=== PATIENT | male | born 1945 | race Caucasian/White ===

== ENCOUNTER → 2017-01-23 | Day surgery (SDC) | payer OTHER ==
[2017-01-14 11:05] VITALS: BMI 29.0
[~2017-01-23] VITALS: Ht 170.2 cm; Wt 86.4 kg
[~2017-01-23] MED LIST: CETI10TA84 PO; ECHINACEA PO; LIDOCAINE HCL 2% 2 ML VIAL (20MG/ML) ONE; MULT-506 PO; OXGN; PROPOFOL IV EMULSION 10 MG/ML 20 ML VIAL IV ONE; SNG10 PO; SODIUM CHLORIDE 0.9% 500ML 500 ML IV ONE; UMEC1AER INH; VNTHFA/IN INH
--- NOTE | 2017-01-23 08:36 | Endo History and Physical ---
History & Physical Date of Service: Jan 23, 2017. Chief Complaint: Screening colonoscopy Referring Physician: Dr. Waters History of Present Illness Average risk screening colonoscopy Past Surgical History Hx Cardiac Surgery: No Hx Internal Defibrillator: No Hx Pacemaker: No Hx Abdominal Surgery: Yes (ANGEL) Hx of Implantable Prosthesis: No Hx Post-Op Nausea and Vomiting: No Hx Cancer Surgery: No Hx Thoracic Surgery: No Hx Orthopedic: No Hx Urinary Tract Surgery: Yes (VESTICULAR SURGERY) Family History Esophogeal [place] Social History Smoking Status: Former Smoker Hx Substance Use: No Hx Alcohol Use: No Allergies Coded Allergies: No Known Allergies (Verified , 01/14/17) Current Medications Reported Home Medications Medications Dose Route/Sig Max Daily Dose Days Date Category Multivitamin (Multivitamins) Tab 1 Tab PO QAM 01/14/17 Reported Oxygen Gas 2 Liters NA HS 01/14/17 Reported Anoro Ellipta 62.5-25 Mcg/INH (Umeclidinium-Vilanterol) 1 Aer Aer 1 Puff INH QAM 01/14/17 Reported Ventolin Hfa (Albuterol) 200 Puffs/90323 Mcg Aers 2-4 Puffs INH Q6H PRN 01/14/17 Reported Singulair * (Montelukast Sodium) 10 Mg Tab 10 Mg PO QPM 08/04/07 Reported Zyrtec (Cetirizine HCl) 10 Mg Tab 10 Mg PO QAM 08/04/07 Reported Vital Signs Weight (Kilograms): 86.36 Height (Feet): 5 Height (Inches): 7 Physical Exam General Appearance: WD/WN, no apparent distress Respiratory/Chest: Auscultation: breath sounds normal, no wheezing Cardiovascular: Heart Auscultation: RRR, no murmurs Abdomen: Inspection & Palpation: soft, no tenderness, guarding & rebound Assessment and Plan Cleared for colonoscopy
[2017-01-23 08:39] VITALS: Ht 170.2 cm; Wt 86.4 kg
--- NOTE | 2017-01-23 09:32 | GI REPORT ---
Procedure Date: 01/23/2017 9:00 AM Procedure: Colonoscopy Indications: Screening for colorectal malignant neoplasm, Incidental - Chronic diarrhea Medicines: Propofol per Anesthesia Complications: No immediate complications. Estimated blood loss: None. Estimated Blood Loss: Estimated blood loss: none. Procedure: Pre-Anesthesia Assessment: - Prior to the procedure, a History and Physical was performed, and patient medications, allergies and sensitivities were reviewed. The patient's tolerance of previous anesthesia was reviewed. - ASA Grade Assessment: III - A patient with severe systemic disease. After I obtained informed consent, the scope was passed under direct vision. Throughout the procedure, the patient's blood pressure, pulse, and oxygen saturations were monitored continuously. The scope was introduced through the anus and advanced to the terminal ileum, with identification of the appendiceal orifice and IC valve. The colonoscopy was performed with ease. The patient tolerated the procedure well. The quality of the bowel preparation was excellent. The bowel preparation used was split dose MIralax. Findings: A 2 mm polyp was found in the transverse colon. The polyp was sessile. The polyp was removed with a cold snare. Resection and retrieval were complete. A 7 mm polyp was found in the descending colon. The polyp was semi-sessile. The polyp was removed with a hot snare. Resection and retrieval were complete. A 7 mm polyp was found in the sigmoid colon. The polyp was semi-sessile. The polyp was removed with a hot snare. Resection and retrieval were complete. Multiple diverticula were found in the sigmoid colon. Normal mucosa was found in the entire colon. Biopsies for histology were taken with a cold forceps from the entire colon for evaluation of microscopic colitis. Fluid aspiration was performed through the scope suction channel. The amount of fluid collected was 10 mL. Sample(s) were sent for bacterial cultures, Clostridium difficile and ova and parasites. Internal hemorrhoids were found during retroflexion. The hemorrhoids were small. Verification of patient identification for the specimens was done by the physician and nurse using the patient's name, date and medical record number. Impression: - One 2 mm polyp in the transverse colon, removed with a cold snare. Resected and retrieved. - One 7 mm polyp in the descending colon, removed with a hot snare. Resected and retrieved. - One 7 mm polyp in the sigmoid colon, removed with a hot snare. Resected and retrieved. - Diverticulosis in the sigmoid colon. - Normal mucosa in the entire examined colon. Biopsied. Fluid aspiration performed. - Internal hemorrhoids. - The colon was otherwise normal to the terminal ileum with retroflexed views of the colon and terminal ileum. Recommendation: - Repeat colonoscopy for surveillance based on pathology results. - Discharge patient to home (with escort). Brian Siddiqi M.D. Brian Siddiqi MD 01/23/2017 9:32:23 AM This report has been signed electronically. Note Initiated On: 01/23/2017 9:00 AM I attest to the content of the Intraoperative Record and orders documented therein, exceptions below
--- NOTE | 2017-01-23 09:33 | Discharge Instructions ---
Endoscopy Patient Instructions Date / Procedure(s) Performed Jan 23, 2017. Colonoscopy Allergy Information Coded Allergies: No Known Allergies (Verified , 01/14/17) Discharge Date / Findings Jan 23, 2017. Multiple polyps, diverticulosis, internal hemorrhoids Medication Instructions Restart Stopped Medication(s): Restart all medications today. Provider Instructions Activity Restrictions - No exercising or heavy lifting for 24 hours. - Do not drink alcohol the day of the procedure. - Do not drive a car or operate machinery until the day after the procedure. - Do not make any important decisions or sign important papers in 24 hours after the procedure. Following Day: - Return to full activity which may include returning to work/school. Diet Start your diet with liquids and light foods (jello, soup, juice, toast). Then eat your usual diet if not nauseated. Treatment For Common After Affects For mild abdominal pain, bloating, or excessive gas: - Rest - Eat lightly - Lie on right side Follow-Up Information Follow-up with Dr. cornejo as scheduled Anesthesia Information What You Should Know You have had a procedure that required some medicine to reduce anxiety and discomfort. This treatment is called moderate sedation. After receiving the treatment, you may be sleepy, but you will be able to breathe on your own. The effects of the treatment may last for several hours. Follow these instructions along with Activity/Diet recommendations noted above: * Do NOT do anything where dizziness or clumsiness would be dangerous. * Rest quietly at home today, then you can be up and about tomorrow. * Have a responsible person stay with you the rest of today. * You may have had an I.V. today. If so, you may take the dressing off later today. Recommendations Call your doctor if: * Trouble breathing * Continuous vomiting for more than 24 hours * Temperature above 101 degrees * Severe abdominal pain or bloating * Pain not relieved by pain medicine ordered * There is increased drainage or redness from any incision * A large amount of rectal bleeding greater than 2-3 tablespoons. (If you had a polyp/s removed or have hemorrhoids, a small amount of blood - from the rectum is to be expected.) * You have any unanswered questions or concerns. IN THE EVENT OF A SERIOUS EMERGENCY, GO TO THE NEAREST EMERGENCY ROOM Your discharge instructions were prepared by provider Brian Siddiqi. Patient Instructions Signature Page [place] Patient (or Guardian) Signature/Date: I have read and understand the instructions given to me by my caregivers. Caregiver/RN/Doctor Signature/Date: The above-named patient and/or guardian has received patient instructions on this date. + Original Patient Signature Page (only) stays with chart. Please make copy for patient.
--- NOTE | 2017-01-23 10:06 | Anesthesiology Progress Note ---
Anesthesia Post Op Note Date & Time Jan 23, 2017 at 10:06 Vital Signs Pain Intensity: 0 Vital Signs Past 12 Hours Date Time Temp Pulse Resp B/P (MAP) Pulse Ox O2 Delivery O2 Flow Rate FiO2 01/23/17 09:46 86 20 142/99 (113) 97 Room Air 01/23/17 09:42 107 20 123/88 (100) 97 Room Air 01/23/17 08:41 36.4 95 20 166/100 (122) 93 Room Air Notes Mental Status: alert / awake / arousable, participated in evaluation Pt Amnestic to Procedure: Yes Nausea / Vomiting: adequately controlled Pain: adequately controlled Airway Patency, RR, SpO2: stable & adequate BP & HR: stable & adequate Hydration State: stable & adequate Anesthetic Complications: no major complications apparent
[2017-01-23 10:15] VITALS: BP 159/105; PULSE 88; O2SAT 98
[2017-01-24 18:26] LABS: CRYPTOSPORIDIUM AG TC 37213 NOT DETECTED (NOT DETECTED); O&P GIARDIA AG NOT DETECTED (NOT DETECTED)
== END | disposition home or self-care (01) ==
LOC: C.GI 08:17
PROVIDERS: ATTEND Internal Medicine Gastroenterology
DX: Z12.11 Encounter for screening for malignant neoplasm of colon (principal); D12.4 Benign neoplasm of descending colon; D12.5 Benign neoplasm of sigmoid colon; D12.3 Benign neoplasm of transverse colon; K57.30 Diverticulosis of large intestine without perforation or abscess without bleeding; K64.8 Other hemorrhoids; R19.7 Diarrhea, unspecified; Z87.891 Personal history of nicotine dependence; Z99.81 Dependence on supplemental oxygen; Z79.899 Other long term (current) drug therapy

== ENCOUNTER → 2017-01-24 | Outpatient (CLI) | payer OTHER ==
[~2017-01-24] MED LIST changes: -LIDOCAINE HCL 2% 2 ML VIAL (20MG/ML) ONE; -PROPOFOL IV EMULSION 10 MG/ML 20 ML VIAL IV ONE; -SODIUM CHLORIDE 0.9% 500ML 500 ML IV ONE
[2017-01-24 17:26] LABS: BASO % 0.5 %; BASO ABS # 0.03 K/uL (0-0.2); COMPLETE YES; EOS % 3.3 %; HEMATOCRIT 48.6 % (42-52); IG% 0.2 %; LYMPH % 25.3 %; MEAN CORPUSCULAR HEMOGLOBIN 31.3 pg (25-34); MEAN CORPUSCULAR HGB CONC 33.3 g/dl (32-36); MEAN PLATELET VOLUME 9.7 fL (7.4-10.4); MONO % 14.1 %; NEUT % 56.6 %; PLATELET COUNT 213 K/uL (130-400); RED BLOOD COUNT 5.17 M/uL (4.7-6.1); WHITE BLOOD COUNT 6.32 K/uL (4.8-10.8)
[2017-01-24 18:20] LABS: ALT/SGPT 31 U/L (12-78); AST/SGOT 16 U/L (15-37); BLOOD UREA NITROGEN 16 mg/dl (7-18); BUN/CREATININE RATIO 16.2 (10-20); CALCIUM 9.2 mg/dl (8.5-10.1); CARBON DIOXIDE 30 mmol/L (21-32); CHLORIDE 106 mmol/L (98-107); CHOLESTEROL 180 mg/dl (0-200); CREATININE 0.98 mg/dl (0.60-1.40); GLUCOSE 86 mg/dl (70-99); POTASSIUM 3.6 mmol/L (3.5-5.1); SODIUM 143 mmol/L (136-145); TRIGLYCERIDES 106 mg/dl (0-150); VERY LOW DENSITY LIPOPROT CALC 21 mg/dl
[2017-01-24 18:23] LABS: ALKALINE PHOSPHATASE 59 U/L (45-117); CHOLESTEROL/HDL RATIO 2.8; HDL CHOLESTEROL 65 mg/dl; LDL CHOLESTEROL CALCULATED 94 mg/dl
== END | disposition home or self-care (01) ==
LOC: C.LABPVFM 15:53
PROVIDERS: ATTEND Neuromusculoskeletal Medicine & OMM
DX: Z00.00 Encounter for general adult medical examination without abnormal findings (principal); I10 Essential (primary) hypertension

== ENCOUNTER → 2017-03-05 | Outpatient (CLI) | payer OTHER ==
--- NOTE | 2017-03-05 09:12 | DIAGNOSTIC IMAGING REPORT ---
CHEST 2 VIEWS ROUTINE CLINICAL HISTORY: DISCOMFORT/EDEMA pain COMPARISON STUDY: 08/10/2007 FINDINGS: Mild stable chronic interstitial change. No focal infiltrate. Chronic linear scarring both lung bases. Stable nodular density medial right base. No acute infiltrate. IMPRESSION: Chronic change. No acute process. The above report was generated using voice recognition software. It may contain grammatical, syntax or spelling errors. Electronically signed by: Neal Gomez M.D. 03/05/2017 9:10 AM Dictated Date/Time: 03/05/2017 9:09 AM
[2017-03-05 12:51] LABS: BLOOD UREA NITROGEN 21 mg/dl (7-18); BUN/CREATININE RATIO 20.9 (10-20); CALCIUM 9.7 mg/dl (8.5-10.1); CARBON DIOXIDE 28 mmol/L (21-32); CHLORIDE 105 mmol/L (98-107); GLUCOSE 99 mg/dl (70-99); POTASSIUM 3.9 mmol/L (3.5-5.1); SODIUM 139 mmol/L (136-145)
[2017-03-05 13:09] LABS: LYME DISEASE AB IGG NEG (NEG); LYME DISEASE AB IGM NEG (NEG)
== END | disposition home or self-care (01) ==
LOC: C.RADPV 08:54
PROVIDERS: ATTEND Nurse Practitioner Family
DX: Z00.00 Encounter for general adult medical examination without abnormal findings (principal); R06.09 Other forms of dyspnea; R60.0 Localized edema; R07.89 Other chest pain

== ENCOUNTER 2017-05-29 21:37 | Inpatient (IN) | payer OTHER ==
[~2017-05-29] VITALS: Ht 170.2 cm; Wt 92.0 kg
[2017-05-29] MEDS ORDERED: NITROGLYCERIN OINT 2% 1GM PACKET EXT STA (21:44)
[2017-05-29] MEDS ORDERED: NITROGLYCERIN OINT 2% 1GM PACKET ONE (21:49)
--- NOTE | 2017-05-29 22:01 | EMERGENCY ROOM VISIT NOTE ---
History Report prepared by Jaison: Wiliam Antonio Under the Supervision of: Dr. Grupo Emery M.D. First contact with patient: 21:41 Stated Complaint: CHEST DISCOMFORT/HEAVY ARMS History of Present Illness The patient is a 71 year old male who presents to the Emergency Room with complaints of constant bilateral arm discomfort beginning a few hours ago. 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 He reports he had four episodes of diarrhea, developed chest pain, nausea, and became diaphoretic. The patient notes his arm heaviness was a 7/10 in severity and a 5/10 for the chest pain. He states he received aspirin and nitroglycerin. The patient reports he no longer has chest pain or nausea. He notes he uses an inhaler daily. The patient states he has not received a cardiac catheterization or a stress test because of his history of COPD. He report he recently was treated for hypertension. The patient denies vomiting. Source of History: patient Onset: few hours ago Position: other (bilateral arms) Symptom Intensity: 7/10 Quality: other (heaviness) Timing: constant Associated Symptoms: + diaphoresis, + chest pain, + nausea, + diarrhea, No vomiting Review of Systems See HPI for pertinent positives & negatives. A total of 10 systems reviewed and were otherwise negative. Past Medical & Surgical Medical Problems: (1) Chest pain of uncertain etiology Surgical Problems: (1) History of cholecystectomy Family History Patient reports no known family medical history. Social History Smoking Status: Former Smoker Alcohol Use: none Drug Use: none Marital Status: Housing Status: lives with significant other Occupation Status: retired Current/Historical Medications Scheduled Aspirin (Aspirin Ec), 81 MG PO QAM Cetirizine (Zyrtec), 10 MG PO QAM Echinacea (Echinacea), 3 CAP PO QAM Home O2 Therapy (Oxygen), 2 LITERS NA HS Hydrochlorothiazide (Hctz), 25 MG PO QAM Losartan Potassium (Cozaar), 25 MG PO QAM Montelukast Sodium (Singulair), 10 MG PO QPM Multivitamin (Multivitamin), 1 TAB PO QAM Umeclidinium-Vilanterol (Anoro Ellipta 62.5-25 Mcg/INH), 1 PUFF INH QAM Scheduled PRN Albuterol Hfa (Ventolin Hfa), 2 PUFFS INH Q4H PRN for SOB/Wheezing/Cough Azithromycin (Zithromax Z-Marko), 1 PKT PO UD PRN for COPD Rescue Kit Prednisone Tab (Prednisone), 10 MG PO UD PRN for COPD Rescue Kit Allergies Coded Allergies: No Known Allergies (Verified , 01/23/17) Physical Exam Vital Signs Date Time Temp Pulse Resp B/P (MAP) Pulse Ox O2 Delivery O2 Flow Rate FiO2 05/30/17 00:01 110 22 160/116 92 Room Air 05/29/17 23:31 106 19 147/108 93 Room Air 05/29/17 22:49 107 15 144/101 94 Room Air 05/29/17 22:19 Room Air 05/29/17 21:45 104 05/29/17 21:43 92 Room Air 05/29/17 21:40 92 Room Air 05/29/17 21:40 36.5 104 15 157/110 93 Room Air Physical Exam GENERAL: Patient is a healthy-appearing well-nourished 71 year old male. HEAD: Normocephalic atraumatic EYES: Ocular movements intact pupils equal and react to light OROPHARYNX mucous membranes are moist no exudates present no erythema or edema present NECK: Supple no nuchal rigidity CHEST: Good equal expansion LUNGS: Clear and equal to auscultation CARDIAC: Normal S1 and S2 ABDOMEN: Soft nontender no guarding BACK: No CVA tenderness EXTREMITIES: No pain upon palpation normal muscle strength in all groups no clubbing cyanosis or edema NEURO: Patient is following commands and answering questions appropriately. Alert and oriented x3 Cranial Nerves 2-12 grossly intact Medical Decision & Procedures ER Provider Diagnostic Interpretation: Radiology results as stated below per my review and radiologist interpretation: CHEST ONE VIEW PORTABLE HISTORY: Atypical CHEST PAIN COMPARISON: Chest 03/05/2017. FINDINGS: The lungs are hyperexpanded with apical predominant emphysematous changes. Increased markings at the lung bases is likely due to vascular crowding from the emphysema. No new focal lung consolidations to suggest pneumonia. No evidence for pulmonary edema. The heart is normal in size. No pleural effusions. No pneumothorax. Right lower lobe calcified granuloma is again noted. IMPRESSION: No significant change compared to the prior study. No acute process. Advanced emphysema is again noted. Electronically signed by: Miguelito Ramirez M.D. 05/29/2017 11:09 PM Dictated Date/Time: 05/29/2017 11:[address] ANGIOGRAPHY OF THE CHEST, PULMONARY EMBOLUS PROTOCOL CLINICAL HISTORY: Chest pain. COMPARISON STUDY: Chest CT October 22, 2007 and chest radiograph May 29, 2017. TECHNIQUE: Following IV administration of 94 mL of Optiray-320, helical axial images of the chest were obtained utilizing the pulmonary embolus protocol. Maximal intensity projections and sagittal and coronal reformats were viewed on an independent 3D workstation. IV contrast was administered without complication. A dose lowering technique was utilized adhering to the principles of ALARA. CT DOSE: 593.97 mGy.cm FINDINGS: No pulmonary emboli are identified. The size of the heart is normal. There is no evidence of thoracic aortic dissection. There is moderate coronary artery calcification. No pericardial effusion is present. Severe emphysema is noted. The central airways are patent. Linear right lower lobe opacity favors atelectasis. There is no consolidation to suggest pneumonia. Several right lung granulomas are noted, including a 2.2 cm right lower lobe granuloma. There is an indeterminate 6 mm left upper lobe nodule shown image 299 of 348. This is new since CT of October 22, 2007. A mild compression deformity involving superior endplate of L1 is age-indeterminate but likely old. A 2.5 cm left adrenal nodule measures low attenuation and is similar to CT of October 22, 2007. This is benign. Gallbladder is surgically absent. IMPRESSION: 1. No pulmonary emboli identified. 2. No acute intrathoracic findings. 3. Severe emphysema. 4. Linear right lower lobe opacity which favors atelectasis. 5. Indeterminate solid 6 mm left upper lobe nodule which is new since CT of October 22, 2007. Please follow according to the attached recommendations. Please refer to below summary of Fleischner criteria recommendations for follow-up of incidental CT nodules (Morris Georges, Guidelines for management of small pulmonary nodules detected on CT scans: A statement from the Fleischner Society, Radiology 237: [phone].) SOLID NODULES Solitary nodule size: <6 mm * low risk patients: no follow-up needed * high risk patients: optional CT at 12 months Solitary nodule size: 6-8 mm * low risk patients: follow-up at 6-12 months, then consider further follow-up at 18-24 months * high risk patients: initial follow-up CT at 6-12 months and then at 18-24 months if no change Solitary nodule size: >8 mm * either low or high risk patients - consider follow-up CT at 3 months, and/or CT-PET, and/or biopsy Multiple nodules size: <6 mm * low risk patients: no routine follow-up * high risk patients: optional CT at 12 months Multiple nodules size: 6-8 mm * low risk patients: follow-up at 3-6 months, then consider further follow-up at 18-24 months * high risk patients: follow-up at 3-6 months, then at 18-24 months if no change Multiple nodules size: >8 mm * low risk patients: follow-up at 3-6 months, then consider further follow-up at 18-24 months * high risk patients: follow-up at 3-6 months, then at 18-24 months if no change Note: newly detected indeterminate nodule in persons 35 years of age or older. * low risk patients: minimal or absent history of smoking and/or other known risk factors * high risk patients: history of smoking or of other known risk factors (e.g. first degree relative with lung cancer, or exposure to asbestos, radon, uranium) * if a nodule up to 8 mm is partly solid or is ground glass further follow-up is required after 24 months to exclude possible slow growing adenocarcinoma (TAB) Electronically signed by: Ubaldo Hewitt M.D. 05/30/2017 7:05 AM Dictated Date/Time: 05/30/2017 6:45 AM Laboratory Results 05/29/17 22:00 Test 05/29/17 22:00 05/29/17 22:28 05/29/17 22:32 Est Creatinine Clear Calc Drug Dose 68.8 ml/min Estimated GFR () 78.1 Estimated GFR (Non- 67.4 BUN/Creatinine Ratio 22.9 (10-20) Calcium Level 8.8 mg/dl (8.5-10.1) Total Bilirubin 0.4 mg/dl (0.2-1) Direct Bilirubin 0.1 mg/dl (0-0.2) Aspartate Amino Transf (AST/SGOT) 20 U/L (15-37) Alanine Aminotransferase (ALT/SGPT) 29 U/L (12-78) Alkaline Phosphatase 51 U/L (45-117) Total Creatine Kinase 106 U/L (39-308) Creatine Kinase MB 1.7 ng/ml (0.5-3.6) Creatine Kinase MB Ratio 1.6 (0-3.0) Total Protein 7.7 gm/dl (6.4-8.2) Albumin 4.0 gm/dl (3.4-5.0) Lipase 96 U/L (73-393) Bedside D-Dimer > 450 ng/mlFEU (0-450) Bedside Hemoglobin 15.3 g/dl (14.0-18.0) Bedside Hematocrit 45 % (42-52) Bedside Sodium 142 mEq/L (135-144) Bedside Potassium 3.5 mEq/L (3.3-5.0) Bedside Chloride 103 mEq/L (101-112) Bedside Total CO2 28 mEq/l (24-31) Anion Gap 16.0 mmol/L (16-25) Bedside Blood Urea Nitrogen 27 mg/dl (7-18) Bedside Creatinine 1.0 mg/dl (0.6-1.3) Bedside Glucose (other) 185 mg/dl (70-99) Bedside Ionized Calcium (Bassem) 1.14 mmol/l (1.12-1.32) Labs reviewed by ED physician. Medications Administered Medications (Trade) Dose Ordered Sig/Bora Route Start Time Stop Time Status Last Admin Dose Admin Nitroglycerin (Nitroglycerin 2% Oint) 1 inch NOW STAT EXT 05/29/17 21:44 05/29/17 21:45 DC 05/29/17 21:51 1 INCH ECG Indication: weakness Rate (beats per minute): 108 Rhythm: sinus tachycardia Findings: no acute ischemic change, no ectopy ED Course 2141: Past medical records reviewed. The patient was evaluated in room B07. A complete history and physical examination was performed. 2143: Ordered Nitroglycerin 1 inch EXT Medical Decision Differential diagnosis: Etiologies such as cardiac ischemia, aortic dissection, pulmonary embolism, pneumonia, pneumothorax, musculoskeletal, infections, pericarditis, myocarditis , esophageal rupture, gastrointestinal, as well as others were entertained. This is a 71-year-old male who presents emergency department complaining of chest pain. The patient had a vasovagal episode and began complaining of the chest pain which was relieved by nitroglycerin. He was given aspirin and placed a nitroglycerin glycerin paced here in the emergency department. I did discuss this case with the hospitalist service who agreed to admit the patient. Patient and are in agreement with the treatment plan. Medication Reconcilliation Current Medication List: was personally reviewed by me Blood Pressure Screening Patient's blood pressure: Elevated blood pressure Blood pressure disposition: Referred to PCP Impression Primary Impression: CHEST PAIN, UNSPECIFIED Scribe Attestation The scribe's documentation has been prepared under my direction and personally reviewed by me in its entirety. I confirm that the note above accurately reflects all work, treatment, procedures, and medical decision making performed by me. Departure Information Dispostion Still a Patient Referrals Bill Waters M.D. (PCP)
[2017-05-29 22:45] LABS: ISTAT HEMOGLOBIN 15.3 g/dl (14.0-18.0); ISTAT IONIZED CALCIUM 1.14 mmol/l (1.12-1.32)
[2017-05-29 22:46] LABS: BASO % 0.3 %; BASO ABS # 0.03 K/uL (0-0.2); COMPLETE YES; EOS % 0.5 %; HEMATOCRIT 44.7 % (42-52); IG% 0.3 %; LYMPH % 6.3 %; LYMPH ABS # 0.75 K/uL (1.2-3.4); MEAN CELL VOLUME 94.9 fL (80-100); MEAN CORPUSCULAR HEMOGLOBIN 32.9 pg (25-34); MEAN CORPUSCULAR HGB CONC 34.7 g/dl (32-36); MEAN PLATELET VOLUME 9.9 fL (7.4-10.4); MONO % 7.3 %; NEUT % 85.3 %; PLATELET COUNT 198 K/uL (130-400); RED BLOOD COUNT 4.71 M/uL (4.7-6.1); WHITE BLOOD COUNT 11.87 K/uL (4.8-10.8)
[2017-05-29 22:47] LABS: BUN/CREATININE RATIO 22.9 (10-20); CALCIUM 8.8 mg/dl (8.5-10.1); CREATININE 1.11 mg/dl (0.60-1.40); POTASSIUM 3.5 mmol/L (3.5-5.1)
[2017-05-29] MEDS ORDERED: PRED10TA PO (22:48)
[2017-05-29] MEDS ORDERED: HYDR25TA4 PO (22:48)
[2017-05-29] MEDS ORDERED: LOSA25TA18 PO (22:48)
[2017-05-29] MEDS ORDERED: ECHI80CA PO (22:48)
[2017-05-29] MEDS ORDERED: AZITTAB PO (22:48)
[2017-05-29] MEDS ORDERED: ASPI81TA28 PO (22:48)
[2017-05-29] MEDS ORDERED: MONT1TAB3 PO (22:48)
[2017-05-29 22:52] LABS: CKMB/CK RATIO 1.6 (0-3.0)
[2017-05-29] MEDS ORDERED: OPTIRAY 320 IV PRN (23:00)
--- NOTE | 2017-05-29 23:10 | DIAGNOSTIC IMAGING REPORT ---
CHEST ONE VIEW PORTABLE HISTORY: Atypical CHEST PAIN COMPARISON: Chest 03/05/2017. FINDINGS: The lungs are hyperexpanded with apical predominant emphysematous changes. Increased markings at the lung bases is likely due to vascular crowding from the emphysema. No new focal lung consolidations to suggest pneumonia. No evidence for pulmonary edema. The heart is normal in size. No pleural effusions. No pneumothorax. Right lower lobe calcified granuloma is again noted. IMPRESSION: No significant change compared to the prior study. No acute process. Advanced emphysema is again noted. Electronically signed by: Miguelito Ramirez M.D. 05/29/2017 11:09 PM Dictated Date/Time: 05/29/2017 11:06 PM
[2017-05-30] VITALS (12 sets, daily range): BP systolic 115–155; BP diastolic 82–105; PULSE 82–114; TEMP 36.5–36.9; O2SAT 91–98; Ht 170.2 cm; Wt 92.0 kg
[2017-05-30] MEDS ORDERED: ONDANSETRON INJ 2 MG/ML 2 ML VIAL IV PRN (00:30)
[2017-05-30] MEDS ORDERED: MoRPHine SULFATE 2 MG/ML CARP IV PRN (00:30)
[2017-05-30] MEDS ORDERED: ALBUTEROL HFA 8 GM INHALER INH PRN (00:30)
[2017-05-30] MEDS ORDERED: MAGNESIUM HYDROXIDE SUSP 30 ML UDC PO PRN (00:30)
[2017-05-30] MEDS ORDERED: ACETAMINOPHEN 325 MG TAB PO PRN (00:30)
[2017-05-30 01:09] LABS: PARTIAL THROMBOPLASTIN RATIO 0.9
[2017-05-30] MEDS ORDERED: HEPARIN 25,000 UNIT/500ML D5W 500 ML IV PRN (01:45)
[2017-05-30] MEDS ORDERED: METOPROLOL TARTRATE 25 MG TAB PO ONE ×2 (02:03→09:45)
--- NOTE | 2017-05-30 02:13 | History and Physical ---
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 The patient was at the concert when he suddenly started to suffer from bilat UE pain which radiated down both arms and suddenly felt nauseated. He sent to the bathroom and had a BM and while sitting he felt the pain improve. He then got up and as he was walking the bilat UE pain returned and had new onset left sided chest pain which was a 7/10. He then decided to come in for evaluation. The patient was evaluated after 325 mg of ASA and NTG and pain in arms and chest have resolved however he notes with any walking the arm pain will return. Patient has no history of DC in him for family. Quite smoking 4 years prior. Past Medical/Surgical History Surgical Problems: (1) History of cholecystectomy Status: Resolved Family History Patient reports no known family medical history. Social History Smoking Status: Former Smoker Smokeless Tobacco Use: No Alcohol Use: none Drug Use: none Marital Status: Housing status: lives with family Occupational Status: retired Immunizations History of Influenza Vaccine: Yes Influenza Vaccine Date: Apr 06, 2007 History of Tetanus Vaccine?: Yes Tetanus Immunization Date: Apr 06, 1999 History of Pneumococcal: Yes Pneumococcal Date: Aug 14, 2007 History of Hepatitis B Vaccine: No Multi-Drug Resistant Organisms History of MDRO: No Allergies Coded Allergies: No Known Allergies (Verified , 01/23/17) Home Medications Scheduled Aspirin (Aspirin Ec), 81 MG PO QAM Cetirizine (Zyrtec), 10 MG PO QAM Echinacea (Echinacea), 3 CAP PO QAM Home O2 Therapy (Oxygen), 2 LITERS NA HS Hydrochlorothiazide (Hctz), 25 MG PO QAM Losartan Potassium (Cozaar), 25 MG PO QAM Montelukast Sodium (Singulair), 10 MG PO QPM Multivitamin (Multivitamin), 1 TAB PO QAM Umeclidinium-Vilanterol (Anoro Ellipta 62.5-25 Mcg/INH), 1 PUFF INH QAM Scheduled PRN Albuterol Hfa (Ventolin Hfa), 2 PUFFS INH Q4H PRN for SOB/Wheezing/Cough Azithromycin (Zithromax Z-Marko), 1 PKT PO UD PRN for COPD Rescue Kit Prednisone Tab (Prednisone), 10 MG PO UD PRN for COPD Rescue Kit Review of Systems Constitutional: + sweats, No fever, No chills Eyes: No worsening of vision ENT: No hearing loss Respiratory: No cough, No sputum, No wheezing, No shortness of breath, No dyspnea on exertion, No dyspnea at rest Cardiovascular: + chest pain Abdomen: + nausea, + diarrhea, No vomiting, No constipation Musculoskeletal: No joint pain, No muscle pain Genitourinary - Male: No hematuria, No dysuria Neurologic: + weakness, No numbness/tingling, No balance problems Psychiatric: No depression symptoms Endocrine: + fatigue Hematologic / Lymphatic: No abnormal bleeding/bruising Integumentary: No rash Physical Exam Vital Signs Date Time Temp Pulse Resp B/P (MAP) Pulse Ox O2 Delivery O2 Flow Rate FiO2 05/30/17 01:41 36.9 114 16 155/98 93 Room Air 05/30/17 01:12 112 15 150/112 90 05/30/17 00:31 108 17 141/111 90 Room Air 05/30/17 00:01 110 22 160/116 92 Room Air 05/29/17 23:31 106 19 147/108 93 Room Air 05/29/17 22:49 107 15 144/101 94 Room Air 05/29/17 22:19 Room Air 05/29/17 21:45 104 05/29/17 21:43 92 Room Air 05/29/17 21:40 92 Room Air 05/29/17 21:40 36.5 104 15 157/110 93 Room Air General Appearance: no apparent distress Head: normocephalic, atraumatic Eyes: normal inspection ENT: normal ENT inspection Neck: supple Respiratory/Chest: normal breath sounds, no respiratory distress, no accessory muscle use Cardiovascular: regular rate, rhythm, no murmur, normal peripheral pulses Abdomen/GI: normal bowel sounds, non tender, soft Back: normal inspection, no CVA tenderness Extremities/Musculoskelatal: no calf tenderness, normal range of motion, + pedal edema (tr bilat pedal edema (BL)) Neurologic/Psych: alert, normal mood/affect, oriented x 3 Skin: normal color, warm/dry, no rash Lymphatic: no adenopathy Diagnostics Laboratory Results Results Past 24 Hours Test 05/29/17 22:00 05/29/17 22:28 05/29/17 22:32 05/30/17 00:25 Range/Units White Blood Count 11.87 4.8-10.8 K/uL Red Blood Count 4.71 4.7-6.1 M/uL Hemoglobin 15.5 14.0-18.0 g/dL Hematocrit 44.7 42-52 % Mean Corpuscular Volume 94.9 80-100 fL Mean Corpuscular Hemoglobin 32.9 25-34 pg Mean Corpuscular Hemoglobin Concent 34.7 32-36 g/dl Platelet Count 198 130-400 K/uL Mean Platelet Volume 9.9 7.4-10.4 fL Neutrophils (%) (Auto) 85.3 % Lymphocytes (%) (Auto) 6.3 % Monocytes (%) (Auto) 7.3 % Eosinophils (%) (Auto) 0.5 % Basophils (%) (Auto) 0.3 % Neutrophils # (Auto) 10.12 1.4-6.5 K/uL Lymphocytes # (Auto) 0.75 1.2-3.4 K/uL Monocytes # (Auto) 0.87 0.11-0.59 K/uL Eosinophils # (Auto) 0.06 0-0.5 K/uL Basophils # (Auto) 0.03 0-0.2 K/uL RDW Standard Deviation 45.3 36.4-46.3 fL RDW Coefficient of Variation 13.1 11.5-14.5 % Immature Granulocyte % (Auto) 0.3 % Immature Granulocyte # (Auto) 0.04 0.00-0.02 K/uL Sodium Level 138 136-145 mmol/L Potassium Level 3.5 3.5-5.1 mmol/L Chloride Level 104 98-107 mmol/L Carbon Dioxide Level 25 21-32 mmol/L Anion Gap 9.0 16.0 16-25 mmol/L Blood Urea Nitrogen 25 7-18 mg/dl Creatinine 1.11 0.60-1.40 mg/dl Est Creatinine Clear Calc Drug Dose 68.8 ml/min Estimated GFR () 78.1 Estimated GFR (Non- 67.4 BUN/Creatinine Ratio 22.9 10-20 Random Glucose 180 70-99 mg/dl Calcium Level 8.8 8.5-10.1 mg/dl Total Bilirubin 0.4 0.2-1 mg/dl Direct Bilirubin 0.1 0-0.2 mg/dl Aspartate Amino Transf (AST/SGOT) 20 15-37 U/L Alanine Aminotransferase (ALT/SGPT) 29 12-78 U/L Alkaline Phosphatase 51 45-117 U/L Total Creatine Kinase 106 39-308 U/L Creatine Kinase MB 1.7 0.5-3.6 ng/ml Creatine Kinase MB Ratio 1.6 0-3.0 Troponin I 0.040 0-0.045 ng/ml Total Protein 7.7 6.4-8.2 gm/dl Albumin 4.0 3.4-5.0 gm/dl Lipase 96 73-393 U/L Bedside D-Dimer > 450 0-450 ng/mlFEU Bedside Hemoglobin 15.3 14.0-18.0 g/dl Bedside Hematocrit 45 42-52 % Bedside Sodium 142 135-144 mEq/L Bedside Potassium 3.5 3.3-5.0 mEq/L Bedside Chloride 103 101-112 mEq/L Bedside Total CO2 28 24-31 mEq/l Bedside Blood Urea Nitrogen 27 7-18 mg/dl Bedside Creatinine 1.0 0.6-1.3 mg/dl Bedside Glucose (other) 185 70-99 mg/dl Bedside Ionized Calcium (Bassem) 1.14 1.12-1.32 mmol/l Test 05/30/17 00:56 05/30/17 01:41 Range/Units Activated Partial Thromboplast Time 23.6 21.0-31.0 SECONDS Partial Thromboplastin Ratio 0.9 Diagnostic Radiology CHEST ONE VIEW PORTABLE HISTORY: Atypical CHEST PAIN COMPARISON: Chest 03/05/2017. FINDINGS: The lungs are hyperexpanded with apical predominant emphysematous changes. Increased markings at the lung bases is likely due to vascular crowding from the emphysema. No new focal lung consolidations to suggest pneumonia. No evidence for pulmonary edema. The heart is normal in size. No pleural effusions. No pneumothorax. Right lower lobe calcified granuloma is again noted. IMPRESSION: No significant change compared to the prior study. No acute process. Advanced emphysema is again noted. CTA - no PE - 2.2 cm pulmonary nodule in right lung - 2.9 cm nodule left adrenal EKG HR 100 no ischemic changes, no ectopy Impression Assessment and Plan This is a 71 yo m with a history of HTN and COPD presenting with chest pain concerning for cardiac ischemia Chest pain NYD - tele admission - heparin standard without a bolus - Holding HCTZ and losartan and administration of 25 mg of metoprolol - echo in am -- trend troponin - ekg in am COPD - albuterol prn, singular 10 mg - Ellipta held HTN antihypertensives as above DVT Prophylaxis heparin Attending addendum: I have physically seen this patient, have supervised the medical residents activities, and agree with the H&P unless as otherwise noted. Assessment and Plan: Unstable angina/hypertension-- The patient will be admitted to telemetry for serial cardiac enzymes, cardiac rhythm monitoring and a 2-D echocardiogram with Dopplers. Patient's symptoms began 2 days prior to arrival with substernal and precordial chest discomfort, with significantly worsening symptoms today. Continue aspirin Place on Nitropaste 1 inch anterior chest wall every 6 hours Start metoprolol tartrate 25 mg by mouth twice a day Heparin IV standard dosing without bolus via protocol Hold HCTZ and losartan for now COPD/pulmonary nodules/tobacco use history-- Hold Ellipta Continue Singulair Albuterol HFA when necessary Follow nodules per protocol Left adrenal gland nodule 2.9 cm-- Will need an MRI for further assessment Level of Care Telemetry Advanced Directives Existing Advance Directive: No Existing Living Will: No Existing Power of Director [employer]: No Resuscitation Status FULL RESUSCITATION VTE Prophylaxis VTE Risk Assessment Done? Y/N: Yes Risk Level: Moderate Given or contraindicated: Other Anticoagulation Social Service Consult None Apply Note Total Time: Critical Care 30 - 74 minutes
[2017-05-30 06:12] LABS: BASO % 0.2 %; BASO ABS # 0.02 K/uL (0-0.2); COMPLETE YES; EOS % 0.2 %; HEMATOCRIT 43.3 % (42-52); IG% 0.1 %; LYMPH % 11.5 %; LYMPH ABS # 0.93 K/uL (1.2-3.4); MEAN CELL VOLUME 93.9 fL (80-100); MEAN CORPUSCULAR HEMOGLOBIN 32.1 pg (25-34); MEAN CORPUSCULAR HGB CONC 34.2 g/dl (32-36); MONO % 11.6 %; NEUT % 76.4 %; PLATELET COUNT 198 K/uL (130-400); RED BLOOD COUNT 4.61 M/uL (4.7-6.1); WHITE BLOOD COUNT 8.08 K/uL (4.8-10.8)
[2017-05-30 06:58] LABS: CHOLESTEROL/HDL RATIO 2.2
[2017-05-30 07:03] LABS: ESTIMATED AVERAGE GLUCOSE 114 mg/dl; HA1C FLAG Normal (Normal)
--- NOTE | 2017-05-30 07:06 | DIAGNOSTIC IMAGING REPORT ---
CT ANGIOGRAPHY OF THE CHEST, PULMONARY EMBOLUS PROTOCOL CLINICAL HISTORY: Chest pain. COMPARISON STUDY: Chest CT October 22, 2007 and chest radiograph May 29, 2017. TECHNIQUE: Following IV administration of 94 mL of [id number]-320, helical axial images of the chest were obtained utilizing the pulmonary embolus protocol. Maximal intensity projections and sagittal and coronal reformats were viewed on an independent 3D workstation. IV contrast was administered without complication. A dose lowering technique was utilized adhering to the principles of ALARA. CT DOSE: 593.97 mGy.cm FINDINGS: No pulmonary emboli are identified. The size of the heart is normal. There is no evidence of thoracic aortic dissection. There is moderate coronary artery calcification. No pericardial effusion is present. Severe emphysema is noted. The central airways are patent. Linear right lower lobe opacity favors atelectasis. There is no consolidation to suggest pneumonia. Several right lung granulomas are noted, including a 2.2 cm right lower lobe granuloma. There is an indeterminate 6 mm left upper lobe nodule shown image 299 of [id number]. This is new since CT of October 22, 2007. A mild compression deformity involving superior endplate of L1 is age-indeterminate but likely old. A 2.5 cm left adrenal nodule measures low attenuation and is similar to CT of October 22, 2007. This is benign. Gallbladder is surgically absent. IMPRESSION: 1. No pulmonary emboli identified. 2. No acute intrathoracic findings. 3. Severe emphysema. 4. Linear right lower lobe opacity which favors atelectasis. 5. Indeterminate solid 6 mm left upper lobe nodule which is new since CT of October 22, 2007. Please follow according to the attached recommendations. Please refer to below summary of Fleischner criteria recommendations for follow-up of incidental CT nodules (Morris Georges, Guidelines for management of small pulmonary nodules detected on CT scans: A statement from the Fleischner Society, Radiology 237: [phone].) SOLID NODULES Solitary nodule size: <6 mm * low risk patients: no follow-up needed * high risk patients: optional CT at 12 months Solitary nodule size: 6-8 mm * low risk patients: follow-up at 6-12 months, then consider further follow-up at 18-24 months * high risk patients: initial follow-up CT at 6-12 months and then at 18-24 months if no change Solitary nodule size: >8 mm * either low or high risk patients - consider follow-up CT at 3 months, and/or CT-PET, and/or biopsy Multiple nodules size: <6 mm * low risk patients: no routine follow-up * high risk patients: optional CT at 12 months Multiple nodules size: 6-8 mm * low risk patients: follow-up at 3-6 months, then consider further follow-up at 18-24 months * high risk patients: follow-up at 3-6 months, then at 18-24 months if no change Multiple nodules size: >8 mm * low risk patients: follow-up at 3-6 months, then consider further follow-up at 18-24 months * high risk patients: follow-up at 3-6 months, then at 18-24 months if no change Note: newly detected indeterminate nodule in persons 35 years of age or older. * low risk patients: minimal or absent history of smoking and/or other known risk factors * high risk patients: history of smoking or of other known risk factors (e.g. first degree relative with lung cancer, or exposure to asbestos, radon, uranium) * if a nodule up to 8 mm is partly solid or is ground glass further follow-up is required after 24 months to exclude possible slow growing adenocarcinoma (TAB) Electronically signed by: Ubaldo Hewitt M.D. 05/30/2017 7:05 AM Dictated Date/Time: 05/30/2017 6:45 AM
[2017-05-30] MEDS ORDERED: PERFLUTREN LIPID MICROSPHERE (DEFINITY) IV ONE (07:26)
[2017-05-30 07:59] LABS: PARTIAL THROMBOPLASTIN RATIO 1.8
[2017-05-30] MEDS: ANORO ELLIPTA~ORDER AWAITING ACTION SCH ×3 (08:00→18:47)
[2017-05-30] MEDS: CETIRIZINE HCL 10 MG TAB PO SCH (08:49)
[2017-05-30] MEDS: ASPIRIN 81 MG ECTAB PO SCH (08:49)
[2017-05-30] MEDS: MULTIVITAMIN TAB PO SCH (08:49)
[2017-05-30] MEDS ORDERED: HYDROCHLOROTHIAZIDE 25 MG TAB PO SCH (09:00)
[2017-05-30] MEDS ORDERED: LOSARTAN POTASSIUM 25 MG TAB PO SCH (09:00)
[2017-05-30] MEDS ORDERED: ECHINACEA PO SCH (09:00)
[2017-05-30] MEDS ORDERED: METOPROLOL TARTRATE 25 MG TAB PO SCH (09:00)
--- NOTE | 2017-05-30 09:12 | Progress Note ---
Progress Note Date of Service May 30, 2017. Progress Note Patient admitted after midnight S: Feels ok, no chest pain. [place] this was from his heart all along. Is resting comfortably. O: Vitals per EMR Troponin elevated to 14 this AM Echo completed, pending read Gen: awake, alert, NAD CVS: RRR, no MRG Chest: CTAB Abd: SNT Ext: No peripheral edema A/P: 1. NSTEMI Discussed w/Dr Bean, will have a cath around 1pm Heparin drip to continue until then Will re-assess afterwards 2. COPD/ Emphysema Continue current inhaler regime 3. HTN Current home meds on hold Resident Tracking Resident Involvement: Resident Care Provided Care Provided: Adult Hospital Medicine
--- NOTE | 2017-05-30 10:11 | Cardiology Consultation ---
Cardiology Consultation Date of Consultation: May 30, 2017. Requesting Physician: Dr. Pierre Attending Physician: Dr. Watts Reason for Consultation: NSTEMI Pt evaluation today including: conversation w/ patient, physical exam, chart review, lab review, review of studies, review of inpatient medication list, conversation w/ attending History of Present Illness Mr. Kent is a 71-year-old male with a past medical history significant for hypertension, former tobacco abuse, and COPD who presented to the ED last evening via EMS in the setting of chest pain and bilateral arm pain. The patient reports that his daughter is an 8th grade instrumental musician, and last evening was the [employer]'s [employer] concert. He and his attended the concert , and while he was walking into the auditorium, he developed pain down his bilateral arms. The discomfort improved when he paused inside the doors of the auditorium, but worsened again as he walked to his seat. When he got to his seat , he felt warm and nauseous. He then felt as though he had to have a bowel movement, and he walked to the restroom. He was in the restroom for about 45 minutes, and the arm pain improved the longer he sat there. While in the stall, he developed a substernal chest discomfort. When he got up to walk out of the restroom, the arm pain recurred, and he decided to call 911. In the EMS they gave him sublingual nitro, and it helped to alleviate his symptoms. The mild discomfort persisted for a couple of hours after arriving to the hospital, but it gradually resolved overnight. His initial troponin on arrival was normal, but his second troponin was elevated at 14.2. His EKGs have shown no acute ST-T wave abnormality. He was started on IV Heparin as well as metoprolol tartrate 25 mg BID and aspirin. His CLINIC MANAGER Losartan and HCTZ is on hold. He is currently being seen in his room at 285. He reports that he has not had a recurrence of the arm pain or chest discomfort since it resolved overnight. He denies shortness of breath but admits to chronic dyspnea on exertion secondary to his COPD. He denies orthopnea or PND. He reports chronic lower extremity edema, which is relatively well controlled with HCTZ as an outpatient. He denies palpitations, lightheadedness, dizziness, syncope, or presyncope. He denies abnormal bleeding such as melena, hematochezia, or hematuria. He denies cerebrovascular symptoms. Review of Systems: As noted in HPI. All other 10 point ROS reviewed and otherwise negative. Past Medical/Surgical History 1. Hypertension 2. COPD 3. Chronic lower extremity edema 4. S/P Cholecystectomy 20 years ago 5. S/P Varicocele repair 30 years ago Family History Patient reports no known family medical history. No family history of CAD. Social History Smoking Status: Former Smoker History of Alcohol Use: No He is . He has a daughter and a son as well as 1 grandchild. 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 He smoked 1-1.5 packs of cigarettes for 30 years but quit 4 years ago. He notes social alcohol use. He denies illicit drug use. Allergies Coded Allergies: No Known Allergies (Verified , 01/23/17) Medications Current Inpatient Medications Medications (Trade) Dose Ordered Sig/Bora Route Start Time Stop Time Status Last Admin Dose Admin Ioversol (Optiray 320) 100 ml UD PRN IV 05/29/17 23:00 06/02/17 22:59 Acetaminophen (Tylenol Tab) 650 mg Q4H PRN PO 05/30/17 00:30 06/29/17 00:29 Al Hydrox/Mg Hydrox/Simethicone (Maalox Max Susp) 15 ml Q4H PRN PO 05/30/17 00:30 06/29/17 00:29 Magnesium Hydroxide (Milk Of Magnesia Susp) 30 ml Q12H PRN PO 05/30/17 00:30 06/29/17 00:29 Ondansetron HCl (Zofran Inj) 4 mg Q6H PRN IV 05/30/17 00:30 06/29/17 00:29 Nitroglycerin (Nitrostat Tab) 0.4 mg UD PRN SL 05/30/17 00:30 06/29/17 00:29 Morphine Sulfate (MoRPHine SULFATE INJ) 2 mg Q30M PRN IV 05/30/17 00:30 06/13/17 00:29 Albuterol (Ventolin Hfa Inhaler) 2 puffs Q4H PRN INH 05/30/17 00:30 06/29/17 00:29 Aspirin (Ecotrin Tab) 81 mg QAM PO 05/30/17 09:00 1/14/18 08:59 05/30/17 08:49 81 MG Cetirizine HCl (zyrTEC TAB) 10 mg QAM PO 05/30/17 09:00 06/29/17 08:59 05/30/17 08:49 10 MG Montelukast Sodium (Singulair Tab) 10 mg QPM PO 05/30/17 21:00 06/29/17 20:59 Multivitamins (Multivitamin Tab) 1 tab QAM PO 05/30/17 09:00 06/29/17 08:59 05/30/17 08:49 1 TAB Prednisone (PredniSONE TAB) 10 mg UD PRN PO 05/30/17 00:30 06/29/17 00:29 Future Hold Miscellaneous Information (Order Awaiting Action) 1 ea QS N/A 05/30/17 08:00 06/29/17 07:59 Heparin Sodium/ Dextrose 500 ml @ 27 mls/hr [id number] PRN IV 05/30/17 01:45 06/29/17 01:44 05/30/17 01:44 27 MLS/HR Metoprolol Tartrate (Lopressor Tab) 25 mg BID PO 05/30/17 09:00 06/29/17 08:59 05/30/17 08:49 25 MG Physical Exam Vital Signs Past 12 Hours Date Time Temp Pulse Resp B/P (MAP) Pulse Ox O2 Delivery O2 Flow Rate FiO2 05/30/17 08:17 36.6 101 24 120/88 (99) 95 Nasal Cannula 2.0 05/30/17 04:00 Nasal Cannula 2.0 05/30/17 04:00 36.8 96 18 137/98 (111) 98 Nasal Cannula 2.0 05/30/17 01:41 36.9 114 16 155/98 93 Room Air 05/30/17 01:12 112 15 150/112 90 05/30/17 00:31 108 17 141/111 90 Room Air 05/30/17 00:01 110 22 160/116 92 Room Air 05/29/17 23:31 106 19 147/108 93 Room Air 05/29/17 22:49 107 15 144/101 94 Room Air 05/29/17 22:19 Room Air 05/29/17 21:45 104 05/29/17 21:43 92 Room Air 05/29/17 21:40 92 Room Air 05/29/17 21:40 36.5 104 15 157/110 93 Room Air Constitutional: Alert, oriented, in no acute distress. Oxygen via nasal cannula HEENT: Head is atraumatic and normocephalic. EOMs intact. Sclera anicteric. Face is symmetric. No perioral cyanosis. Mucous membranes moist. Neck: Supple, no JVD, no carotid bruits Pulmonary: Normal respiratory effort, clear to auscultation bilaterally Cardiac: Tachycardic, regular rhythm, normal S1 and S2, no gallops, no rubs, no murmurs Extremities: +1 lower extremity edema bilaterally. No clubbing or cyanosis. Pulses 2+ and symmetric Abdomen: Normal bowel sounds, soft, non-tender, no abdominal mass palpated Skin: Normal skin color, turgor, and pigmentation, no rash, no skin lesions Neurological: Oriented to person, place, and time Data Laboratory Results: Last 24 Hours Test 05/29/17 22:00 05/29/17 22:28 05/29/17 22:32 05/30/17 00:25 White Blood Count 11.87 K/uL Red Blood Count 4.71 M/uL Hemoglobin 15.5 g/dL Hematocrit 44.7 % Mean Corpuscular Volume 94.9 fL Mean Corpuscular Hemoglobin 32.9 pg Mean Corpuscular Hemoglobin Concent 34.7 g/dl Platelet Count 198 K/uL Mean Platelet Volume 9.9 fL Neutrophils (%) (Auto) 85.3 % Lymphocytes (%) (Auto) 6.3 % Monocytes (%) (Auto) 7.3 % Eosinophils (%) (Auto) 0.5 % Basophils (%) (Auto) 0.3 % Neutrophils # (Auto) 10.12 K/uL Lymphocytes # (Auto) 0.75 K/uL Monocytes # (Auto) 0.87 K/uL Eosinophils # (Auto) 0.06 K/uL Basophils # (Auto) 0.03 K/uL RDW Standard Deviation 45.3 fL RDW Coefficient of Variation 13.1 % Immature Granulocyte % (Auto) 0.3 % Immature Granulocyte # (Auto) 0.04 K/uL Sodium Level 138 mmol/L Potassium Level 3.5 mmol/L Chloride Level 104 mmol/L Carbon Dioxide Level 25 mmol/L Anion Gap 9.0 mmol/L 16.0 mmol/L Blood Urea Nitrogen 25 mg/dl Creatinine 1.11 mg/dl Est Creatinine Clear Calc Drug Dose 68.8 ml/min Estimated GFR () 78.1 Estimated GFR (Non- 67.4 BUN/Creatinine Ratio 22.9 Random Glucose 180 mg/dl Calcium Level 8.8 mg/dl Total Bilirubin 0.4 mg/dl Direct Bilirubin 0.1 mg/dl Aspartate Amino Transf (AST/SGOT) 20 U/L Alanine Aminotransferase (ALT/SGPT) 29 U/L Alkaline Phosphatase 51 U/L Total Creatine Kinase 106 U/L Creatine Kinase MB 1.7 ng/ml Creatine Kinase MB Ratio 1.6 Troponin I 0.040 ng/ml Total Protein 7.7 gm/dl Albumin 4.0 gm/dl Lipase 96 U/L Bedside D-Dimer > 450 ng/mlFEU Bedside Hemoglobin 15.3 g/dl Bedside Hematocrit 45 % Bedside Sodium 142 mEq/L Bedside Potassium 3.5 mEq/L Bedside Chloride 103 mEq/L Bedside Total CO2 28 mEq/l Bedside Blood Urea Nitrogen 27 mg/dl Bedside Creatinine 1.0 mg/dl Bedside Glucose (other) 185 mg/dl Bedside Ionized Calcium (Bassem) 1.14 mmol/l Estimated Average Glucose 114 mg/dl Hemoglobin A1c 5.6 % Test 05/30/17 00:56 05/30/17 05:41 05/30/17 07:34 Activated Partial Thromboplast Time 23.6 SECONDS 46.9 SECONDS Partial Thromboplastin Ratio 0.9 1.8 White Blood Count 8.08 K/uL Red Blood Count 4.61 M/uL Hemoglobin 14.8 g/dL Hematocrit 43.3 % Mean Corpuscular Volume 93.9 fL Mean Corpuscular Hemoglobin 32.1 pg Mean Corpuscular Hemoglobin Concent 34.2 g/dl Platelet Count 198 K/uL Mean Platelet Volume 10.0 fL Neutrophils (%) (Auto) 76.4 % Lymphocytes (%) (Auto) 11.5 % Monocytes (%) (Auto) 11.6 % Eosinophils (%) (Auto) 0.2 % Basophils (%) (Auto) 0.2 % Neutrophils # (Auto) 6.16 K/uL Lymphocytes # (Auto) 0.93 K/uL Monocytes # (Auto) 0.94 K/uL Eosinophils # (Auto) 0.02 K/uL Basophils # (Auto) 0.02 K/uL RDW Standard Deviation 44.5 fL RDW Coefficient of Variation 13.0 % Immature Granulocyte % (Auto) 0.1 % Immature Granulocyte # (Auto) 0.01 K/uL Troponin I 14.200 ng/ml Triglycerides Level 59 mg/dl Cholesterol Level 164 mg/dl HDL Cholesterol 73 mg/dl LDL Cholesterol, Calculated 79 mg/dl VLDL Cholesterol, Calculated 12 mg/dl Cholesterol/HDL Ratio 2.2 Hepatitis C Antibody Screen NEG CXR: No significant change compared to the prior study. No acute process. Advanced emphysema is again noted. Chest CTA: 1. No pulmonary emboli identified. 2. No acute intrathoracic findings. 3. Severe emphysema. 4. Linear right lower lobe opacity which favors atelectasis. 5. Indeterminate solid 6 mm left upper lobe nodule which is new since CT of October 22, 2007. Please follow according to the attached recommendations. EKG on arrival with sinus tachycardia at [address]-T wave abnormality. Repeat EKG this morning with no significant change. Telemetry reviewed: Sinus tachycardia in the low 100s. Echo 04/01/2017: Normal LV size and systolic function. EF 55-60 percent. No definite regional wall motion abnormalities. No LVH. Type 1 diastolic dysfunction. No significant valvular abnormalities. Technically difficult study. Assessment & Plan Patient is a 71-year-old male with a history of hypertension and COPD with former tobacco abuse who presented to the ED via EMS last evening in the setting of bilateral arm pain, chest discomfort, and nausea. His symptoms were alleviated with sublingual nitro and have gradually resolved. His troponin on arrival was normal but has guero to 14.2. EKG shows no acute ischemic changes, and the patient is currently asymptomatic. Given his cardiovascular risk factors , the concerning nature of his symptoms, and elevated troponin, recommend proceeding directly with cardiac catheterization for further evaluation of his coronary anatomy. The procedure will be scheduled for this afternoon. Will continue the heparin drip and increase his metoprolol tartrate to 50 mg BID for better heart rate control. Continue aspirin therapy. Further recommendations to follow pending the results of the catheterization. Thank you for allowing us to see this patient in consultation. The patient was seen and discussed with Dr. Watts, and the plan was made in collaboration with him. Dr. Bean will be performing the cardiac catheterization later today.
--- NOTE | 2017-05-30 12:32 | ECHOCARDIOGRAM REPORT ---
*NOTICE TO RECEIVING LIBERTARIAN AGENCY This information is strictly Confidential and protected under [place] law. [place] law prohibits you from making any further disclosure of this information unless further disclosure is expressly permitted by the written consent of the person to whom it pertains or is authorized by law. A general authorization for the release of medical or other information is not sufficient for this purpose. Hospital accepts no responsibility if the information is made available to any other person, INCLUDING THE PATIENT. Interpretation Summary * Name: SHANNAN ESPINOSA Study Date: 05/30/2017 06:54 AM BP: 120/88 mmHg * Patient Location: [facility]\S\N285\S\2 HR: 108 * : 1945 (M/d/yyyy) Gender: Male Height: 67 in * Age: 71 yrs Ethnicity: CA Weight: 208 lb * Ordering Physician: Donna Hyatt * Referring Physician: UNKNOWN * Performed By: Leatha Jang RCS * * Reason For Study: CHEST PAIN * BSA: 2.1 m2 * -- Conclusions -- * Left ventricular systolic function is normal. * Small area of severe hypokinesis/akinesis involving the mid distal inferior wall and adjacent inferoseptum. * Ejection Fraction = 50-55%. * Diastolic dysfunction, Grade II (pseudonormalization pattern). * No significant valvular pathology. Procedure Details * A complete two-dimensional transthoracic echocardiogram was performed (2D, M-mode, Doppler and color flow Doppler). * A contrast injection of Definity was performed to improve assessment of LV function. * Contrast was injected into an intravenous site in the right arm. * One vial of Definity ultrasound contrast was diluted in normal saline to a total volume of 10 ml. A total of '3' ml of solution was administered during imaging. * Lot # [id number] of Definity utilized for procedure. * Expiration date AUG 04. * The attending nurse who injected the contrast agent was JAC DIALLO, LINDA. Left Ventricle * The left ventricle is normal in size. * There is normal left ventricular wall thickness. * Left ventricular systolic function is normal. * Ejection Fraction = 50-55%. * Small area of severe hypokinesis/akinesis involving the mid distal inferior wall and adjacent inferoseptum. Right Ventricle * The right ventricular cavity size is normal (basal dimension <4.2 cm in right ventricular apical 4-chamber view). * The right ventricular systolic function is normal as assessed by tricuspid annular plane systolic excursion (TAPSE) (normal >1.5 cm). Atria * The left atrial size is normal. * Right atrial size is normal. * No ASD detected; PFO is not assessed. Mitral Valve * The mitral valve is normal in structure and function. * There is no mitral valve stenosis. * Significant mitral regurgitation is absent. Tricuspid Valve * The tricuspid valve anatomy is normal. * There is no tricuspid stenosis. * Significant tricuspid regurgitation is absent. Aortic Valve * The aortic valve is not well visualized. * The aortic valve opens well. * No hemodynamically significant valvular aortic stenosis. * There is no significant aortic regurgitation. Pulmonic Valve * The pulmonary valve is not well seen, but the Doppler examination is normal without significant regurgitation or stenosis. Great Vessels * The aortic root is normal size. * The pulmonary is not well visualized. Pericardium/Pleural * There is no pericardial effusion. Great Vessels * Normal inferior vena cava size and collapsability with sniff indicates a normal right atrial pressure of 3 mmHg Left Ventricular Diastolic Function * Diastolic dysfunction, Grade II (pseudonormalization pattern). MMode 2D Measurements and Calculations IVSd 1.3 cm IVSs 1.8 cm LVIDd 3.8 cm LVIDs 2.7 cm LVPWd 1.1 cm LVPWs 1.3 cm IVS/LVPW 1.2 FS 29.4 % EDV(Teich) 61.1 ml ESV(Teich) 26.2 ml EF(Teich) 57.1 % EDV(cubed) 53.9 ml ESV(cubed) 19.0 ml EF(cubed) 64.8 % % IVS thick 34.5 % % LVPW thick 21.9 % LV mass(C)d 147.7 grams LV mass(C)dI 71.8 grams/m\S\2 LV mass(C)s 139.1 grams LV mass(C)sI 67.7 grams/m\S\2 SV(Teich) 34.9 ml SI(Teich) 17.0 ml/m\S\2 SV(cubed) 34.9 ml SI(cubed) 17.0 ml/m\S\2 Ao root diam 3.8 cm Ao root area 11.2 cm\S\2 LA dimension 2.7 cm LA/Ao 0.73 LVOT diam 2.0 cm LVOT area 3.1 cm\S\2 LVAd ap4 36.3 cm\S\2 LVLd ap4 9.2 cm EDV(MOD-sp4) 118.4 ml EDV(sp4-el) 122.1 ml LVAs ap4 25.0 cm\S\2 LVLs ap4 7.6 cm ESV(MOD-sp4) 66.4 ml ESV(sp4-el) 69.5 ml EF(MOD-sp4) 43.9 % EF(sp4-el) 43.1 % LVAd ap2 33.7 cm\S\2 LVLd ap2 8.1 cm EDV(MOD-sp2) 116.4 ml EDV(sp2-el) 118.3 ml LVAs ap2 24.6 cm\S\2 LVLs ap2 7.7 cm ESV(MOD-sp2) 67.4 ml ESV(sp2-el) 66.3 ml EF(MOD-sp2) 42.1 % EF(sp2-el) 43.9 % LVLd %diff -12.70 % EDV(MOD-bp) 124.3 ml LVLs %diff 1.3 % ESV(MOD-bp) 66.4 ml EF(MOD-bp) 46.6 % SV(MOD-sp4) 52.0 ml SI(MOD-sp4) 25.3 ml/m\S\2 SV(MOD-sp2) 49.0 ml SI(MOD-sp2) 23.8 ml/m\S\2 SV(MOD-bp) 57.9 ml SI(MOD-bp) 28.2 ml/m\S\2 SV(sp4-el) 52.6 ml SI(sp4-el) 25.6 ml/m\S\2 SV(sp2-el) 52.0 ml SI(sp2-el) 25.3 ml/m\S\2 Doppler Measurements and Calculations MV E max kelly 118.1 cm/sec MV A max kelly 49.4 cm/sec MV E/A 2.4 MV P1/2t max kelly 119.8 cm/sec MV P1/2t 96.3 msec MVA(P1/2t) 2.3 cm\S\2 MV dec slope 364.6 cm/sec\S\2 MV dec time 0.12 sec Ao V2 max 117.7 cm/sec Ao max PG 5.5 mmHg Ao max PG (full) 3.6 mmHg TY(V,A) 1.8 cm\S\2 TY(V,D) 1.8 cm\S\2 LV V1 max PG 1.9 mmHg LV V1 max 69.5 cm/sec
[2017-05-30] MEDS ORDERED: NiCARDipine HCL INJ 2.5 MG/ML 10 ML AMP ONE (13:06)
[2017-05-30] MEDS ORDERED: HEPARIN SOD (PORCINE) 1000 UNIT/ML 10 ML VIAL ONE (13:06)
[2017-05-30] MEDS ORDERED: NITROGLYCERIN/D5W 100MCG/ML 20ML SYR ONE (13:07)
[2017-05-30] MEDS ORDERED: FENTANYL CITRATE INJ 50 MCG/1 ML 2 ML VIAL ONE (13:08)
[2017-05-30] MEDS ORDERED: MIDAZOLAM HCL 1 MG/ML 2ML VIAL ONE ×2 (13:08→13:12)
[2017-05-30] MEDS ORDERED: EPTIFIBATIDE 2 MG/ML 10 ML VIAL IV ONE ×2 (14:31→15:01)
[2017-05-30] MEDS ORDERED: TICAGRELOR 90 MG TAB PO ONE (15:13)
--- NOTE | 2017-05-30 15:26 | Procedure Note ---
Pre-Mod Sedation Assessment General Date of Moderate Sedation: May 30, 2017. Vital Signs: Vital Signs Past 12 Hours Date Time Temp Pulse Resp B/P (MAP) Pulse Ox O2 Delivery O2 Flow Rate FiO2 05/30/17 15:23 80 16 137/90 (106) 96 Room Air 05/30/17 15:08 81 16 146/99 (115) 96 Room Air 05/30/17 12:30 Room Air 05/30/17 11:49 36.7 92 18 126/88 (101) 96 Nasal Cannula 2.0 05/30/17 08:17 36.6 101 24 120/88 (99) 95 Nasal Cannula 2.0 05/30/17 07:45 Room Air 05/30/17 04:00 Nasal Cannula 2.0 05/30/17 04:00 36.8 96 18 137/98 (111) 98 Nasal Cannula 2.0 Review Cardiovascular: regular rate, rhythm, no edema Abdomen: normal bowel sounds, non tender Lungs: chest non-tender, lungs clear Airway Class: III Pre-Sedation Airway Assessment Oral Cavity: WNL Able to Visualize Vocal Cords: No Short Thick Neck: No Hx of Sleep Apnea: No Smoking Status: Former Smoker Mallampati Classification: Class III ASA Classification: Class III Procedure Planning Contraindications-for Mod Sed: None Yes Notes The planned sedation has been discussed with the patient and consent obtained. I have identified the patient, determined the appropriateness of sedation and have assessed the patient immediately prior to the procedure. All medicine(s) and interventions are by my order.
--- NOTE | 2017-05-30 15:29 | Procedure Note ---
Post-Mod Sedation Assessment General Date of Moderate Sedation May 30, 2017. Vital Signs: Vital Signs Past 12 Hours Date Time Temp Pulse Resp B/P (MAP) Pulse Ox O2 Delivery O2 Flow Rate FiO2 05/30/17 15:23 80 16 137/90 (106) 96 Room Air 05/30/17 15:08 81 16 146/99 (115) 96 Room Air 05/30/17 12:30 Room Air 05/30/17 11:49 36.7 92 18 126/88 (101) 96 Nasal Cannula 2.0 05/30/17 08:17 36.6 101 24 120/88 (99) 95 Nasal Cannula 2.0 05/30/17 07:45 Room Air 05/30/17 04:00 Nasal Cannula 2.0 05/30/17 04:00 36.8 96 18 137/98 (111) 98 Nasal Cannula 2.0 Review - Discharge Criteria Vital Signs Stable: Yes Alert/Oriented/Conversant: Yes Returned to Baseline Mental St: Yes Nausea Absent/Minimal: Yes Pain/Discomfort/Absent/Minimal: Yes Normal/Baseline Respirations: Yes Active Bleeding?: N/A Pt Received D/C Instructions: N/A Prescriptions Given: Transmitted Specific Proced. D/C Criteria Distal Pulses Present (Cardiac: Yes Groin site assessed-Card Cath: N/A Voided Prior To Discharge: N/A Discharged Patients Adult Escort/Transportation: Yes
--- NOTE | 2017-05-30 15:52 | Cardiac Catheterization ---
Procedure Note Procedure Date May 30, 2017. Pre-Procedure Diagnosis Non STEMI AUC Score 8 Post-Procedure Diagnosis Severe CAD, Successful PCI (d) Procedure(s) Performed Coronary Angiography, Left Heart Cath, Drug Eluting Stent, IVUS Certified Medical Technician Assistant Vikas Surveillance Camera Technician(s) Gina Estimated Blood Loss 15 Medication(s) Fentanyl, Heparin, Integrilin (IC x 1), Nitroglycerin, Versed, Lidocaine 1% Summary of Findings Indication: High-risk NSTEMI Access: 6Fr Right radial artery Catheters: Clinton; EBU 3.5 guide Findings: LM - Short, almost separate ostium; luminal irregularities LAD - Large vessel, early-mid 80% stenosis calcified with thrombus; distal luminal irregularities as wraps around apex. Circumflex - Large vessel, luminal irregularities; 20-30% proximal OM2. RCA - Dominant, moderate caliber, luminal irregularities. LVEDP - 6 -- PCI -- Antithrombotic therapy: Heparin, Ticagrelor Procedure: LM cannulated with EBU 3.5 guides Prowater wire passed across lesion into distal vessel IVUS revealed 80-90% disease, heavily calcified at take-off of diagonal, thrombus present. Mid LAD lesion predilated with 3.0 compliant balloon Eventually able to deliver stent distally with aid of a guideliner Dilated lesion stented with 2 stents - distal 3.5 x 30 Diamond, more proximal 4.5 x 18 Kory IVUS showed well-apposed stent, underexpanded in the mid segment Stents post-dilated with 4.5 noncompliant balloon to high atmospheres IC vasodilators administered for spasm Post procedure BERE 3 flow, stent well expanded with minimal residual stenosis and no apparent cardiac complications. Arterial Closure: TR Band Summary: 1. Severe single vessel coronary artery disease - 80% early-mid stenosis 2. Normal intracardiac filling pressure 3. Successful PCI of proximal to mid LAD with 2 overlapping ARIEL (4.5 x 18, 3.5 x 30 Diamond - post-dilated with 4.5 NC balloon). Recommendations: To PCU for continued monitoring Loaded with Ticagrelor 180mg Continue dual-antiplatelet therapy with ASA/Ticagrelor for 1 year Continue statin, antihypertensives, and ASCVD risk factor modification Consult cardiac Rehab Hemodynamics Rest Ao: 129/89/107 Final Ao: 129/83/103 LV: 104/6 Recommendations PCI without planned CABG Specimens None Radiation Exposure (mGy) 4105 Contrast (mls) 170 Fluids (cc crystalloids) 146 Drains None Anesthesia Moderate Procedural Complication(s) None Disposition PCU ACC Data Cardiac Status Clinical evaluation leading to the procedure CAD Presntation: Non STEMI Anginal Classification: CCS IV Heart Failure: No, NYHA Class: CCS I Cardiogenic Shock w/in 24Hrs: No Cardiac Arrest w/in 24Hrs: No Imaging studies past 6 months: Yes Stress studies past 6 months: No Closure Device Percutaneous Entry Location: Radial Closure Device: Radial Band Recommendations: PCI without planned CABG PCI Indication: PCI for high risk Non-STEMI Lesion Segment Name: Mid LAD Culprit Artery: Yes Stenosis Prior to Rx (%): 80-90 Chronic Total Occlusion: No IVUS: Yes FFR: No Pre-Procedure BERE Flow: 3 Previously Treated Lesion: No Lesion Complexity: High/C Lesion Length (mm): 35 Thrombus Present: Yes Bifurcation Lesion: Yes Guidewire Across Lesion: Yes Guidewire: Stenosis Post-Procedure (%): 0 Post-Procedure BERE Flow: 3 Device(s) Deployed: Yes Intraprocedure Events Significant Dissection: No Perforation: No
[2017-05-30] MEDS: ALUMINUM/MAGNESIUM/SIMETH (MAALOX MAX) 30 ML UDC PO PRN (16:58)
[2017-05-30] MEDS: NITROGLYCERIN 0.4 MG SL PER TAB CHARGE SL PRN ×2 (17:24→17:53)
[2017-05-30] MEDS: METOPROLOL TARTRATE 50 MG TAB PO SCH (21:05)
[2017-05-30] MEDS: MONTELUKAST SOD 10 MG TAB PO SCH (21:05)
[2017-05-31 04:04] VITALS: BP 128/82; PULSE 92; TEMP 36.7; O2SAT 96
[2017-05-31 07:41] VITALS: BP 137/92; PULSE 93; TEMP 36.7; O2SAT 96
[2017-05-31 07:51] LABS: HEMATOCRIT 40.6 % (42-52); MEAN CORPUSCULAR HEMOGLOBIN 32.6 pg (25-34); MEAN CORPUSCULAR HGB CONC 34.7 g/dl (32-36); MEAN PLATELET VOLUME 9.8 fL (7.4-10.4); PLATELET COUNT 189 K/uL (130-400); RED BLOOD COUNT 4.32 M/uL (4.7-6.1); WHITE BLOOD COUNT 10.01 K/uL (4.8-10.8)
[2017-05-31] MEDS: ANORO ELLIPTA~ORDER AWAITING ACTION SCH ×3 (08:00→19:27)
[2017-05-31 08:31] LABS: BUN/CREATININE RATIO 22.2 (10-20); CALCIUM 8.4 mg/dl (8.5-10.1); CREATININE 0.8 mg/dl (0.60-1.40); POTASSIUM 3.5 mmol/L (3.5-5.1)
[2017-05-31] MEDS: METOPROLOL TARTRATE 50 MG TAB PO SCH ×2 (08:56→19:44)
[2017-05-31] MEDS: CETIRIZINE HCL 10 MG TAB PO SCH (08:56)
[2017-05-31] MEDS: MULTIVITAMIN TAB PO SCH (08:56)
[2017-05-31] MEDS: TICAGRELOR 90 MG TAB PO SCH ×2 (08:57→19:44)
[2017-05-31] MEDS: ASPIRIN 81 MG ECTAB PO SCH (08:57)
[2017-05-31] MEDS: ATORVASTATIN 40 MG TAB PO SCH (08:58)
[2017-05-31] MEDS ORDERED: ATORVASTATIN 40 MG TAB PO SCH (09:00)
[2017-05-31 11:05] VITALS: BP 105/72; PULSE 79; TEMP 36.6; O2SAT 97
[2017-05-31] MEDS: ALUMINUM/MAGNESIUM/SIMETH (MAALOX MAX) 30 ML UDC PO PRN (12:09)
[2017-05-31] MEDS ORDERED: CALCIUM CARBONATE 500 MG CHEWABLE PO PRN (12:15)
--- NOTE | 2017-05-31 12:50 | Family Medicine Progress Note ---
Progress Note Date of Service May 31, 2017. Subjective Pt evaluation today including: conversation w/ patient, physical exam, chart review, lab review, review of studies Pain: 0/10 PO Intake: WNL however feels slightly decreased appetite secondary to bloating Voiding: no voiding problems Patient had an episode of chest pain last night similar to the pain he had on admission but not as intense. Relieved with NTG and no significant EKG changes. States that yesterday he felt more SOB with any ambulation however this had improved today anticipating d/c home tomorrow Constitutional: No fever Eyes: No worsening of vision ENT: No hearing loss Respiratory: + dyspnea on exertion, No cough, No sputum, No wheezing, No shortness of breath Cardiovascular: No chest pain Abdomen: + problem reported (bloating), No pain, No nausea, No vomiting, No diarrhea, No constipation Male : No dysuria, No hematuria Neurologic: No weakness, No balance problems Psychiatric: No depression symptoms Heme: No abnormal bleeding/bruising Endo: + fatigue Skin: No rash Medications Medications Administered Medications (Trade) Dose Ordered Sig/Bora Route Start Time Stop Time Status Last Admin Dose Admin Nitroglycerin (Nitroglycerin 2% Oint) 1 inch NOW STAT EXT 05/29/17 21:44 05/29/17 21:45 DC 05/29/17 21:51 1 INCH Al Hydrox/Mg Hydrox/Simethicone (Maalox Max Susp) 15 ml Q4H PRN PO 05/30/17 00:30 06/29/17 00:29 05/31/17 12:09 15 ML Ondansetron HCl (Zofran Inj) 4 mg Q6H PRN IV 05/30/17 00:30 06/29/17 00:29 05/30/17 17:06 4 MG Nitroglycerin (Nitrostat Tab) 0.4 mg UD PRN SL 05/30/17 00:30 06/29/17 00:29 05/30/17 17:53 0.4 MG Aspirin (Ecotrin Tab) 81 mg QAM PO 05/30/17 09:00 06/29/17 08:59 05/31/17 08:57 81 MG Cetirizine HCl (zyrTEC TAB) 10 mg QAM PO 05/30/17 09:00 06/29/17 08:59 05/31/17 08:56 10 MG Montelukast Sodium (Singulair Tab) 10 mg QPM PO 05/30/17 21:00 06/29/17 20:59 05/30/17 21:05 10 MG Multivitamins (Multivitamin Tab) 1 tab QAM PO 05/30/17 09:00 06/29/17 08:59 05/31/17 08:56 1 TAB Miscellaneous Information (Order Awaiting Action) 1 ea QS N/A 05/30/17 08:00 06/29/17 07:59 05/30/17 18:47 1 EA Heparin Sodium/ Dextrose 500 ml @ 27 mls/hr [id number] PRN IV 05/30/17 01:45 05/31/17 11:06 DC 05/30/17 01:44 27 MLS/HR Metoprolol Tartrate (Lopressor Tab) 25 mg BID PO 05/30/17 09:00 05/30/17 09:32 DC 05/30/17 08:49 25 MG Metoprolol Tartrate (Lopressor Tab) 25 mg 0203 ONCE PO 05/30/17 02:03 05/30/17 02:06 DC 05/30/17 02:25 25 MG Perflutren Lipid Microsphere (Definity) 2 ml ONE ONCE IV 05/30/17 07:26 05/30/17 07:27 DC 05/30/17 07:26 2 ML Metoprolol Tartrate (Lopressor Tab) 25 mg QAM ONCE PO 05/30/17 09:45 05/30/17 10:09 DC 05/30/17 10:28 25 MG Metoprolol Tartrate (Lopressor Tab) 50 mg BID PO 05/30/17 21:00 06/29/17 20:59 05/31/17 08:56 50 MG Heparin Sodium (Porcine) (Heparin Iv Bolus) 10,000 unit STK-MED ONCE .ROUTE 05/30/17 13:06 05/30/17 13:07 DC 05/30/17 13:06 8,000 UNIT Midazolam HCl (Versed Inj) 2 mg STK-MED ONCE .ROUTE 05/30/17 13:08 05/30/17 13:09 DC 05/30/17 13:08 2 MG Fentanyl Citrate (Fentanyl Inj) 100 mcg STK-MED ONCE .ROUTE 05/30/17 13:08 05/30/17 13:09 DC 05/30/17 13:08 100 MCG Ticagrelor (Brilinta Tab) 180 mg STK-MED ONCE PO 05/30/17 15:13 05/30/17 15:14 DC 05/30/17 15:13 180 MG Ticagrelor (Brilinta Tab) 90 mg BID PO 05/31/17 09:00 06/30/17 08:59 05/31/17 08:57 90 MG Atorvastatin Calcium (Lipitor Tab) 80 mg QAM PO 05/31/17 09:00 06/30/17 08:59 05/31/17 08:58 80 MG Objective Vital Signs Date Time Temp Pulse Resp B/P (MAP) Pulse Ox O2 Delivery O2 Flow Rate FiO2 05/31/17 12:23 Room Air 05/31/17 11:05 36.6 79 20 105/72 (83) 97 2.0 05/31/17 08:00 Room Air 05/31/17 07:41 36.7 93 18 137/92 (107) 96 Room Air 05/31/17 04:12 Room Air 05/31/17 04:04 36.7 92 17 128/82 (97) 96 Room Air 05/31/17 00:34 Room Air 05/30/17 23:37 36.9 88 19 150/105 (120) 96 Room Air 05/30/17 20:45 Room Air 05/30/17 18:49 36.7 94 20 140/92 (108) 97 Nasal Cannula 2.0 05/30/17 17:45 91 18 115/82 (93) 97 Nasal Cannula 2.0 05/30/17 17:15 93 18 137/92 (107) 95 Nasal Cannula 2.0 05/30/17 16:45 90 20 146/94 (111) 96 Nasal Cannula 2.0 05/30/17 16:30 97 20 149/100 (116) 96 Nasal Cannula 2.0 05/30/17 16:15 94 18 138/93 (108) 93 05/30/17 16:00 36.5 82 18 148/103 (118) 91 Room Air 05/30/17 16:00 Room Air 05/30/17 15:23 80 16 137/90 (106) 96 Room Air 05/30/17 15:08 81 16 146/99 (115) 96 Room Air Physical Exam General Appearance: no apparent distress Eyes: normal inspection ENT: normal ENT inspection Neck: supple Respiratory/Chest: normal breath sounds, no respiratory distress, no accessory muscle use, + decreased breath sounds (bilat bases) Cardiovascular: regular rate, rhythm, no murmur Abdomen: normal bowel sounds, non tender, soft Extremities: non-tender, normal inspection, no calf tenderness, + pedal edema ( +1 bilat and unchanged from BL) Neurologic/Psychiatric: alert, normal mood/affect, oriented x 3 Skin: normal color, warm/dry, no rash Lymphatic: no adenopathy Laboratory Results Results Past 24 Hours Test 05/30/17 14:11 05/30/17 14:29 05/30/17 20:37 05/31/17 07:11 Range/Units Kaolin Activated Coagulation Time 98 252 94-140 SECONDS Troponin I 18.300 0-0.045 ng/ml White Blood Count 10.01 4.8-10.8 K/uL Red Blood Count 4.32 4.7-6.1 M/uL Hemoglobin 14.1 14.0-18.0 g/dL Hematocrit 40.6 42-52 % Mean Corpuscular Volume 94.0 80-100 fL Mean Corpuscular Hemoglobin 32.6 25-34 pg Mean Corpuscular Hemoglobin Concent 34.7 32-36 g/dl RDW Standard Deviation 44.4 36.4-46.3 fL RDW Coefficient of Variation 12.8 11.5-14.5 % Platelet Count 189 130-400 K/uL Mean Platelet Volume 9.8 7.4-10.4 fL Activated Partial Thromboplast Time 25.8 21.0-31.0 SECONDS Partial Thromboplastin Ratio 1.0 Sodium Level 140 136-145 mmol/L Potassium Level 3.5 3.5-5.1 mmol/L Chloride Level 106 98-107 mmol/L Carbon Dioxide Level 27 21-32 mmol/L Anion Gap 8.0 3-11 mmol/L Blood Urea Nitrogen 18 7-18 mg/dl Creatinine 0.80 0.60-1.40 mg/dl Est Creatinine Clear Calc Drug Dose 93.9 ml/min Estimated GFR () 105.6 Estimated GFR (Non- 91.1 BUN/Creatinine Ratio 22.2 10-20 Random Glucose 105 70-99 mg/dl Calcium Level 8.4 8.5-10.1 mg/dl Assessment and Plan This is a 71 yo m with a history of HTN and COPD that originally presented to us with bilat arm pain and substernal chest pain. Patient was placed on heparin drip and troponin was trended. He was found to have elevated troponin reflective of a NSTEMI. Patient was brought to the hospital laboratory technician and was revascularized in the proximal to mid LAD. Patient has had one episode of chest pain relieved with NTG since the PCI. Chest pain secondary to NSTEMI - s/p mid LAD ARIEL placement - restart Losartan - continue b richard - initiate 80 mg of atorvastatin - continue ASA and Ticagrelor - plan for [facility] on d/c COPD - albuterol prn, singular 10 mg - Ellipta can be restarted as patient is clinically stable HTN -- Holding HCTZ - restarted losartan - plan to decrease dose of lopressor if with addition of Losartan patient is hypotensive DVT Prophylaxis heparin bid, scd, encouraged to ambulate Continued [facility] stay due to: other Discharge planning: uncertain Reviewed: Pt Seen/Exam by Me History no chest pain, shortness of breath. Constitutional: denies: fever Respiratory: negative: short of breath Cardiovascular: denies chest pain Gastrointestinal/Abdominal: negative: abdominal pain General Appearance: no apparent distress Respiratory: lungs clear, no respiratory distress Cardiovascular: regular rate, rhythm Gastrointestinal: soft Neurologic/Psychiatric: alert, oriented x 3 Skin Characteristics: warm/dry Assessment/Plan Resident Physician Supervision Note: I independently interviewed and examined the patient and verified the gonzales history and physical, reviewed labs and image studies, discussed the case with the resident Dr. Hyatt and agree with the findings and care plan.
--- NOTE | 2017-05-31 13:19 | CARDIOLOGY PROGRESS NOTE ---
DATE: 05/31/2017 TIME: 12:19 p.m. SUBJECTIVE: I have been seeing Mr. Kent for Dr. Watts. He had some arm discomfort last evening and was evaluated by Dr. Bean. He was given nitroglycerin, but states that this sensation persisted for some time, a few hours before subsiding around 9:00 p.m. This has since subsided and has not returned. He has not had any recurrent chest pain/angina. He had some mild dyspnea last night while walking around his room but today, he states that he feels great other than some abdominal bloating. He has been getting abdominal bloating with eating prior to the hospitalization and has had some this morning following breakfast. He is requesting some medication for this, which nursing staff is obtaining for him. The primary service was also notified. He denies melena, hematochezia, hematuria, or other bleeding. He denies syncope, near syncope, orthopnea. He did not notice any dyspnea with exertion this morning. He continues to wear oxygen and does wear oxygen at home at night. PHYSICAL EXAMINATION: VITAL SIGNS: Temperature 36.6 degrees, heart rate 79 beats per minute, respiration rate 20, blood pressure 105/72 mmHg, oxygen saturation 96% on room air and currently 97% on 2 liters per nasal cannula. Weight is 91.2 kg. GENERAL: In no acute distress, alert and oriented. NECK: No JVD. CARDIAC EXAM: No ventricular heave. Regular, normal S1, S2. No murmurs, rubs, or gallops. LUNGS: Decreased breath sounds throughout, but otherwise clear. ABDOMEN: Soft, nontender, nondistended. Normoactive bowel sounds. EXTREMITIES: Trace to 1+ bilateral pedal edema, which he states is chronic. No cyanosis. Right radial catheter site is ecchymotic. There is no discharge. No erythema. 2+ right radial pulses. PSYCHIATRIC: Affect is appropriate. MEDICATIONS: Include aspirin 81 mg daily, ticagrelor 90 mg p.o. b.i.d., metoprolol tartrate 50 mg p.o. b.i.d., atorvastatin 80 mg daily. Telemetry personally reviewed. No arrhythmia. Sinus rhythm. ECG on 05/30/2017 at 17:12 personally reviewed. Sinus rhythm at 97 beats per minute. Cardiac catheterization report reviewed. Early mid LAD 80% calcified stenosis with thrombus. Proximal OM2 20%-30%. He underwent PCI with 2 overlapping drug-eluting stents 4.5 x 18 mm and 3.5 x 13 mm stents post-dilated with a 4.5 noncompliant balloon. This was used by Dr. Bean. Echocardiogram report from 05/30/2017 reviewed. EF 50%-55%. Severe hypokinesis to akinesis involving the mid distal inferior wall and adjacent inferoseptum. Type 2 diastolic dysfunction. No significant valvular abnormalities. LABORATORY DATA: White blood cell count is 10, hemoglobin 14.1, platelets 189. Sodium 140, potassium 3.5, BUN 18, creatinine 0.8, peak troponin was 18.4. LDL 79, HDL 73, total cholesterol 164, triglycerides 59. ASSESSMENT AND PLAN: 1. Non-ST elevation myocardial infarction, status post mid left anterior descending percutaneous coronary intervention x2. No further angina. Continue dual antiplatelet therapy. Aspirin 81 mg daily indefinitely. Ticagrelor for at least 1 year. Continue high intensity statin therapy. Continue beta richard. Cardiac rehabilitation recommended after discharge. Close followup in the outpatient setting. Nitroglycerin p.r.n. upon discharge for angina. 2. Coronary artery disease: Continue medical therapy as outlined above. No angina today. Encourage ambulation. Continue telemetry. 3. Hypertension: Blood pressure adequately controlled this morning. Given his history of chronic edema, we would consider restarting HCTZ if blood pressure will allow. Beta richard therapy was instituted and increased last night for better heart rate control. No further changes made at this time. 4. Abdominal bloating: As per primary service. 5. Disposition: Cardiology will continue to follow. From a cardiac standpoint, he can likely be discharged tomorrow morning as long as there are no significant events today or overnight. Close followup will then be recommended with Dr. Watts in the outpatient setting. The patient's care has been discussed with Dr. Hyatt of the primary hospitalist service. Heparin drip was discontinued.
[2017-05-31 13:44] LABS: PROTHROMBIN TIME (PATIENT) 10.5 SECONDS (9.0-12.0)
[2017-05-31] MEDS ORDERED: BRL90 PO (13:54)
[2017-05-31] MEDS ORDERED: NTRSLP4 SL (13:54)
[2017-05-31] MEDS ORDERED: METO50TA16 PO (13:54)
[2017-05-31 15:43] VITALS: BP 142/88; PULSE 95; TEMP 36.7; O2SAT 93
[2017-05-31 19:23] VITALS: BP 137/94; PULSE 104; TEMP 37.3; O2SAT 96
[2017-05-31] MEDS: MONTELUKAST SOD 10 MG TAB PO SCH (19:44)
[2017-05-31] MEDS ORDERED: HEPARIN SOD 5000 UNIT/0.5 ML CARP SQ SCH (21:00)
[2017-06-01 00:52] VITALS: BP 144/94; PULSE 96; TEMP 37.3; O2SAT 96
[2017-06-01 03:50] VITALS: BP 129/86; PULSE 95; TEMP 36.4; O2SAT 96
--- NOTE | 2017-06-01 06:13 | Consultant Recommendations ---
Claim Rep Recommendations Date of Service Jun 01, 2017. Claim Rep Recommendations ACTIVITY RECOMMENDATIONS: Excess manipulation of the wrist should be avoided for the next 24-48 hours. * No lifting over 2 pounds (approximately a 1/2 gallon of milk) with the utilized arm for 24 hours. * No strenuous activity such as bowling or tennis for 3 days. * Keep the site of the procedure covered with a bandage for 24 hours. *You may shower the day after the procedure. Do not take a tub bath or submerge the puncture site in water for the next 3 days. *Do not operate any motorized equipment for 3 days. SPECIAL CARE INSTRUCTIONS: The site may be slightly bruised and sore following your procedure. Should any of the following occur, contact the Dr. who performed your procedure. 1. Redness/inflammation, swelling, chills, or fever, or colored drainage at procedure site within 3-7 days after your procedure. 2. Coldness, discoloration, ongoing numbness, severe pain, or swelling. Expect mild tingling of hand and tenderness at the puncture site for up to three days. If this persists beyond three days, or other symptoms develop, notify the Dr. who performed your procedure. BLEEDING: If the procedure site on your wrist begins to bleed, do not panic 1. Place 1 or 2 fingers firmly just slightly above the insertion site to stop the bleeding. You may be able to feel your pulse as you hold pressure. 2. Lift your finger after 5 minutes to see if the bleeding has stopped. 3. Once the bleeding has stopped, gently wipe the wrist area clean with a bandage. * If the bleeding from your wrist does not stop after 10 minutes, or if there is a large amount of bleeding or spurting, call 911 (do not drive yourself to the hospital). SKIN IRRITATION: * You may experience some redness and/or swelling in the area where radiation was administered. If any skin irritation occurs, please contact your family physician. FOLLOW UP VISIT: Keep any scheduled doctor appointments.
[2017-06-01 07:11] LABS: BUN/CREATININE RATIO 24.7 (10-20); CREATININE 0.86 mg/dl (0.60-1.40); POTASSIUM 3.4 mmol/L (3.5-5.1)
--- NOTE | 2017-06-01 07:13 | Discharge Instructions ---
Discharge Instructions Date of Service Jun 01, 2017. Admission Reason for Admission: Chest Pain Of Uncertain Etiology Discharge Discharge Diagnosis / Problem: NTEMI ( heart attack) Discharge Goals Goal(s): Diagnostic testing, Therapeutic intervention Activity Recommendations Activity Limitations: per Instructions/Follow-up section Exercise/Sports Limitations: as tolerated, gradually increase as tolerated May Resume Sexual Activity: when tolerated Shower/Bathe: no limitations Driving or Machine Use: no limitations . Instructions / Follow-Up Instructions / Follow-Up You were admitted to the hospital for the evaluation of chest pain and bilat arm pain. You were evaluated and findings reflected that you were suffering from a heart attack. You were promptly brought to the attention of the wildlife refuge specialist and brought to the label fuser tender were you had two stents placed in your left anterior descending artery in your heart. You will be going home with some new medications. 1. Ticagrelor- this is an antiplatelet drug that you will use for a minimum of one year in order to help restenosis( re blockage) of the arteries 2. Continue the aspirin 81 mg along with the Ticagrelor ( Brilinta) 3. Metoprolol- please continue this medication as this medication helps not only with blood pressure control but also with your overall health after a heart attack. 4. Continue your losartan 5. HCTZ - as we have added a new blood pressure medication please hold this medication for now and when you follow up with wildlife refuge specialist can discuss the need for this medication as a diuretic and if your blood pressure can handle adding this medication 6. nitroglycerin- this medication can be used when you develop chest pain/ angina. Please use when you develop chest pain and it can be used a second time if no or some improvement after 5 minutes 7. Atorvastatin has been increased to 80 mg The shortness of breath you are experiencing is secondary to the heart attack. The oxygenation test we had completed did not show a significant drop in your oxygen level. After a heart attack low and slow is a good way to look at activity. A follow up with Cardiac rehab will be arranged and they will work on getting you working on increasing your activity level in a way that you do not over work your heart. If you notice significant worsening in your shortness of breath or increased swelling in your lower extremities please contact your PCP or wildlife refuge specialist to be reassessed. We wish you cruz mccurdy Current Hospital Diet Patient's current hospital diet: AHA Diet (Heart Healthy), Low Sodium Diet (2gm Na) Discharge Diet Recommended Diet: AHA Diet (Heart Healthy), Low Sodium Diet (2gm Na) Procedures Procedures Performed: PCI- stent x2 in LAD Pending Studies Studies pending at discharge: no Laboratory Results Hemoglobin A1c Test 05/30/17 00:25 Range/Units Estimated Average Glucose 114 mg/dl Hemoglobin A1c 5.6 4.5-5.6 % Lipid Panel Test 05/30/17 05:41 Range/Units Triglycerides Level 59 0-150 mg/dl Cholesterol Level 164 0-200 mg/dl HDL Cholesterol 73 mg/dl Cholesterol/HDL Ratio 2.2 LDL Cholesterol, Calculated 79 mg/dl Medical Emergencies . Who to Call and When: Medical Emergencies: If at any time you feel your situation is an emergency, please call 911 immediately. . Non-Emergent Contact Non-Emergency issues call your: Primary Care Provider, Bobbin Coil Winder Call Non-Emergent contact if: your pain is not controlled, your pain is worsening, your pain is unusual for you, your pain is concerning you . . "Provider Documentation" section prepared by Donna Mccurdy. . Machine Maintenance Technician Recommendations Machine Maintenance Technician Recommendations: ACTIVITY RECOMMENDATIONS: Excess manipulation of the wrist should be avoided for the next 24-48 hours. * No lifting over 2 pounds (approximately a 1/2 gallon of milk) with the utilized arm for 24 hours. * No strenuous activity such as bowling or tennis for 3 days. * Keep the site of the procedure covered with a bandage for 24 hours. *You may shower the day after the procedure. Do not take a tub bath or submerge the puncture site in water for the next 3 days. *Do not operate any motorized equipment for 3 days. SPECIAL CARE INSTRUCTIONS: The site may be slightly bruised and sore following your procedure. Should any of the following occur, contact the Dr. who performed your procedure. 1. Redness/inflammation, swelling, chills, or fever, or colored drainage at procedure site within 3-7 days after your procedure. 2. Coldness, discoloration, ongoing numbness, severe pain, or swelling. Expect mild tingling of hand and tenderness at the puncture site for up to three days. If this persists beyond three days, or other symptoms develop, notify the Dr. who performed your procedure. BLEEDING: If the procedure site on your wrist begins to bleed, do not panic 1. Place 1 or 2 fingers firmly just slightly above the insertion site to stop the bleeding. You may be able to feel your pulse as you hold pressure. 2. Lift your finger after 5 minutes to see if the bleeding has stopped. 3. Once the bleeding has stopped, gently wipe the wrist area clean with a bandage. * If the bleeding from your wrist does not stop after 10 minutes, or if there is a large amount of bleeding or spurting, call 911 (do not drive yourself to the hospital). SKIN IRRITATION: * You may experience some redness and/or swelling in the area where radiation was administered. If any skin irritation occurs, please contact your family physician. FOLLOW UP VISIT: Keep any scheduled doctor appointments. VTE Core Measure Inpt VTE Proph given/why not?: Other Anticoagulation, SCD's
[2017-06-01 07:38] VITALS: BP 125/89; PULSE 96; TEMP 37.2; O2SAT 95
[2017-06-01] MEDS: ANORO ELLIPTA~ORDER AWAITING ACTION SCH (08:00)
[2017-06-01 08:07] VITALS: BP 125/89; PULSE 96; TEMP 37.2; O2SAT 95
[2017-06-01] MEDS: TICAGRELOR 90 MG TAB PO SCH (08:27)
[2017-06-01] MEDS: MULTIVITAMIN TAB PO SCH (08:27)
[2017-06-01] MEDS: METOPROLOL TARTRATE 50 MG TAB PO SCH (08:27)
[2017-06-01] MEDS: ATORVASTATIN 40 MG TAB PO SCH (08:28)
[2017-06-01] MEDS: CETIRIZINE HCL 10 MG TAB PO SCH (08:28)
[2017-06-01] MEDS: ASPIRIN 81 MG ECTAB PO SCH (08:28)
[2017-06-01] MEDS ORDERED: NURSING VERBAL MED ORDER ONE ×2 (08:30→08:45)
[2017-06-01] MEDS ORDERED: SIMETHICONE 80 MG CHEW PO ONE (08:45)
[2017-06-01] MEDS ORDERED: SIMETHICONE 80 MG CHEW PO PRN (08:45)
[2017-06-01] MEDS ORDERED: METO100T14 PO (08:56)
[2017-06-01] MEDS ORDERED: LOSARTAN POTASSIUM 25 MG TAB PO SCH (09:00)
[2017-06-01] MEDS ORDERED: POTASSIUM CHLORIDE 20 MEQ TABCR PO ONE (09:00)
--- NOTE | 2017-06-01 09:19 | CARDIOLOGY PROGRESS NOTE ---
DATE: 06/01/2017 TIME: 08:59 a.m. SUBJECTIVE: Yesterday, he stated that he had no difficulty breathing, but today, he states that yesterday he was 50% of what he normally is. Today, he has improved and feels that he is improving on a daily basis. He did have some mild dyspnea while walking to the restroom to brush his teeth and shave. He does have severe emphysema. He denies orthopnea, syncope, near syncope, palpitations, angina, chest pain or bleeding such as melena, hematochezia or hematuria. OBJECTIVE: VITAL SIGNS: Temperature 37.2 degrees, heart rate 96 beats per minute, respiratory rate 18, blood pressure 125/89 mmHg, and oxygen saturation 95% on 2 liters nasal cannula. Weight 92 kg. GENERAL: No acute distress. He is alert. NECK: No JVD. CARDIAC EXAM: No ventricular heave. Regular, normal S1 and S2, but overall distant heart sounds. No audible murmurs, rubs or gallops. LUNGS: Decreased breath sounds throughout, but otherwise clear. ABDOMEN: Soft, nontender, and nondistended. Normoactive bowel sounds. EXTREMITIES: Trace to 1+ bilateral lower extremity edema. No cyanosis. Right radial catheterization site is ecchymotic, but without erythema or discharge. 2+ right radial pulse. PSYCHIATRIC: Affect appears appropriate. MEDICATIONS: Include aspirin 81 mg daily, ticagrelor 90 mg p.o. b.i.d., atorvastatin 80 mg daily, losartan 25 mg daily, metoprolol tartrate 50 mg p.o. b.i.d., Singulair 10 mg daily, and simethicone 80 mg as needed. Telemetry personally reviewed. Sinus rhythm, but at times he is mildly tachycardic. LABORATORY DATA: Sodium 139, potassium 3.4, BUN 21, and creatinine 0.86. ASSESSMENT AND PLAN: 1. Non-ST elevation myocardial infarction: He has not had any further angina. Continue dual antiplatelet therapy. Aspirin 81 mg daily indefinitely. Ticagrelor 90 mg p.o. b.i.d. as tolerated for at least 1 year. He has been supplied with samples. Continue high intensity statin therapy. Continue beta richard. Recommend titrating metoprolol to 100 mg twice daily given elevated heart rates. Cardiac rehabilitation is recommended. 2. Coronary artery disease: Status post LAD PCI x2. Continue antiplatelet therapy as noted. Continue beta richard and high intensity statin therapy. 3. Hypertension: Blood pressure is adequately controlled. Continue current regimen. If his edema worsens, could consider restarting HCTZ if blood pressure allows. Titrating beta richard as noted above. 4. Dyspnea with exertion: He appears to euvolemic on exam. He does have severe emphysema. Symptoms are improving on a daily basis. No further cardiac evaluation recommended at this time. 5. Disposition: Close followup in the outpatient setting with cardiology. Dr. Watts's office will contact him in the next 1-2 days to set up an appointment within the 1-2 weeks. He was asked to call for any questions or concerns. The patient's care has been discussed with Dr. Hyatt of the primary hospitalist service.
--- NOTE | 2017-06-01 09:27 | Discharge Summary ---
Discharge Summary Date of Service Jun 01, 2017. Discharge Summary Admission Date: May 30, 2017 at 00:22 Discharge Date: Jun 01, 2017 Discharge Disposition: Home Principal Diagnosis: NSTEMI Problems/Secondary Diagnoses: COPD- severe HTN LE edema Immunizations: Have You Had Influenza Vaccine: Yes Influenza Vaccine Date: Apr 06, 2007 History of Tetanus Vaccine?: Yes Tetanus Immunization Date: Apr 06, 1999 History of Pneumococcal: Yes Pneumococcal Date: Aug 14, 2007 History of Hepatitis B Vaccine: No Procedures: PCI with x 2 stent of LAD Consultations: Dr Bean - PCI Dr Ashraf - [facility] Medication Reconciliation New Medications: Metoprolol Tartrate (Lopressor) (Lopressor) 100 Mg Tab 1 TAB PO BID for 30 Days, #60 TAB 5 Refills Atorvastatin (Atorvastatin Calcium) 40 Mg Tab 80 MG PO QAM for 30 Days, #60 TAB Metoprolol Tartrate (Lopressor) (Lopressor) 50 Mg Tab 50 MG PO BID for 30 Days, #60 TAB Nitroglycerin (Nitrostat) 0.4 Mg/1 Tab Subl 0.4 MG SL UD PRN for Chest Pain for 30 Days, #30 TAB to be used if you develop chest pain Ticagrelor (Brilinta) 90 Mg Tab 90 MG PO BID for 30 Days, #60 TAB Continued Medications: Albuterol Hfa (Ventolin Hfa) 200 Puffs/86320 Mcg Aers 2 PUFFS INH Q4H PRN for SOB/Wheezing/Cough Aspirin (Aspirin Ec) 81 Mg Tab 81 MG PO QAM Azithromycin (Zithromax Z-Marko) 250 Mg Tab 1 PKT PO UD PRN for COPD Rescue Kit for 5 Days, #6 TAB TAKE 2 TABLETS DAY 1 THEN 1 TABLET DAILY UNTIL GONE Cetirizine (Zyrtec) 10 Mg Tab 10 MG PO QAM Echinacea (Echinacea) Unknown Strength Cap 3 CAP PO QAM Home O2 Therapy (Oxygen) Gas 2 LITERS NA HS Losartan Potassium (Cozaar) 25 Mg Tab 25 MG PO QAM, TAB Montelukast Sodium (Singulair) 10 Mg Tab 10 MG PO QPM, TAB Multivitamin (Multivitamin) Tab 1 TAB PO QAM Prednisone Tab (Prednisone) 10 Mg Tab 10 MG PO UD PRN for COPD Rescue Kit, TAB RESCUE KIT FOLLOWS: TAKE 5 TABLETS (50 MG) DAILY FOR 2 DAYS, TAKE 4 TABLETS (40 MG) DAILY FOR 2 DAYS, TAKE 3 TABLETS (30 MG) DAILY FOR 2 DAYS, TAKE 2 TABLETS (20 MG) DAILY FOR 2 DAYS, TAKE 1 TABLET (10 MG) DAILY FOR 2 DAYS. Umeclidinium-Vilanterol (Anoro Ellipta 62.5-25 Mcg/INH) 1 Aer Aer 1 PUFF INH QAM Discontinued Medications: Hydrochlorothiazide (Hctz) 25 Mg Tab 25 MG PO QAM, TAB Discharge Exam Patient states that he is 75 % improved today He still has some SOB with any sort of exertion but overall feels that it is improving He denies any chest pain and had no events overnight Review of Systems: Constitutional: No fever Eyes: No worsening of vision ENT: No hearing loss, No unusual epistaxis Respiratory: + dyspnea on exertion, No cough, No sputum, No wheezing, No shortness of breath, No dyspnea at rest Cardiovascular: No chest pain Abdomen: + problem reported (Bloating ), No pain, No nausea, No vomiting, No diarrhea, No constipation, No GI bleeding Musculoskeletal: No joint pain, No muscle pain Genitourinary - Male: No hematuria, No dysuria Neurologic: + weakness, No numbness/tingling, No balance problems Psychiatric: No depression symptoms Endocrine: + fatigue Hematologic / Lymphatic: + abnormal bleeding/bruising (bleeding from heparin injection site however resolved) Integumentary: No rash Hospital Course This is a 71 yo m with a history of HTN and COPD that originally presented to us with bilat arm pain and substernal chest pain. Patient was placed on heparin drip and troponin was trended. He was found to have elevated troponin reflective of a NSTEMI. Patient was brought to the labor relations worker and was revascularized in the proximal to mid LAD. Patient has had one episode of chest pain relieved with NTG since the PCI. He has had some increased SOB on exertion that has in general improved however a 2 Step was completed to assess for need for home O2 to be used during the day not only at night. The patient did not qualify for O2 and most likely exertional SOB secondary to the patient's NSTEMI. Patient was medically optimized for ASCVD risk and discharged home with close follow up. Chest pain secondary to NSTEMI - s/p mid LAD ARIEL placement - cont Losartan 25 mg - Metoprolol 100 mg bid - 80 mg of atorvastatin - continue ASA and Ticagrelor - rx given - plan for [facility] on d/c COPD - albuterol prn, singular 10 mg, ellipta cont'd HTN -- Holding HCTZ- reassess patient in outpatient for need to restart the diuretic - for the patient's LE edema we did discuss the use of JANUSZ stockings in the meantime Hypokalemia - recommend a repeat BMP in 1 week DVT Prophylaxis heparin bid, scd, encouraged to ambulate Total Time Spent: Greater than 30 minutes This includes examination of the patient, discharge planning, medication reconciliation, and communication with other providers. Discharge Instructions Please refer to the electronic Patient Visit Report (Discharge Instructions) for additional information. Reviewed: Pt Seen/Exam by Me History no more chest pain, shortness of breath Constitutional: denies: fever Respiratory: negative: short of breath Cardiovascular: denies chest pain General Appearance: no apparent distress Respiratory: lungs clear, no respiratory distress Cardiovascular: regular rate, rhythm Gastrointestinal: normal bowel sounds, non tender, soft Neurologic/Psychiatric: oriented x 3 Assessment/Plan Resident Physician Supervision Note: I independently interviewed and examined the patient and verified the gonzales history and physical, reviewed labs and image studies, discussed the case with the resident Dr. Hyatt and agree with the findings and care plan.
[2017-06-01] MEDS ORDERED: LPT40 PO (09:28)
[2017-06-01] MEDS ORDERED: METOPROLOL TARTRATE 50 MG TAB PO SCH (21:00)
== END 2017-06-01 12:15 | disposition home or self-care (01) | DRG 247 ==
LOC: EDBD 21:37 → C.EDB 21:41 → C.MED 05-30 00:22 → ENRESERV 05-30 00:56 → C.2T 05-30 15:45
PROVIDERS: ADMIT Hospitalist; ATTEND Family Medicine
PROC: 4A023N7 Measurement of Cardiac Sampling and Pressure, Left Heart, Percutaneous Approach (ICD-10-PCS; principal; 2017-05-30 12:57)
PROC: B240ZZ3 Ultrasonography of Single Coronary Artery, Intravascular (ICD-10-PCS; principal; 2017-05-30 12:57)
PROC: B211YZZ Fluoroscopy of Multiple Coronary Arteries using Other Contrast (ICD-10-PCS; principal; 2017-05-30 12:57)
PROC: 027034Z Dilation of Coronary Artery, One Artery with Drug-eluting Intraluminal Device, Percutaneous Approach (ICD-10-PCS; principal; 2017-05-30 12:57)
DX: I21.4 Non-ST elevation (NSTEMI) myocardial infarction (principal); J44.9 Chronic obstructive pulmonary disease, unspecified; I10 Essential (primary) hypertension; R91.1 Solitary pulmonary nodule; E27.9 Disorder of adrenal gland, unspecified; Z87.891 Personal history of nicotine dependence; Z79.82 Long term (current) use of aspirin; Z90.49 Acquired absence of other specified parts of digestive tract

== ENCOUNTER → 2017-06-05 | Outpatient (CLI) | payer OTHER ==
[~2017-06-05] MED LIST changes: +ASPI81TA28 PO; +AZITTAB PO; +BRL90 PO; +ECHI80CA PO; -ECHINACEA PO; +LOSA25TA18 PO; +LPT40 PO; +METO100T14 PO; +METO50TA16 PO; +MONT1TAB3 PO; +NTRSLP4 SL; +PRED10TA PO; -SNG10 PO
[2017-06-05 17:51] LABS: BLOOD UREA NITROGEN 24 mg/dl (7-18); BUN/CREATININE RATIO 26.6 (10-20); CALCIUM 9.3 mg/dl (8.5-10.1); CARBON DIOXIDE 28 mmol/L (21-32); CHLORIDE 109 mmol/L (98-107); CREATININE 0.91 mg/dl (0.60-1.40); GLUCOSE 78 mg/dl (70-99); SODIUM 141 mmol/L (136-145)
== END | disposition home or self-care (01) ==
LOC: C.LABPVFM 12:11
PROVIDERS: ATTEND Nurse Practitioner Family
DX: E87.6 Hypokalemia (principal)

== ENCOUNTER 2022-05-29 17:06 | Inpatient (IN) ==
[2022-05-29 17:36] LABS: Basophils # (auto) 0.03 K/uL (0-0.2); Basophils % (auto) 0.3 %; Hematocrit (blood only) 47.2 % (40.1-51.0); Immature Granulocytes # (auto) 0.03 K/uL (0.00-0.02); Immature Granulocytes % (auto) 0.3 %; Lymphocytes # (auto) 0.55 K/uL (1.2-3.4); Lymphocytes % (auto) 5.4 %; Mean Corpuscular Hemoglobin 32.7 pg (25.0-34.0); Mean Corpuscular Hgb Conc 33.9 g/dL (32.0-36.0); Mean Corpuscular Volume 96.3 fL (80.0-100.0); Mean Platelet Volume 9.4 fL (9.4-12.4); Monocytes # (auto) 2.01 K/uL (0.24-0.82); Monocytes % (auto) 19.8 %; Neutrophils # (auto) 7.52 K/uL (1.4-6.5); Neutrophils % (auto) 74.2 %; Platelet Count 174 K/uL (130-400); RDW Coefficient of Variation 12.6 % (11.5-14.5); RDW Standard Deviation 45.4 fL (36.4-46.3); White Blood Count 10.14 K/ul (4.8-10.8)
[2022-05-29 17:49] LABS: INR 1.1 (0.9-1.1); Partial Thromboplastin Time 28.2 Seconds (21.0-31.0); Prothrombin Time 12.1 Seconds (9.0-12.0)
[2022-05-29 17:59] LABS: Albumin Globulin Ratio 1.6 (0.9-2); Albumin Level 4.2 gm/dl (3.4-5.0); BUN Creatinine Ratio 27.1 (10-20); Bilirubin,Total 0.8 mg/dl (0.2-1.0); Calcium 9.1 mg/dl (8.5-10.1); Creatinine Clr Calc Pharmacy 71.3 ml/min; Est GFR (African American) 99.5 ml/min; Est GFR (Non-African American) 85.8 ml/min; Globulin 2.7 gm/dl (2.5-4.0); Magnesium 2.1 mg/dl (1.7-2.4); Potassium 4.1 mmol/L (3.5-5.1); Total Protein 6.9 gm/dl (6.0-8.3)
[2022-05-29] MEDS ORDERED: methylPREDNISolone 125 MG/2 ML VIAL IV STA (18:14)
[2022-05-29] MEDS ORDERED: ALBUT/IPRATROP 3MG/0.5MG NEB 3 ML VIAL NEB ONE (18:14)
--- NOTE | 2022-05-29 18:16 | Emergency Department Note ---
Impression & Plan Hypoxic, Influenza A, COPD (chronic obstructive pulmonary disease) ED Provider Note NAME: SHANNAN ESPINOSA AGE: 76 SEX: M : 1945 ARRIVES VIA: Walk-In INFORMANT: Patient ED PROVIDER(S): Vishal Sanchez DO CHIEF COMPLAINT: confusion and URI HPI: Patient is a 76-year-old male who presents ER for symptoms that started within the past 24 to 48 hours. He admits to cough, congestion, and runny nose. He notes the cough has become more productive and has been getting worse. He is short of breath with up moving around. He notes he has oxygen at home but only wears it at night. Denies any belly pain, nausea, vomiting, or diarrhea. notes that he was confused earlier today and was able to get into his computer which is very abnormal for him. No other exacerbating or remitting factors. ROS: See above HPI for pertinent positives & negatives. A total of 10 systems reviewed and were otherwise negative. PAST MEDICAL HISTORY:See Below PAST SURGICAL HISTORY:See Below FAMILY HISTORY:See Below SOCIAL HISTORY:See Below HOME MEDICATIONS:See Below ALLERGIES:See Below VITALS:See Below PHYSICAL EXAMINATION: GENERAL: Sitting up in bed, alert, slightly ill-appearing, persistent cough, on nasal cannula EYE EXAM: normal conjunctiva. PERRL and EOM's grossly intact. OROPHARYNX: no exudate, no erythema, lips, buccal mucosa, and tongue normal and mucous membranes are moist NECK: supple, no nuchal rigidity, no adenopathy, non-tender LUNGS: Clear to auscultation. Normal chest wall mechanics HEART: no murmurs, S1 normal and S2 normal ABDOMEN: abdomen soft, non-tender, normo-active bowel sounds, no masses, no rebound or guarding. UPPER EXTREMITIES: upper extremities are grossly normal. LOWER EXTREMITIES: Mild pitting edema bilaterally NEURO EXAM: Normal sensorium, cranial nerves II-XII grossly intact, normal speech, no gross weakness of arms, no gross weakness of legs. MEDICAL DECISION MAKING: Patient is a 76-year-old male who presents ER for upper respiratory symptoms. Upon arrival he is found to be hypoxic to 83%. Only wears oxygen at night. IV was established blood work was obtained. Labs show no significant leukocytosis or anemia. INR unremarkable. BMP along with LFTs bilirubin was unremarkable. Troponin was negative. COVID was negative. Influenza was positive. is sick with same symptoms but feeling better. His chest x-ray was clean. He was given hour-long neb treatment. Given steroids. Updated bedside. Remained on nasal cannula and was discussed with the hospitalist for further evaluation. Discussed with Pt concerning signs and symptoms to watch out for. Pt was instructed to follow up with their PCP and discussed with the patient their option to return to the ED at anytime for persistent or worsening symptoms. The appropriate anticipatory guidance and out-patient management, including indications for return to the emergency department, were explained at length to the patient and understood. Triage Nursing notes reviewed. Limited review of prior medical records performed Vital Signs: reviewed and remarkable for febrile, hypoxic and tachypneic Differential diagnosis: Differential diagnoses includes but is not limited to pneumonia, bronchitis, COPD/Asthma exacerbation, pneumothorax, pulmonary embolism, congestive heart fa ilure, acute coronary syndrome ER treatment provided: See below Diagnostics interpreted by me: ECG: Sinus rhythm rate of 98 Normal axis PVC QTC 421 Poor baseline Cardiac Monitoring: An order was placed for continuous cardiac monitoring. The monitor shows a rate of 92 with sinus rhythm. Laboratory studies: As stated above and show below. Imaging studies: Portable AP upright 1 view of the chest shows no focal infiltrate or pneumothorax Consultation(s): none Procedures: none Critical Care: I have personally spent 32 minutes of critical care time in the direct m anagement of this patient. This includes bedside care, interpretation of diagnostic studies, and testing, discussion with consultants, patient, and family members, and other required patient management activities. This 32 minutes is in excess of all separately billable procedures. Past Med/Surg History Medical History Environmental allergies NSTEMI (non-ST elevated myocardial infarction) Surgical History History of cholecystectomy Family History Other No pertinent family history Denies family history of Ovarian cancer Prostate cancer Myocardial infarction Breast cancer Colorectal cancer Social History Smoking Status: Former smoker Tobacco Type: Cigarettes Second Hand Exposure: No; Hx Alcohol Use: No Hx Substance Use: No Preferred Language: Citizen Of [place] Communication Ability: Effective Visual Impairment: Limited Hearing Ability: Normal Flotation Tender Required: No Beliefs That Will Affect Care: None marital status: Current Living Situation: Spouse current occupational status: employed How many Children do You have: 2 Feels Safe at Home: Yes Childhood Exposure to Second-Hand Smoke: Yes caffeine: Yes during the past year weight has: decreased > 10 lbs Dental Care, Regularly: Yes Physical Activity Frequency: 3-4 Times per Week Seatbelt Use: always Sunscreen Use: No Do you think of yourself as: straight/heterosexual Gender Identity: Male Assistive Devices: Glasses and Oxygen - Continuous Allergies Allergies Allergy/AdvReac Type Severity Reaction Status Date / Time ticagrelor [From Brilinta] Allergy shortness Verified 05/29/22 20:18 of breath Home Meds Home Medications Medication Instructions Recorded Confirmed Oxygen Home #1 ea 11/17/18 05/23/22 multivitamin 1 tab PO DAILY 11/17/18 05/29/22 echinacea 500 mg capsule 1,520 mg PO DAILY 06/29/21 05/29/22 sodium fluoride 1.1 %-potassium 1 applic PO HS 05/29/22 05/29/22 nitrate 5 % dental paste Previous Rx's Medication Instructions Recorded albuterol sulfate 90 mcg/actuation 2 puffs inhalation Q4H PRN 11/17/18 aerosol inhaler shortness of breath or wheezing #18 grams calcium carbonate 500 mg-vitamin 1 tab PO BID #30 tabs 11/17/18 D3 3.125 mcg (125 unit) tablet cetirizine 10 mg tablet 10 mg PO DAILY #30 tabs 11/17/18 montelukast 10 mg tablet 10 mg PO DAILY #30 tabs 11/17/18 hydrochlorothiazide 12.5 mg tablet 12.5 mg PO Q OTHER DAY #45 tabs 09/27/21 atorvastatin 80 mg tablet 80 mg PO DAILY #90 tabs 11/06/21 nitroglycerin 0.4 mg sublingual 0.4 mg sublingual Q5M PRN chest 01/03/22 tablet pain #20 tabs metoprolol tartrate 50 mg tablet 50 mg PO BID #60 tabs 01/18/22 clopidogrel 75 mg tablet 75 mg PO DAILY #90 tabs 05/20/22 Results & Data (ED) Vital Signs Vital Signs - 24 hr 05/29/22 17:10 05/29/22 18:22 05/29/22 18:22 Temperature 37.7 C H Temperature Source Temporal Artery Scan Pulse Rate 98 H Pulse Rate [Apical] Pulse Rhythm Regular Pulse Strength Normal Respiratory Rate 26 H 24 Respiratory Effort / Characteristics Non-Labored Spontaneous Short of Breath Respiratory Depth Normal Respiratory Pattern Regular Blood Pressure 112/75 Blood Pressure [Right Arm] Blood Pressure Mean 87 Blood Pressure Mean [Right Arm] Blood Pressure Position Sitting Pulse Oximetry 83 L 95 Oxygen Delivery Method Room Air Nasal Cannula Nasal Cannula Oxygen Flow Rate 2 Sepsis Recent Fever Within 48 Hours No Sepsis New/Unexplained Change in Mental Status N/A Sepsis Action Taken by Nursing No Action Required 05/29/22 18:22 05/29/22 18:23 05/29/22 18:38 Temperature Temperature Source Pulse Rate Pulse Rate [Apical] 95 H 109 H Pulse Rhythm Pulse Strength Respiratory Rate 24 18 Respiratory Effort / Characteristics Short of Breath Non-Labored Spontaneous Respiratory Depth Respiratory Pattern Tachypnea Blood Pressure Blood Pressure [Right Arm] 119/75 Blood Pressure Mean Blood Pressure Mean [Right Arm] 89 Blood Pressure Position Pulse Oximetry 95 95 95 Oxygen Delivery Method Nasal Cannula Nasal Cannula Nasal Cannula Oxygen Flow Rate 2 2 2 Sepsis Recent Fever Within 48 Hours Sepsis New/Unexplained Change in Mental Status Sepsis Action Taken by Nursing Laboratory Data Result diagrams: 05/29/22 17:28 05/29/22 17:28 Lab Results 05/29/22 05/29/22 05/29/22 Range/Units 17:23 17:28 17:28 WBC 10.14 (4.8-10.8) K/ul RBC 4.90 (4.63-6.08) M/uL Hgb 16.0 (14.0-18.0) g/dl Hct 47.2 (40.1-51.0) % MCV 96.3 (80.0-100.0) fL MCH 32.7 (25.0-34.0) pg MCHC 33.9 (32.0-36.0) g/dL RDW Std Deviation 45.4 (36.4-46.3) fL RDW Coeff of Lee 12.6 (11.5-14.5) % Plt Count 174 (130-400) K/uL MPV 9.4 (9.4-12.4) fL Immature Gran % (Auto) 0.3 % Neut % (Auto) 74.2 % Lymph % (Auto) 5.4 % [place] % (Auto) 19.8 % Eos % (Auto) 0.0 % Baso % (Auto) 0.3 % Neut # (Auto) 7.52 H (1.4-6.5) K/uL Lymph # (Auto) 0.55 L (1.2-3.4) K/uL [place] # (Auto) 2.01 H (0.24-0.82) K/uL Eos # (Auto) 0.00 (0-0.50) K/uL Baso # (Auto) 0.03 (0-0.2) K/uL Immature Gran # (Auto) 0.03 H (0.00-0.02) K/uL PT 12.1 H (9.0-12.0) Seconds INR 1.1 (0.9-1.1) APTT 28.2 (21.0-31.0) Seconds PTT Ratio 1.0 Sodium (136-145) mmol/L Potassium (3.5-5.1) mmol/L Chloride (98-107) mmol/L Carbon Dioxide (21-32) mmol/L Anion Gap (3-11) BUN (6-23) mg/dl Creatinine (0.6-1.4) mg/dl Est Cr Clr Drug Dosing ml/min Est GFR ( Amer) ml/min Est GFR (Non-Af Amer) ml/min BUN/Creatinine Ratio (10-20) Glucose (70-99(Fasting)) mg/dl Calcium (8.5-10.1) mg/dl Magnesium (1.7-2.4) mg/dl Total Bilirubin (0.2-1.0) mg/dl AST (13-39) U/L ALT (7-52) U/L Alkaline Phosphatase (34-104) U/L Troponin I High Sens (0-20) pg/ml Total Protein (6.0-8.3) gm/dl Albumin (3.4-5.0) gm/dl Globulin (2.5-4.0) gm/dl Albumin/Globulin Ratio (0.9-2) SARS-CoV-2 (PCR) NEGATIVE (Negative) Influenza Type A (PCR) Positive A* (Neg) Influenza Type B (PCR) Negative (Neg) RSV (RT-PCR) Negative (Neg) 05/29/22 05/29/22 Range/Units 17:28 17:28 WBC (4.8-10.8) K/ul RBC (4.63-6.08) M/uL Hgb (14.0-18.0) g/dl Hct (40.1-51.0) % MCV (80.0-100.0) fL MCH (25.0-34.0) pg MCHC (32.0-36.0) g/dL RDW Std Deviation (36.4-46.3) fL RDW Coeff of Lee (11.5-14.5) % Plt Count (130-400) K/uL MPV (9.4-12.4) fL Immature Gran % (Auto) % Neut % (Auto) % Lymph % (Auto) % [place] % (Auto) % Eos % (Auto) % Baso % (Auto) % Neut # (Auto) (1.4-6.5) K/uL Lymph # (Auto) (1.2-3.4) K/uL [place] # (Auto) (0.24-0.82) K/uL Eos # (Auto) (0-0.50) K/uL Baso # (Auto) (0-0.2) K/uL Immature Gran # (Auto) (0.00-0.02) K/uL PT (9.0-12.0) Seconds INR (0.9-1.1) APTT (21.0-31.0) Seconds PTT Ratio Sodium 136 (136-145) mmol/L Potassium 4.1 (3.5-5.1) mmol/L Chloride 102 (98-107) mmol/L Carbon Dioxide 26 (21-32) mmol/L Anion Gap 8 (3-11) BUN 23 (6-23) mg/dl Creatinine 0.85 (0.6-1.4) mg/dl Est Cr Clr Drug Dosing 71.3 ml/min Est GFR ( Amer) 99.5 ml/min Est GFR (Non-Af Amer) 85.8 ml/min BUN/Creatinine Ratio 27.1 H (10-20) Glucose 106 H (70-99(Fasting)) mg/dl Calcium 9.1 (8.5-10.1) mg/dl Magnesium 2.1 (1.7-2.4) mg/dl Total Bilirubin 0.8 (0.2-1.0) mg/dl AST 31 (13-39) U/L ALT 27 (7-52) U/L Alkaline Phosphatase 61 (34-104) U/L Troponin I High Sens 8.4 (0-20) pg/ml Total Protein 6.9 (6.0-8.3) gm/dl Albumin 4.2 (3.4-5.0) gm/dl Globulin 2.7 (2.5-4.0) gm/dl Albumin/Globulin Ratio 1.6 (0.9-2) SARS-CoV-2 (PCR) (Negative) Influenza Type A (PCR) (Neg) Influenza Type B (PCR) (Neg) RSV (RT-PCR) (Neg) Administered Medications Discontinued Medications Albuterol (Albut/Ipratrop 3mg/0.5mg Neb 3 Ml Vial) 12 ml NEB ONE ONE; Protocol Stop: 05/29/22 18:15 Last Admin: 05/29/22 18:38 Dose: 12 ml Documented By: CHARLEY Methylprednisolone (Methylprednisolone 125 Mg/2 Ml Vial) 60 mg IV NOW STA Stop: 05/29/22 18:15 Last Admin: 05/29/22 18:20 Dose: 60 mg Documented By: NMS Imaging Data Radiologist's Impression: Chest X-Ray 05/29/22 17:16 XR chest 1V portable HISTORY: Shortness of breath. COMPARISON: Chest 05/29/2017. FINDINGS: No pneumothorax. No pleural effusions. Advanced emphysema is again noted. The heart is normal in size. No evidence for pulmonary edema. Increased markings at the lung bases favor vascular crowding due to the hyperexpanded vida gs. This is similar to the prior study. Otherwise, no new focal lung consolidations to suggest a pneumonia. A left coronary artery stent is noted. A right lower lobe calcified granuloma remain stable. IMPRESSION: No significant change compared to the prior study. No acute process. Advanced emphysema again noted. ACT 112: Negative or not required by law. Electronically signed by: Miguelito Ramirez M.D. 05/29/2022 6:[address] 05/29/22 18:[address] DOSE: 1277.33 mGy.cm HISTORY: confusion TECHNIQUE: Multiaxial CT images of the head were performed without the use of intravenous contrast. Automated exposure control was utilized for this study. A dose lowering technique was utilized adhering to the principles of ALARA. Comparison: None. Findings: Mild motion artifact. The paranasal sinuses and mastoid air cells are clear. The calvarium and skull base are intact. The ventricles and sulci are within normal limits. There is no mass, hematoma, midline shift, or acute infarct. Impression: No acute intracranial abnormality. ACT 112: Negative or not required by law. Electronically signed by: Miguelito Ramirez M.D. 05/29/2022 8:03 PM Discharge Plan Visit Data Chief Complaint: Referred by Doctor Stated Complaint: REFERRED BY DOC,CONGESTION,SLIGHT FEVER ED Provider: Vishal Sanchez Discharge Problem: Hypoxic, Influenza A, COPD (chronic obstructive pulmonary disease) Patient Disposition: Admitted As Inpatient Discharge Instructions Interventions: ED Discharge Assessment Last Done: 05/29/22 20:54
[2022-05-29 18:18] LABS: Influenza B virus by PCR Negative (Neg); RSV by PCR Negative (Neg); SARS CoV2 RNA(COVID-19) Ceph NEGATIVE (Negative)
[2022-05-29 18:31] LABS: Influenza A virus by PCR Positive (Neg)
--- NOTE | 2022-05-29 19:00 | XRay Report ---
XR chest 1V portable HISTORY: Shortness of breath. COMPARISON: Chest 05/29/2017. FINDINGS: No pneumothorax. No pleural effusions. Advanced emphysema is again noted. The heart is norm al in size. No evidence for pulmonary edema. Increased markings at the lung bases favor vascular [place] ding due to the hyperexpanded lungs. This is similar to the prior study. Otherwise, no new focal lung consolidations to suggest a pneumonia. A left coronary artery stent is noted. A right lower lobe korin cified granuloma remain stable. IMPRESSION: No significant change compared to the prior study. No acute process. Advanced emphysema again noted. ACT 112: Negative or not required by law. Electronically signed by: Miguelito Ramirez M.D. 05/29/2022 6:59 PM
[2022-05-29] MEDS ORDERED: ACETAMINOPHEN 325 MG TAB PO PRN (19:43)
--- NOTE | 2022-05-29 19:44 | History & Physical Report ---
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 for evaluation of shortness of breath, subsequently found to have Influenza A and features of a mild COPD exacerbation. Influenza A, Mild COPD Exacerbation Patient reporting approximately 24 hours worth of worsening upper and lower respiratory symptoms, subsequently found to be influenza A positive upon arrival in the ER here Suspect that most of his symptoms at present (tachypnea, increased sputum production, increased work of breathing) is primarily secondary to COPD exacerbation from the flu -- CXR did not demonstrate any e/o secondary bacterial PNA Supplemental oxygen as needed to maintain SPO2 over 89% Tamiflu X 5 days will be ordered since symptoms < 48 hours Given that he has a mild degree of COPD exacerbation, will pursue the following DuoNebs 4 times daily SKYLER Azithromycin X 5 days Prednisone 40 mg daily X 5 days Mucinex 1200 mg twice daily Flutter valve, incentive spirometry Continuous pulse oximetry Continue home inhaler Admit to monitored bed with airborne precautions (2) Confusion: Plan: Encephalopathy Patient's reporting approximately 1 day worth of mild confusion at home (such as using the computer to perform basic tasks) as well as significant fatigue in the setting of acute respiratory symptoms CT of the head did not demonstrate any acute processes Review of labs did not reveal any significant metabolic abnormalities Primarily suspect due to COPD exacerbation/influenza/mild hypoxemia Seems to be resolved at this point. Will monitor. (3) COPD (chronic obstructive pulmonary disease): Plan: Stage IIID COPD Management as above Follows with [facility] pulmonology Continue home inhalers (4) CAD in [place] artery: Plan: CAD / HTN / HLD Follows with Dr. Watts - [facility] Cardiology Cath in 05/2017 revealing 80% stenosis of LAD -- s/p ARIEL x 2 Continue statin, clopidogrel, hydrochlorothiazide, metoprolol Plan Code: Full code Diet: Heart healthy Prophylaxis: Lovenox Dispo: [facility] History of Present Illness Primary Care Provider: Manny Tejada DO 76-year-old male with a history of stage IIID COPD (2L at night only), CAD, hypertension, aortic aneurysm who presented to [facility] for evaluation of confusion and respiratory symptoms. His contributes to the history. She said that over the past day, he has not been himself. He has been significantly more fatigued and less interactive than usual. Normally he is "up and add it "and very tech savvy, but he was confused on the computer today when performing normal functions. The patient does tell me that he was notably more short of breath last night compared to usual. He also felt like he had a lot of chest and sinus congestion. He used a pulse oximeter at home, and he said the oxygen levels were anywhere from 75-90+ percent. He said that his heart rate was in the 120s, which was unusual for him. He denied any chest pain, palpitations, shortness of breath. Before this, he otherwise felt in his normal health. 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 He believes that he may have gotten sick from this. He denies any recent long car rides, airplane rides, or periods of immobility. He denies any new calf pain or swelling. In the ER, patient was found to be tachycardic to 109 and febrile to 30 7.7C. He was saturating 95% on 2 L. Labs demonstrate white count 10.1 with lymp hopenia and monocytosis. BUN 23/creatinine 0.85. LFTs normal. Influenza A positive, COVID-negative, RSV negative. His chest x-ray demonstrated advanced emphysema without additional acute processes. He was given an hour-long DuoNeb's treatment as well as 60 of methylprednisolone. Allergies Allergy/AdvReac Type Severity Reaction Status Date / Time ticagrelor [From Brilinta] Allergy shortness Verified 05/29/22 20:18 of breath Home Medications Medication Instructions Recorded Confirmed Type Oxygen Home #1 ea 11/17/18 05/23/22 History albuterol sulfate 90 mcg/actuation 2 puffs inhalation Q4H PRN 11/17/18 05/29/22 Rx aerosol inhaler shortness of breath or wheezing #18 grams calcium carbonate 500 mg-vitamin 1 tab PO BID #30 tabs 11/17/18 05/29/22 Rx D3 3.125 mcg (125 unit) tablet cetirizine 10 mg tablet 10 mg PO DAILY #30 tabs 11/17/18 05/29/22 Rx montelukast 10 mg tablet 10 mg PO DAILY #30 tabs 11/17/18 05/29/22 Rx multivitamin 1 tab PO DAILY 11/17/18 05/29/22 History echinacea 500 mg capsule 1,520 mg PO DAILY 06/29/21 05/29/22 History hydrochlorothiazide 12.5 mg tablet 12.5 mg PO Q OTHER DAY #45 tabs 09/27/21 05/29/22 Rx atorvastatin 80 mg tablet 80 mg PO DAILY #90 tabs 11/06/21 05/29/22 Rx nitroglycerin 0.4 mg sublingual 0.4 mg sublingual Q5M PRN chest 01/03/22 05/29/22 Rx tablet pain #20 tabs metoprolol tartrate 50 mg tablet 50 mg PO BID #60 tabs 01/18/22 05/29/22 Rx clopidogrel 75 mg tablet 75 mg PO DAILY #90 tabs 05/20/22 05/29/22 Rx sodium fluoride 1.1 %-potassium 1 applic PO HS 05/29/22 05/29/22 History nitrate 5 % dental paste Past Med/Surg History Medical History Environmental allergies NSTEMI (non-ST elevated myocardial infarction) Surgical History History of cholecystectomy Family History Other No pertinent family history Denies family history of Ovarian cancer Prostate cancer Myocardial infarction Breast cancer Colorectal cancer Social History Smoking Status: Never smoker Tobacco Type: Cigarettes Second Hand Exposure: No; Hx Alcohol Use: No Hx Substance Use: No Preferred Language: [place] Communication Ability: Effective Visual Impairment: Limited Hearing Ability: Normal 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: No Beliefs That Will Affect Care: None marital status: Current Living Situation: Spouse current occupational status: employed How many Children do You have: 2 Feels Safe at Home: Yes Childhood Exposure to Second-Hand Smoke: Yes caffeine: Yes during the past year weight has: decreased > 10 lbs Dental Care, Regularly: Yes Physical Activity Frequency: 3-4 Times per Week Seatbelt Use: always Sunscreen Use: No Do you think of yourself as: straight/heterosexual Gender Identity: Male Assistive Devices: Glasses Review of Systems Review of Systems: as per HPI Physical Exam Physical Exam: General: 76-year old male who appears tachypneic, but in no acute distress HEENT: NCAT. - Eyes - Sclera are white, anicteric, and without injection. - Mouth - MMM - Neck - supple, no appreciable JVD Cardiac: Tachycardic with regular rhythm; S1 and S2 present with no murmurs, rubs, or gallops. Pulmonary: Increased respiratory effort with symmetric expansion of the chest. Tachypnea is noted. Very mild conversational dyspnea. Exam of the lungs reveals diminished lung sounds throughout with expiratory wheezes scattered on both the left and right sides. Coarse breath sounds are appreciated at the bases. Abdominal: Normoactive bowel sounds. Abdomen was soft, nondistended, and non- tender to palpation. Extremities: Upper and lower extremities are warm and well perfused. 1+ peripheral edema in the lower extremities bilaterally Psych: Well-developed, well-nourished, appropriately dressed for occasion. Behavior is cooperative and appropriate. Affect is WNL. Insight is appropriate. Results & Data Results & Data ([facility]) Vital Signs (Past 12 Hours) Vital Signs Temp Pulse Pulse Resp BP BP Pulse Ox 05/29/22 18:38 109 H 18 95 05/29/22 18:23 95 H 24 119/75 95 05/29/22 18:22 95 05/29/22 18:22 05/29/22 18:22 24 95 05/29/22 17:10 37.7 C H 98 H 26 H 112/75 83 L O2 Del Method O2 Flow Rate 05/29/22 18:38 Nasal Cannula 2 05/29/22 18:23 Nasal Cannula 2 05/29/22 18:22 Nasal Cannula 2 05/29/22 18:22 Nasal Cannula 05/29/22 18:22 Nasal Cannula 2 05/29/22 17:10 Room Air Supervising Physician Co-Signing Physician Notes Resident Physician Supervision Note: I interviewed and examined the patient. Discussed with and agree with findings and plan as documented in the note. Any exceptions or clarifications are listed here: 0 76-year-old male with stage IIId COPD who presents with respiratory distress with 24 hours worsening work of breathing tachypnea and cough. Patient is found to be influenza A positive in the ER. He claims to be vaccinated. The patient typically wears 2 L of oxygen at night but now requires to his oxygen for sustaining saturations are 89%. PT has no pneumonia exam is with poor air movement, no wheezes after treatment, cough that is nonproductive some confusion that is metabolic encephalopathy from infection admit for tamiflu, oxygen prednisone azithro and mucinex Documented By: Fracisco Blount MD Resident Activity Tracking Resident Involvement: Resident Care Provided Care Provided: Adult [facility] Medicine
--- NOTE | 2022-05-29 20:04 | CT Scan Report ---
HEAD CT NONCONTRAST CT DOSE: 1277.33 mGy.cm HISTORY: confusion TECHNIQUE: Multiaxial CT images of the head were performed without the use of intravenous contrast. A utomated exposure control was utilized for this study. A dose lowering technique was utilized adheri ng to the principles of ALARA. Comparison: None. Findings: Mild motion artifact. The paranasal sinuses and mastoid air cells are clear. The calvarium and skull base are intact. The ventricles and sulci are within normal limits. There is no mass, hemat luly, midline shift, or acute infarct. Impression: No acute intracranial abnormality. ACT 112: Negative or not required by law. Electronically signed by: Miguelito Ramirez M.D. 05/29/2022 8:03 PM
[2022-05-29] MEDS ORDERED: ALBUTEROL HFA 8 GM INHALER INH PRN (20:32)
[2022-05-29] MEDS ORDERED: NITROGLYCERIN SL 0.4 MG/TAB TAB SL PRN (20:32)
--- NOTE | 2022-05-29 20:48 | Billing Data ---
Date of Service May 29, 2022 Coding Level of Care Code 57642 Initial Inpt Care Lvl 3
[2022-05-29] MEDS ORDERED: SODIUM FLUORIDE PO SCH (21:00)
[2022-05-29] MEDS ORDERED: [UNRECOGNIZED DRUG - OTHER] PO SCH (21:00)
[2022-05-29] MEDS ORDERED: CALCIUM CARBONATE VITAMIN D3 PO SCH (21:00)
[2022-05-29] MEDS ORDERED: POTASSIUM NITRATE PO SCH (21:00)
[2022-05-29] MEDS ORDERED: AZITHROMYCIN 250 MG TAB PO ONE (21:25)
[2022-05-29] MEDS: ENOXAPARIN INJ 40 MG/0.4 ML SYR SQ SCH (22:51)
[2022-05-29] MEDS: METOPROLOL TARTRATE 50 MG TAB PO SCH (22:52)
[2022-05-29] MEDS: guaiFENesin 600 MG TABCR PO SCH (22:52)
[2022-05-29] MEDS: OSELTAMIVIR PHOSPHATE 75 MG CAP PO SCH (22:53)
[2022-05-30] MEDS: ALBUT/IPRATROP 3MG/0.5MG NEB 3 ML VIAL INH SCH ×4 (01:04→19:53)
--- NOTE | 2022-05-30 07:52 | Hospitalist Progress Note ---
Date of Service May 30, 2022 Assessment & Plan (1) Influenza A: Plan: 76-year-old male with a history of stage IIID COPD (on 2L at night only), CAD, hypertension, aortic aneurysm who presented to [facility] for evaluation of shortness of breath, subsequently found to have Influenza A and features of a mild COPD exacerbation. Influenza A, Mild COPD Exacerbation Patient reporting approximately 24 hours worth of worsening upper and lower respiratory symptoms prior to presenting to the ER, subsequently found to be influenza A positive upon arrival to [facility] ER Suspect that most of his symptoms at present (tachypnea, increased sputum production, increased work of breathing) is primarily secondary to COPD exacerbation from influenza A-- CXR did not demonstrate any evidence of secondary bacterial PNA Supplemental oxygen as needed to maintain SPO2 over 89% (Currently on 2 L NC at 90%) Tamiflu X 5 days was ordered since symptoms < 48 hours Given that he has a mild degree of COPD exacerbation to continue: DuoNebs 4 times daily SKYLER Azithromycin X 5 days Prednisone 40 mg daily X 5 days Mucinex 1200 mg twice daily Flutter valve, incentive spirometry Continuous pulse oximetry Continue home inhaler Admit to monitored bed with airborne precautions (2) Confusion: Plan: Encephalopathy Per HPI, Patient's reported approximately 1 day worth of mild confusion at home (such as using the computer to perform basic tasks) as well as significant fatigue in the setting of acute respiratory symptoms CT of the head did not demonstrate any acute processes Review of labs did not reveal any significant metabolic abnormalities Primarily suspect due to COPD exacerbation/influenza/mild hypoxemia Seems to be resolved at this point. Will monitor. (3) COPD (chronic obstructive pulmonary disease): Plan: Stage IIID COPD Management as above Follows with [facility] pulmonology Continue home inhalers (4) CAD in [place] artery: Plan: CAD / HTN / HLD Follows with Dr. Watts - [facility] Cardiology Cath in 05/2017 revealing 80% stenosis of LAD -- s/p ARIEL x 2 Continue statin, clopidogrel, hydrochlorothiazide, metoprolol - Metoprolol held this AM due to BP 99/65 Plan Code: Full code Diet: Heart healthy Prophylaxis: Lovenox Dispo: [facility] Admission and Anticipated Discharge Date Admission Date: May 29, 2022 Subjective Patient is sitting upright in bed and states he is feeling better this AM compared to yesterday morning. He is feeling less short of breath but still congested with a lot of post nasal drainage. He denies any chest pain or dyspnea. Review of Systems Constitutional: + chills and + fatigue; no fever and no body aches Eyes: no blind spots, no diplopia and no eye pain Ear, Nose, Mouth, Throat: + nasal congestion, + nasal discharge and + post nasal drip; no epistaxis and no sinus pain/pressure Respiratory: + cough, + chest congestion, + change in sputum and + sputum production; no hemoptysis Cardiovascular: no chest pain, no palpitations, no syncope and no edema Gastrointestinal: no abdominal pain, no nausea, no vomiting and no pain with swallowing Genitourinary: no dysuria, no nocturia or no flank pain Neurologic: + generalized weakness; no falls and no syncope Physical Exam Constitutional: WD/WN, vitals as above ENMT: external ear and nose normal, oropharynx normal Neck: trachea midline, no thyromegaly Respiratory: + uses accessory muscles, + cough, able to speak in complete sentences and + prolonged expiratory phase; no nasal flaring, no tripod positioning and no stridor Auscultation: + diminished lung sounds and + wheezes (expiratory wheezes bilaterally) Cardiovascular: RRR, no murmur, no edema Extremities: no edema Gastrointestinal (Abdomen): normal bowel sounds, soft, nontender, no hepatosplenomegaly Skin: no rashes, warm and dry Results & Data Results & Data ([facility]) Vital Signs (Past 12 Hours) Vital Signs Temp Pulse Pulse Pulse Resp BP BP 05/30/22 07:28 86 18 05/30/22 06:07 80 05/30/22 01:08 85 20 05/29/22 23:23 37.0 C 100 H 20 97/63 L 05/29/22 22:02 113 H 05/29/22 21:43 113 H 05/29/22 21:56 05/29/22 21:56 05/29/22 21:56 37.1 C 106 H 19 142/103 H Pulse Ox O2 Del Method O2 Flow Rate 05/30/22 07:28 95 Nasal Cannula 2 05/30/22 06:07 05/30/22 01:08 96 Nasal Cannula 2 05/29/22 23:23 96 Nasal Cannula 3 05/29/22 22:02 05/29/22 21:43 05/29/22 21:56 Nasal Cannula 05/29/22 21:56 Nasal Cannula 05/29/22 21:56 93 Nasal Cannula 3 Laboratory Results Abnormal lab results 05/29/22 05/29/22 05/29/22 Range/Units 17:23 17:28 17:28 RBC (4.63-6.08) M/uL Hgb (14.0-18.0) g/dl Hct (40.1-51.0) % Neut # (Auto) 7.52 H (1.4-6.5) K/uL Lymph # (Auto) 0.55 L (1.2-3.4) K/uL Cross # (Auto) 2.01 H (0.24-0.82) K/uL Immature Gran # (Auto) 0.03 H (0.00-0.02) K/uL PT 12.1 H (9.0-12.0) Seconds BUN (6-23) mg/dl BUN/Creatinine Ratio (10-20) Glucose (70-99(Fasting)) mg/dl Calcium (8.5-10.1) mg/dl Influenza Type A (PCR) Positive A* (Neg) 05/29/22 05/30/22 05/30/22 Range/Units 17:28 07:31 07:31 RBC 4.21 L (4.63-6.08) M/uL Hgb 13.8 L (14.0-18.0) g/dl Hct 39.8 L (40.1-51.0) % Neut # (Auto) 8.11 H (1.4-6.5) K/uL Lymph # (Auto) 0.46 L (1.2-3.4) K/uL Cross # (Auto) 1.29 H (0.24-0.82) K/uL Immature Gran # (Auto) 0.06 H (0.00-0.02) K/uL PT (9.0-12.0) Seconds BUN 27 H (6-23) mg/dl BUN/Creatinine Ratio 27.1 H 34.2 H (10-20) Glucose 106 H 119 H (70-99(Fasting)) mg/dl Calcium 8.2 L (8.5-10.1) mg/dl Influenza Type A (PCR) (Neg) Diagnostic Findings Chest X-Ray 12/14/22 17:16 XR chest 1V portable HISTORY: Shortness of breath. COMPARISON: Chest 05/29/2017. FINDINGS: No pneumothorax. No pleural effusions. Advanced emphysema is again noted. The heart is normal in size. No evidence for pulmonary edema. Increased markings at the lung bases favor vascular crowding due to the hyperexpanded lungs. This is similar to the prior study. Otherwise, no new focal lung consolidations to suggest a pneumonia. A left coronary artery stent is noted. A right lower lobe calcified granuloma remain stable. IMPRESSION: No significant change compared to the prior study. No acute process. Advanced emphysema again noted. ACT 112: Negative or not required by law. Electronically signed by: Miguelito Ramirez M.D. 05/29/2022 6:[address] 05/29/22 18:[address] DOSE: 1277.33 mGy.cm HISTORY: confusion TECHNIQUE: Multiaxial CT images of the head were performed without the use of intravenous contrast. Automated exposure control was utilized for this study. A dose lowering technique was utilized adhering to the principles of ALARA. Comparison: None. Findings: Mild motion artifact. The paranasal sinuses and mastoid air cells are clear. The calvarium and skull base are intact. The ventricles and sulci are within normal limits. There is no mass, hematoma, midline shift, or acute infarct. Impression: No acute intracranial abnormality. ACT 112: Negative or not required by law. Electronically signed by: Miguelito Ramirez M.D. 05/29/2022 8:03 PM PG Care Time/CCT Total # of Minutes Spent Total Time Spent with Patient: Total time spent is greater than 50% in coordination of care (as documented) at patient's floor/unit and/or counseling patient: Coding Level of Care Code 80923 Subseq Hosp Care Lvl 3 Diagnoses Influenza A J10.1 Confusion R41.0 COPD (chronic obstructive pulmonary disease) J44.9 CAD in [place] artery I25.10 Time Spent (min) 25
[2022-05-30 08:15] LABS: Basophils # (auto) 0.01 K/uL (0-0.2); Basophils % (auto) 0.1 %; Hematocrit (blood only) 39.8 % (40.1-51.0); Hemoglobin 13.8 g/dl (14.0-18.0); Immature Granulocytes # (auto) 0.06 K/uL (0.00-0.02); Immature Granulocytes % (auto) 0.6 %; Lymphocytes # (auto) 0.46 K/uL (1.2-3.4); Lymphocytes % (auto) 4.6 %; Mean Corpuscular Hemoglobin 32.8 pg (25.0-34.0); Mean Corpuscular Hgb Conc 34.7 g/dL (32.0-36.0); Mean Corpuscular Volume 94.5 fL (80.0-100.0); Mean Platelet Volume 9.7 fL (9.4-12.4); Monocytes # (auto) 1.29 K/uL (0.24-0.82); Neutrophils # (auto) 8.11 K/uL (1.4-6.5); Neutrophils % (auto) 81.7 %; Platelet Count 152 K/uL (130-400); RDW Coefficient of Variation 12.9 % (11.5-14.5); RDW Standard Deviation 44.8 fL (36.4-46.3); Red Blood Count 4.21 M/uL (4.63-6.08); White Blood Count 9.93 K/ul (4.8-10.8)
[2022-05-30 08:36] LABS: Albumin Globulin Ratio 1.3 (0.9-2); Albumin Level 3.5 gm/dl (3.4-5.0); BUN Creatinine Ratio 34.2 (10-20); Bilirubin,Total 0.5 mg/dl (0.2-1.0); Calcium 8.2 mg/dl (8.5-10.1); Creatinine Clr Calc Pharmacy 76.7 ml/min; Est GFR (African American) 102.5 ml/min; Est GFR (Non-African American) 88.5 ml/min; Globulin 2.6 gm/dl (2.5-4.0); Total Protein 6.1 gm/dl (6.0-8.3)
[2022-05-30] MEDS ORDERED: FLUTICASONE HFA 110MCG INHALER INH SCH (09:00)
[2022-05-30] MEDS ORDERED: NON-FORMULARY MEDICATION (Multivitamin tablet) PO SCH (09:00)
[2022-05-30] MEDS: CETIRIZINE HCL 10 MG TABLET PO SCH (09:08)
[2022-05-30] MEDS: METOPROLOL TARTRATE 50 MG TAB PO SCH ×2 (09:11→20:32)
[2022-05-30] MEDS: MONTELUKAST SODIUM 10 MG TABLET PO SCH (09:12)
[2022-05-30] MEDS: ATORVASTATIN 40 MG TAB PO SCH (09:12)
[2022-05-30] MEDS: predniSONE 20 MG TAB PO SCH (09:12)
[2022-05-30] MEDS: CLOPIDOGREL BISULFATE 75 MG TAB PO SCH (09:12)
[2022-05-30] MEDS: OSELTAMIVIR PHOSPHATE 75 MG CAP PO SCH ×2 (09:13→20:33)
[2022-05-30] MEDS: guaiFENesin 600 MG TABCR PO SCH ×2 (09:14→20:32)
[2022-05-30] MEDS: UMECLIDINIUM/VILANTEROL 62.5/25MCG 7 PUFFS/INHALER INH SCH (09:14)
[2022-05-30] MEDS: FLUTICASONE FUROATE 100MCG 14 PUFFS/INHALER INH SCH (09:15)
[2022-05-30] MEDS: FLUTICASONE PROPIONATE NA SPR 16 GM BTL SCH (09:16)
--- NOTE | 2022-05-30 15:03 | Electrocardiogram Report ---
Test Reason : Blood Pressure : / mmHG Vent. Rate : 098 BPM Atrial Rate : 098 BPM P-R Int : 150 ms QRS Dur : 080 ms QT Int : 330 ms P-R-T Axes : 082 078 083 degrees QTc Int : 421 ms Poor data quality, interpretation may be adversely affected Sinus rhythm with with occasional Premature ventricular complexes Otherwise normal ECG When compared with ECG of 30-MAY-2017 17:12, Premature ventricular complexes now present Minor ST elevation in Anterolateral leads no longer present Confirmed by Nick Guidry ([id number]) on 05/30/2022 3:02:36 PM Referred By: REFERRED SELF Confirmed By:Nick Guidry
[2022-05-30] MEDS: ENOXAPARIN INJ 40 MG/0.4 ML SYR SQ SCH (20:32)
[2022-05-30] MEDS: AZITHROMYCIN 250 MG TAB PO SCH (20:33)
[2022-05-31] MEDS: ALBUT/IPRATROP 3MG/0.5MG NEB 3 ML VIAL INH SCH ×4 (00:49→20:27)
[2022-05-31 07:12] LABS: Hemoglobin 14.5 g/dl (14.0-18.0); Mean Corpuscular Hemoglobin 32.2 pg (25.0-34.0); Mean Corpuscular Volume 97.8 fL (80.0-100.0); Mean Platelet Volume 9.6 fL (9.4-12.4); Platelet Count 155 K/uL (130-400); RDW Coefficient of Variation 12.9 % (11.5-14.5); RDW Standard Deviation 46.6 fL (36.4-46.3); White Blood Count 9.77 K/ul (4.8-10.8)
[2022-05-31 07:41] LABS: BUN Creatinine Ratio 31.7 (10-20); Calcium 8.4 mg/dl (8.5-10.1); Creatinine Clr Calc Pharmacy 73.9 ml/min; Est GFR (Non-African American) 87.1 ml/min; Magnesium 2.1 mg/dl (1.7-2.4); Potassium 4.5 mmol/L (3.5-5.1)
--- NOTE | 2022-05-31 08:31 | Hospitalist Progress Note ---
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 Influenza A, Mild COPD Exacerbation Patient reporting approximately 24 hours worth of worsening upper and lower respiratory symptoms prior to presenting to the ER, subsequently found to be influenza A positive upon arrival to [facility] ER Suspect that most of his symptoms at present (tachypnea, increased sputum production, increased work of breathing) is primarily secondary to COPD exacerbation from influenza A-- CXR did not demonstrate any evidence of secondary bacterial PNA Supplemental oxygen as needed to maintain SPO2 over 89% (Currently on 2 L NC at 97%) Tamiflu X 5 days was ordered since symptoms < 48 hours Given that he has a mild degree of COPD exacerbation to continue: DuoNebs 4 times daily SKYLER Azithromycin X 5 days Prednisone 40 mg daily X 5 days Mucinex 1200 mg twice daily Flutter valve, incentive spirometry Continuous pulse oximetry Continue home inhaler Admit to monitored bed with airborne precautions (2) Confusion: Plan: Encephalopathy Per HPI, Patient's reported approximately 1 day worth of mild confusion at home (such as using the computer to perform basic tasks) as well as significant fatigue in the setting of acute respiratory symptoms CT of the head did not demonstrate any acute processes Review of labs did not reveal any significant metabolic abnormalities Primarily suspect due to COPD exacerbation/influenza/mild hypoxemia Seems to be resolved at this point. Will monitor. (3) COPD (chronic obstructive pulmonary disease): Plan: Stage IIID COPD Management as above Follows with [facility] pulmonology Continue home inhalers (4) CAD in [place] artery: Plan: CAD / HTN / HLD Follows with Dr. Watts - [facility] Cardiology Cath in 05/2017 revealing 80% stenosis of LAD -- s/p ARIEL x 2 Continue statin, clopidogrel, hydrochlorothiazide, metoprolol Plan Code: Full code Diet: Heart healthy Prophylaxis: Lovenox Dispo: [facility] Admission and Anticipated Discharge Date Admission Date: May 29, 2022 Subjective Patient was awake sitting up in bed and states he is continuing to feel better. He emerson any chest pain or dyspnea. He states his lips are dry and he had some congestion through the night. He states he does get improvement after nebulizer treatments. He continues on 2 Liters of O2. Will need a 2 step tomorrow to assess his oxygen demands going forward. Review of Systems Constitutional: + chills and + fatigue; no fever and no body aches Eyes: no blind spots, no diplopia and no eye pain Ear, Nose, Mouth, Throat: + nasal congestion, + nasal discharge and + post nasal drip; no epistaxis and no sinus pain/pressure Respiratory: + cough, + chest congestion, + change in sputum and + sputum production; no hemoptysis Cardiovascular: no chest pain, no palpitations, no syncope and no edema Gastrointestinal: no abdominal pain, no nausea, no vomiting and no pain with swallowing Genitourinary: no dysuria, no nocturia or no flank pain Neurologic: + generalized weakness; no falls and no syncope Physical Exam Constitutional: WD/WN, vitals as above ENMT: external ear and nose normal, oropharynx normal Neck: trachea midline, no thyromegaly Respiratory: + uses accessory muscles, + cough, able to speak in complete sentences and + prolonged expiratory phase; no nasal flaring, no tripod positioning and no stridor Auscultation: + diminished lung sounds and + wheezes (expiratory wheezes bilaterally) Cardiovascular: RRR, no murmur, no edema Extremities: no edema Gastrointestinal (Abdomen): normal bowel sounds, soft, nontender, no hepatosplenomegaly Skin: no rashes, warm and dry Results & Data Results & Data ([facility]) Vital Signs (Past 12 Hours) Vital Signs Temp Pulse Pulse Resp BP BP Pulse Ox 05/31/22 07:48 36.9 C 100 H 18 129/82 95 05/31/22 07:21 96 H 18 95 05/31/22 03:27 97 H 18 104/68 97 05/31/22 02:52 36.5 C 96 H 20 95/68 L 94 05/31/22 00:50 83 20 96 05/30/22 22:05 71 05/30/22 23:01 36.7 C 80 16 113/76 95 05/30/22 21:46 O2 Del Method O2 Flow Rate 05/31/22 07:48 Nasal Cannula 2 05/31/22 07:21 Nasal Cannula 2 05/31/22 03:27 Nasal Cannula 2 05/31/22 02:52 Nasal Cannula 2 05/31/22 00:50 Nasal Cannula 2 05/30/22 22:05 05/30/22 23:01 Nasal Cannula 2 05/30/22 21:46 Nasal Cannula 3 Laboratory Results Abnormal lab results 05/31/22 05/31/22 Range/Units 06:51 06:51 RBC 4.50 L (4.63-6.08) M/uL RDW Std Deviation 46.6 H (36.4-46.3) fL Carbon Dioxide 33 H (21-32) mmol/L BUN 26 H (6-23) mg/dl BUN/Creatinine Ratio 31.7 H (10-20) Calcium 8.4 L (8.5-10.1) mg/dl PG Care Time/CCT Total # of Minutes Spent Total Time Spent with Patient: Total time spent is greater than 50% in coordination of care (as documented) at patient's floor/unit and/or counseling patient: Coding Level of Care Code 55018 Subseq Hosp Care Lvl 3 Diagnoses Influenza A J10.1 Confusion R41.0 COPD (chronic obstructive pulmonary disease) J44.9 CAD in [place] artery I25.10 Time Spent (min) 20
[2022-05-31] MEDS: CLOPIDOGREL BISULFATE 75 MG TAB PO SCH (09:49)
[2022-05-31] MEDS: guaiFENesin 600 MG TABCR PO SCH ×2 (09:49→20:09)
[2022-05-31] MEDS: CETIRIZINE HCL 10 MG TABLET PO SCH (09:50)
[2022-05-31] MEDS: predniSONE 20 MG TAB PO SCH (09:50)
[2022-05-31] MEDS: OSELTAMIVIR PHOSPHATE 75 MG CAP PO SCH ×2 (09:50→20:10)
[2022-05-31] MEDS: MONTELUKAST SODIUM 10 MG TABLET PO SCH (09:50)
[2022-05-31] MEDS: ATORVASTATIN 40 MG TAB PO SCH (09:51)
[2022-05-31] MEDS: hydroCHLOROthiazide 25 MG TAB PO SCH (09:51)
[2022-05-31] MEDS: METOPROLOL TARTRATE 50 MG TAB PO SCH ×2 (09:52→20:09)
[2022-05-31] MEDS: FLUTICASONE FUROATE 100MCG 14 PUFFS/INHALER INH SCH (09:53)
[2022-05-31] MEDS: FLUTICASONE PROPIONATE NA SPR 16 GM BTL SCH (09:53)
[2022-05-31] MEDS: UMECLIDINIUM/VILANTEROL 62.5/25MCG 7 PUFFS/INHALER INH SCH (09:54)
[2022-05-31] MEDS: ENOXAPARIN INJ 40 MG/0.4 ML SYR SQ SCH (20:08)
[2022-05-31] MEDS: AZITHROMYCIN 250 MG TAB PO SCH (20:09)
[2022-06-01] MEDS: ALBUT/IPRATROP 3MG/0.5MG NEB 3 ML VIAL INH SCH ×4 (01:07→19:18)
[2022-06-01 06:30] LABS: Hematocrit (blood only) 41.4 % (40.1-51.0); Mean Corpuscular Hemoglobin 32.4 pg (25.0-34.0); Mean Corpuscular Hgb Conc 33.8 g/dL (32.0-36.0); Mean Corpuscular Volume 95.8 fL (80.0-100.0); Mean Platelet Volume 9.5 fL (9.4-12.4); Platelet Count 153 K/uL (130-400); RDW Coefficient of Variation 12.6 % (11.5-14.5); RDW Standard Deviation 45.1 fL (36.4-46.3); Red Blood Count 4.32 M/uL (4.63-6.08); White Blood Count 6.66 K/ul (4.8-10.8)
[2022-06-01 06:54] LABS: Calcium 8.2 mg/dl (8.5-10.1); Creatinine Clr Calc Pharmacy 80.8 ml/min; Est GFR (African American) 104.7 ml/min; Est GFR (Non-African American) 90.4 ml/min; Magnesium 1.9 mg/dl (1.7-2.4); Potassium 4.2 mmol/L (3.5-5.1)
--- NOTE | 2022-06-01 08:10 | Hospitalist Progress Note ---
Date of Service June 01, 2022 Assessment & Plan (1) Influenza A: Plan: 76-year-old male with a history of stage IIID COPD (on 2L at night only), CAD, hypertension, aortic aneurysm who presented to [facility] for evaluation of shortness of breath, subsequently found to have Influenza A and features of a mild COPD exacerbation. Influenza A, Mild COPD Exacerbation Patient reporting approximately 24 hours worth of worsening upper and lower respiratory symptoms prior to presenting to the ER, subsequently found to be influenza A positive upon arrival to [facility] ER Suspect that most of his symptoms at present (tachypnea, increased sputum production, increased work of breathing) is primarily secondary to COPD exacerbation from influenza A-- CXR did not demonstrate any evidence of secondary bacterial PNA Supplemental oxygen as needed to maintain SPO2 over 89% (Currently on 2 L NC at 97%) Tamiflu X 5 days was ordered since symptoms < 48 hours Given that he has a mild degree of COPD exacerbation to continue: DuoNebs 4 times daily SKYLER Azithromycin X 5 days Prednisone 40 mg daily X 5 days Mucinex 1200 mg twice daily Flutter valve, incentive spirometry Continuous pulse oximetry Continue home inhaler Admit to monitored bed with airborne precautions 2 step Oxygen testing today revealed patient will need 2 Liters with exertion (2) Confusion: Plan: Encephalopathy Per HPI, Patient's reported approximately 1 day worth of mild confusion at home (such as using the computer to perform basic tasks) as well as significant fatigue in the setting of acute respiratory symptoms CT of the head did not demonstrate any acute processes Review of labs did not reveal any significant metabolic abnormalities Primarily suspect due to COPD exacerbation/influenza/mild hypoxemia Seems to be resolved at this point. Will monitor. (3) COPD (chronic obstructive pulmonary disease): Plan: Stage IIID COPD Management as above Follows with [facility] pulmonology Continue home inhalers (4) CAD in [place] artery: Plan: CAD / HTN / HLD Follows with Dr. Watts - [facility] [place] 05/2017 revealing 80% stenosis of LAD -- s/p ARIEL x 2 Continue statin, clopidogrel, hydrochlorothiazide, metoprolol Plan Code: Full code Diet: Heart healthy Prophylaxis: Lovenox Dispo: [facility] Admission and Anticipated Discharge Date Admission Date: May 29, 2022 Subjective Patient was awake sitting up in bed and states he is continuing to feel better. He denies any chest pain or dyspnea. Patient had a 2 step test this afternoon that revealed he will need 2 Liters of oxygen with exertion. Review of Systems Constitutional: + chills and + fatigue; no fever and no body aches Eyes: no blind spots, no diplopia and no eye pain Ear, Nose, Mouth, Throat: + nasal congestion, + nasal discharge and + post nasal drip; no epistaxis and no sinus pain/pressure Respiratory: + cough, + chest congestion, + change in sputum and + sputum production; no hemoptysis Cardiovascular: no chest pain, no palpitations, no syncope and no edema Gastrointestinal: no abdominal pain, no nausea, no vomiting and no pain with swallowing Genitourinary: no dysuria, no nocturia or no flank pain Neurologic: + generalized weakness; no falls and no syncope Physical Exam Constitutional: WD/WN, vitals as above ENMT: external ear and nose normal, oropharynx normal Neck: trachea midline, no thyromegaly Respiratory: + uses accessory muscles, + cough, able to speak in complete sentences and + prolonged expiratory phase; no nasal flaring, no tripod positioning and no stridor Auscultation: + diminished lung sounds and + wheezes (expiratory wheezes bilaterally) Cardiovascular: RRR, no murmur, no edema Extremities: no edema Gastrointestinal (Abdomen): normal bowel sounds, soft, nontender, no hepatosplenomegaly Skin: no rashes, warm and dry Results & Data Results & Data ([facility]) Vital Signs (Past 12 Hours) Vital Signs Temp Pulse Pulse Resp BP Pulse Ox O2 Del Method 06/01/22 07:44 89 20 95 Nasal Cannula 06/01/22 03:17 36.9 C 78 18 123/82 98 Nasal Cannula 06/01/22 01:07 64 18 95 Nasal Cannula 05/31/22 22:10 67 05/31/22 23:33 Room Air 05/31/22 23:14 37 C 94 H 18 119/73 94 Nasal Cannula 05/31/22 20:27 89 18 96 Nasal Cannula O2 Flow Rate 06/01/22 07:44 2 06/01/22 03:17 2 06/01/22 01:07 1 05/31/22 22:10 05/31/22 23:33 1 05/31/22 23:14 1 05/31/22 20:27 1 Laboratory Results Abnormal lab results 06/01/22 06/01/22 Range/Units 06:10 06:10 RBC 4.32 L (4.63-6.08) M/uL Carbon Dioxide 35 H (21-32) mmol/L Anion Gap 2 L (3-11) BUN/Creatinine Ratio 28.0 H (10-20) Calcium 8.2 L (8.5-10.1) mg/dl PG Care Time/CCT Total # of Minutes Spent Total Time Spent with Patient: Total time spent is greater than 50% in coordination of care (as documented) at patient's floor/unit and/or counseling patient: Coding Level of Care Code 30308 Subseq Hosp Care Lvl 1 Diagnoses Influenza A J10.1 Confusion R41.0 COPD (chronic obstructive pulmonary disease) J44.9 CAD in [place] artery I25.10 Time Spent (min) 20
[2022-06-01] MEDS: CLOPIDOGREL BISULFATE 75 MG TAB PO SCH (08:27)
[2022-06-01] MEDS: CETIRIZINE HCL 10 MG TABLET PO SCH (08:27)
[2022-06-01] MEDS: guaiFENesin 600 MG TABCR PO SCH ×2 (08:27→21:53)
[2022-06-01] MEDS: OSELTAMIVIR PHOSPHATE 75 MG CAP PO SCH ×2 (08:27→21:53)
[2022-06-01] MEDS: METOPROLOL TARTRATE 50 MG TAB PO SCH ×2 (08:27→21:51)
[2022-06-01] MEDS: MONTELUKAST SODIUM 10 MG TABLET PO SCH (08:27)
[2022-06-01] MEDS: ATORVASTATIN 40 MG TAB PO SCH (08:27)
[2022-06-01] MEDS: predniSONE 20 MG TAB PO SCH (08:27)
[2022-06-01] MEDS: FLUTICASONE FUROATE 100MCG 14 PUFFS/INHALER INH SCH (08:28)
[2022-06-01] MEDS: FLUTICASONE PROPIONATE NA SPR 16 GM BTL SCH (08:28)
[2022-06-01] MEDS: UMECLIDINIUM/VILANTEROL 62.5/25MCG 7 PUFFS/INHALER INH SCH (08:28)
[2022-06-01] MEDS: ENOXAPARIN INJ 40 MG/0.4 ML SYR SQ SCH (21:53)
[2022-06-01] MEDS: AZITHROMYCIN 250 MG TAB PO SCH (21:57)
[2022-06-02] MEDS: ALBUT/IPRATROP 3MG/0.5MG NEB 3 ML VIAL INH SCH ×3 (00:18→13:21)
[2022-06-02] MEDS: predniSONE 20 MG TAB PO SCH (08:18)
[2022-06-02] MEDS: MONTELUKAST SODIUM 10 MG TABLET PO SCH (08:18)
[2022-06-02] MEDS: guaiFENesin 600 MG TABCR PO SCH (08:18)
[2022-06-02] MEDS: hydroCHLOROthiazide 25 MG TAB PO SCH (08:18)
[2022-06-02] MEDS: OSELTAMIVIR PHOSPHATE 75 MG CAP PO SCH (08:18)
[2022-06-02] MEDS: UMECLIDINIUM/VILANTEROL 62.5/25MCG 7 PUFFS/INHALER INH SCH (08:19)
[2022-06-02] MEDS: CETIRIZINE HCL 10 MG TABLET PO SCH (08:19)
[2022-06-02] MEDS: CLOPIDOGREL BISULFATE 75 MG TAB PO SCH (08:19)
[2022-06-02] MEDS: ATORVASTATIN 40 MG TAB PO SCH (08:19)
[2022-06-02] MEDS: METOPROLOL TARTRATE 50 MG TAB PO SCH (08:19)
[2022-06-02] MEDS: FLUTICASONE FUROATE 100MCG 14 PUFFS/INHALER INH SCH (08:19)
[2022-06-02] MEDS: FLUTICASONE PROPIONATE NA SPR 16 GM BTL SCH (08:20)
--- NOTE | 2022-06-02 11:59 | Discharge Summary ---
Date of Service June 02, 2022 Admission HPI Per Admitting Provider 76-year-old male with a history of stage IIID COPD (2L at night only), CAD, hypertension, aortic aneurysm who presented to [facility] for evaluation of confusion and respiratory symptoms. His contributes to the history. She said that over the past day, he has not been himself. He has been significantly more fatigued and less interactive than usual. Normally he is "up and add it "and very tech savvy, but he was confused on the computer today when performing normal functions. The patient does tell me that he was notably more short of breath last night compared to usual. He also felt like he had a lot of chest and sinus congestion. He used a pulse oximeter at home, and he said the oxygen levels were anywhere from 75-90+ percent. He said that his heart rate was in the 120s, which was unusual for him. He denied any chest pain, palpitations, shortness of breath. Before this, he otherwise felt in his normal health. 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 He believes that he may have gotten sick from this. He denies any recent long car rides, airplane rides, or periods of immobility. He denies any new calf pain or swelling. In the ER, patient was found to be tachycardic to 109 and febrile to 30 7.7C. He was saturating 95% on 2 L. Labs demonstrate white count 10.1 with lymphopenia and monocytosis. BUN 23/creatinine 0.85. LFTs normal. Influenza A positive, COVID-negative, RSV negative. His chest x-ray demonstrated advanced emphysema without additional acute processes. He was given an hour-long DuoNeb's treatment as well as 60 of methylprednisolone. Admission Exam Per Admitting Provider General: 76-year old male who appears tachypneic, but in no acute distress HEENT: NCAT. - Eyes - Sclera are white, anicteric, and without injection. - Mouth - MMM - Neck - supple, no appreciable JVD Cardiac: Tachycardic with regular rhythm; S1 and S2 present with no murmurs, rubs, or gallops. Pulmonary: Increased respiratory effort with symmetric expansion of the chest. Tachypnea is noted. Very mild conversational dyspnea. Exam of the lungs reveals diminished lung sounds throughout with expiratory wheezes scattered on both the left and right sides. Coarse breath sounds are appreciated at the bases. Abdominal: Normoactive bowel sounds. Abdomen was soft, nondistended, and non- tender to palpation. Extremities: Upper and lower extremities are warm and well perfused. 1+ peripheral edema in the lower extremities bilaterally Psych: Well-developed, well-nourished, appropriately dressed for occasion. Behavior is cooperative and appropriate. Affect is WNL. Insight is appropriate. Principal Diagnosis influenza A Discharge Exam Constitutional WD/WN, vitals as above ENMT external ear and nose normal, oropharynx normal Neck trachea midline, no thyromegaly Respiratory able to speak in complete sentences and + prolonged expiratory phase; does not use accessory muscles, no cough, no nasal flaring, no tripod positioning and no stridor Auscultation: + diminished lung sounds and + wheezes (expiratory wheezes bilaterally) Cardiovascular RRR, no murmur, no edema Extremities: no edema Gastrointestinal (Abdomen) normal bowel sounds, soft, nontender, no hepatosplenomegaly Skin no rashes, warm and dry Discharge Data Allergies Allergy/AdvReac Type Severity Reaction Status Date / Time ticagrelor [From Brilinta] Allergy shortness Verified 05/29/22 20:18 of breath Consultations 05/29/22 19:34 ED Decision to Admit Stat Ordered Studies 05/29/22 18:16 CT head/brain wo con Stat Hospital Course (1) Influenza A: 76-year-old male with a history of stage IIID COPD (on 2L at night only), CAD, hypertension, aortic aneurysm who presented to [facility] for evaluation of shortness of breath, subsequently found to have Influenza A and features of a mild COPD exacerbation. Influenza A, Mild COPD Exacerbation Patient reporting approximately 24 hours worth of worsening upper and lower respiratory symptoms prior to presenting to the ER, subsequently found to be influenza A positive upon arrival to [facility] ER Suspect that most of his symptoms at present (tachypnea, increased sputum production, increased work of breathing) is primarily secondary to COPD exacerbation from influenza A-- CXR did not demonstrate any evidence of secondary bacterial PNA Supplemental oxygen as needed to maintain SPO2 over 89% (Currently on 2 L NC at 97%) Tamiflu X 5 days was ordered since symptoms < 48 hours Given that he has a mild degree of COPD exacerbation to continue: DuoNebs 4 times daily SKYLER Azithromycin X 5 days Prednisone 40 mg daily X 5 days Mucinex 1200 mg twice daily Flutter valve, incentive spirometry Continuous pulse oximetry Continue home inhaler Admit to monitored bed with airborne precautions 2 step Oxygen testing today revealed patient will need 2 Liters with exertion (2) Confusion: Encephalopathy Per HPI, Patient's reported approximately 1 day worth of mild confusion at home (such as using the computer to perform basic tasks) as well as significant fatigue in the setting of acute respiratory symptoms CT of the head did not demonstrate any acute processes Review of labs did not reveal any significant metabolic abnormalities Primarily suspect due to COPD exacerbation/influenza/mild hypoxemia Seems to be resolved at this point. Will monitor. - no further episode of encephalopathy (3) COPD (chronic obstructive pulmonary disease): Stage IIID COPD Management as above Follows with [facility] pulmonology Continue home inhalers (4) CAD in [place] artery: CAD / HTN / HLD Follows with Dr. Watts - [facility] [place] Cardiology Cath in 05/2017 revealing 80% stenosis of LAD -- s/p ARIEL x 2 Continue statin, clopidogrel, hydrochlorothiazide, metoprolol Plan Code: Full code Diet: Heart healthy Prophylaxis: Lovenox Dispo: MST Total Time Total Time Spent Total Time Spent (In Minutes): 35 Discharge Plan Discharge Items Patient Disposition: Home - Self-Care Reason For Visit: INFLUENZA, COPD Discharge Diagnosis: Influenza A Condition on Discharge: Good Activity: Resume your previous activity Lifting: Gradually increase as tolerated Exercise/Sports: Gradually increase as tolerated Driving/Machine Use: Resume 1 day after discharge Weightbearing: Full weightbearing Non-emergency contact: Primary Care Provider Call non-emergency contact if: you have any medication questions, your symptoms worsen and your rectal temperature is above 100.4 Follow-up/Referrals: Manny Tejada DO [Primary Care Provider] - 06/06/22 10:30 am Diet: Heart Healthy Addtl Attending Provider Instructions: You were admitted with Influnza A and were treated with Tamiflu, steroids and antibiotics. You also received supplemental oxygen. You had a 2 step oxygen test done yesterday that revealed you will need 2 liters while exertion and also to continue your 2 liters at night. You will need to get 2 prescriptions at [facility] One is prednisone and take 2 pills tomorrow morning the other is for Tamiflu and take one pill tonight and one tomorrow morning. You should follow up with your family doctor in 1-2 weeks and they can reassess your oxygen needs/status. Pending Studies at Discharge: No Stand-Alone Forms: My [facility] Medications and DC Order Prescriptions: New oseltamivir [Tamiflu] 75 mg Capsule 75 mg PO BID Qty: 2 0RF Rx Instructions: you will need one pill tonight and one pill tomorrow 06/03/22 in the AM prednisone 20 mg Tablet 40 mg PO QAM Qty: 2 0RF Rx Instructions: Take 2 pills tomorrow AM with food Continued hydrochlorothiazide 12.5 mg tablet 12.5 mg PO Q OTHER DAY Qty: 45 3RF atorvastatin 80 mg tablet 80 mg PO DAILY Qty: 90 3RF metoprolol tartrate 50 mg tablet 50 mg PO BID Qty: 60 11RF clopidogrel 75 mg tablet 75 mg PO DAILY Qty: 90 3RF (DME) Oxygen Home Liters Per Minute See Dose Instructions .ROUTE .MEDSUPPLY Qty: 1 Rx Instructions: 2 l/m VIA NASAL CANULA AT BEDTIME multivitamin tablet 1 tab PO DAILY albuterol sulfate 90 mcg/actuation HFA aerosol inhaler 2 puffs inhalation Q4H PRN (Reason: shortness of breath or wheezing) Qty: 18 0RF calcium carbonate-vitamin D3 500 mg(1,250mg) -125 unit tablet 1 tab PO BID Qty: 30 0RF cetirizine 10 mg tablet 10 mg PO DAILY Qty: 30 0RF montelukast 10 mg tablet 10 mg PO DAILY Qty: 30 0RF echinacea 500 mg capsule 1,520 mg PO DAILY Label Comments: Pt taking 2 760 mg tablets once daily nitroglycerin 0.4 mg tablet, sublingual 0.4 mg SL Q5M PRN (Reason: chest pain) Qty: 20 3RF sodium fluoride-pot nitrate 1.1-5 % paste 1 applic PO HS Rx Instructions: USE AFTER REGULAR BRUSHING, THEN DO NOT RINSE, DRINK OR EAT AFTER. Discharge Orders: Discharge Order (Routine); Ordered 06/02/22 Ordered By: Dominique Saha Admission Data Admit Date/Time: 05/29/22 19:44 Attending Provider: Maravilla,Jovan J. Admit Provider: Vishal Rodriguez Primary Care Provider: Manny Tejada Other Providers: Fracisco Blount Other Interventions: Discharge Summary Assessment (RN) Last Done: 06/02/22 12:15 Supervising Physician Co-Signing Physician Notes I supervised Dominique Saha PA-C on this patient's care. I interviewed and examined the patient independently of her. The plan is as written in the note except for any following changes/exceptions: None 76yo M w/ COPD who presents with flu and COPD exacerbation. On Tamiflu in the hospital. Doing well. Minimal wheezing on exam. Feels well and reports he can complete ADLs safely at home. Discharge. Coding Level of Care Code D/C DAY MANAGEMENT >30 MINS Diagnoses Influenza A J10.1 Confusion R41.0 COPD (chronic obstructive pulmonary disease) J44.[address] [place] I25.10 Time Spent (min) 34
== END 2022-06-02 14:46 | disposition home or self-care (01) | DRG 194 ==
LOC: ED 17:06 → SUATTDRO 19:44 → 2W 19:44

== ENCOUNTER 2024-04-21 09:12 | Inpatient (IN) ==
--- NOTE | 2024-04-13 14:56 | Anesthesiology Consultation ---
Date of Service April 13, 2024 Assessment & Plan (1) Encounter for pre-operative examination: Chart Review Chart Review: Acceptable Risk for Surgery and Patient NOT seen in Pre Admission Testing -Pt seen by Cardiology for routine f/u 02/03/24: "The patient is stable from a cardiovascular standpoint. He demonstrates excellent control of his blood pressure both at home and in the office today. His cholesterol values are also well-controlled. He was commended on his active lifestyle and walking program. He will meet with Dr. Jorgensen next month regarding his abdominal aneurysm. Fortunately, his coronary artery disease remains quiescent on his current me dical regimen. Highly complex medical issues were managed and discussed today." -Pt seen by Pulmonology for preoperative clearance 04/08/24. Per note, "stable respiratory functional status... Pt is cleared for proposed endovascular intervention with moderate to high risk for perioperative cardiopulmonary complication. Intended benefit outweighs the inherent risk. Perioperative pulmonary evaluation is also recommended" -Pt seen by PCP 04/01/24; "patient cleared as an optimal risk for surgery" Infectious Disease screening: Per PAT nursing assessment on 04/13/24, No known infectious disease contacts in past 10 days or current infectious disease symptoms. No recent travel outside the country. History Surgery Operation Date: 04/21/24 07:30 Proposed Procedures p Endovascular Repair of Abdominal Aortic Aneurysm Repair with Anchors - Kirill Jorgensen MD Height/Weight Height: 5 ft 7 in Weight: 67.132 kg Allergies Allergy/AdvReac Type Severity Reaction Status Date / Time ticagrelor [From Brilinta] Allergy shortness Verified 04/13/24 13:00 of breath Medications Home Medications Medication Instructions Recorded Confirmed Last Taken Oxygen Home #1 ea 11/17/18 04/01/24 Unknown albuterol sulfate 90 mcg/actuation 2 puffs inhalation Q4H PRN 11/17/18 04/13/24 10/29/22 07:15 aerosol inhaler shortness of breath or wheezing #18 grams multivitamin 1 tab PO QAM 11/17/18 04/13/24 10/28/22 echinacea 500 mg capsule 1,500 mg PO QAM 06/29/21 04/13/24 10/28/22 sodium fluoride 1.1 %-potassium 1 applic PO HS 05/29/22 04/13/24 10/28/22 nitrate 5 % dental paste miscellaneous medical supply See Rx Instructions miscellaneous 06/04/22 04/13/24 Unknown .COMPLEX #1 ea fluticasone fur. 100 mcg-umeclid 1 inh inhalation QAM 06/20/22 04/13/24 10/28/22 62.5 mcg-vilant 25 mcg inhalat.powder (Trelegy Ellipta) furosemide 20 mg tablet 20 mg PO DAILY PRN edema #30 tabs 06/20/22 04/13/24 Unknown Flutter Valve #2 ea 09/03/22 04/01/24 Unknown aspirin 81 mg chewable tablet 81 mg PO QPM 10/21/22 04/13/24 10/28/22 cetirizine 10 mg tablet 10 mg PO QAM 10/23/22 04/13/24 10/28/22 montelukast 10 mg tablet 10 mg PO QPM 10/23/22 04/13/24 10/28/22 potassium chloride 20 mEq 20 meq PO UD PRN WHEN USING LASIX 10/23/22 04/13/24 Unknown tablet,extended release calcium 500 mg (as 1 tab PO DAILY 01/15/23 04/13/24 Unknown carbonate)-vitamin D3 3.125 mcg (125 unit) tablet tamsulosin 0.4 mg capsule 0.4 mg PO DAILY #90 caps 04/11/23 04/13/24 Unknown clopidogrel 75 mg tablet 75 mg PO QAM #90 tabs 05/29/23 04/13/24 Unknown nitroglycerin 0.4 mg sublingual 0.4 mg sublingual Q5M PRN chest 07/22/23 04/13/24 Unknown tablet pain #20 tabs metoprolol tartrate 50 mg tablet 75 mg (1.5 x 50 mg) PO BID #270 09/05/23 04/13/24 Unknown tabs atorvastatin 80 mg tablet 80 mg PO QPM #90 tabs 10/28/23 04/13/24 Unknown cholecalciferol (vitamin D3) 125 125 mcg PO DAILY 04/13/24 04/13/24 Unknown mcg (5,000 unit) tablet (Vitamin D3) guaifenesin 1,200 mg tablet, 1,200 mg PO BID 04/13/24 04/13/24 Unknown extended release 12 hr (Mucinex) [id number] 5 mg-zeaxanth 1 cap PO QAM 04/13/24 04/13/24 Unknown 1 mg-bilberry 7.5 mg-herbal capsule ([employer] Formula) Past Medical History Medical History Aortic aneurysm AAA, 5.1cm 12/2023 BPH (benign prostatic hyperplasia) CAD [place] NSTEMI, LAD ARIEL x 2, 05/2017 Chronic hypoxemic respiratory failure follows with pulm; last seen 04/08/24; per note, stable and using O2 HS only Chronic obstructive pulmonary disease severe; follows with pulm; per 02/13/24 note "chronic hypoxemic respiratory failure" Environmental allergies History of cardiac arrhythmia frequent PVCs; follows w/ Dr Watts History of pneumonia 10 YEARS AGO, [facility] TOLD PT TO USE O2 AT NIGHT HTN (hypertension) Hypercholesteremia Inguinal hernia left, monitoring Left ventricular diastolic dysfunction NSTEMI (non-ST elevated myocardial infarction) 05/2017 [facility]: NSTEMI: CARDIAC CATH, 2 ARIEL LAD; F/U DR. WATTS, [facility] On home oxygen therapy USES 2L O2 NIGHT; PRN DURING THE DAY Peripheral edema prn lasix Peripheral vascular disease AAA, 5.1cm 12/2023 Pulmonary nodule monitored with chest CT Tobacco use 40 pack year hx; quit 2013 Past Family History Family History Other No pertinent family history Denies family history of Ovarian cancer Prostate cancer Myocardial infarction Breast cancer Colorectal cancer Past Surgical History Surgical History (Updated 04/13/24 @ 14:44 by Carlita Lawton PA-C) History of cardiac cath 05/2017 [facility], 2 ARIEL LAD; F/U DR. WATTS History of cholecystectomy History of heart artery stent 05/2017 [facility], 2 ARIEL LAD; F/U DR. WATTS Hx of colonoscopy Social History Smoking Status: Former smoker tobacco type: cigarettes Do You Dip or Chew Tobacco: No Smoking End Date: quit 10 yrs ago Hx Alcohol Use: No Hx Substance Use: No substance use type: does not use Lab Results Anesthesia Preop Results Results Anesthesia Widget: WBC 6.92 K/ul (4.8-10.8) 04/02/24 Hgb 15.6 g/dl (14.0-18.0) 04/02/24 Hct 45.4 % (42.0-52.0) 04/02/24 Plt 194 K/uL (130-400) 04/02/24 Na 139 mmol/L (136-145) 04/02/24 K 3.9 mmol/L (3.5-5.1) 04/02/24 Cl 101 mmol/L (98-107) 04/02/24 CO2 31 mmol/L (21-32) 04/02/24 BUN 19 mg/dl (6-23) 04/02/24 Creat 0.84 mg/dl (0.6-1.4) 04/02/24 Glucose Level 102 mg/dl (70-99(Fasting)) H 04/02/24 PT 11.0 Seconds (9.0-12.0) 04/02/24 PTT 28 Seconds (21-31) 04/02/24 INR 1.0 (0.9-1.1) 04/02/24 Blood Type A Positive 04/02/24 Antibody Screen NEGATIVE 04/02/24 Testing Electrocardiogram Date: 04/01/24 Findings: + NSR @ (73bpm) Echocardiogram Date: 07/17/22 EF: 55-60% RWMA: + none Gr I DD. borderline cLVH. No significant valve disease. No signifcant change from 2017 study. Cardiac Catheterization Date: 05/30/17 1. Severe single vessel CAD (80% early-mid stenosis) 2. Normal intracardiac filling pressure 3. Successful PCI of proximal to mid LAC with 2 overlapping ARIEL Other Testing 03/11/24 CTA abd/pelvis: Infrarenal aortic aneurysm measures 51 mm in diameter., It measured 30 mm in the 2016 ultrasound. Correlation with outside hospital ultrasounds, if available, recommended. 11/21/[address]: 1. LungRADS Category 3: Positive. Indeterminate, probably benign finding requiring CT chest imaging f/u. Resolution of the previous 2 new pulmonary n odules. 2. LungRADS Category S: Negative. No new/unknoen potentially significant incidental findings requiring urgent additional evaluation. 3. Other incidental findings as above. Timekeeper Supervisor (28day) 09/09/22: 1. NSR throughout 2. No atrial ectopy 3. Frequent PVCs (7%) 4. No afib 5. No diary entries
--- NOTE | 2024-04-21 08:42 | History & Physical Report ---
Date of Service April 21, 2024 Assessment & Plan (1) Aortic aneurysm: Plan: Patient admitted for a pevar of his aaa. I have discussed the risks options and benefits of the procedure with the patient. The patient understands the risks options and benefits and agrees to the procedure. History of Present Illness Chief Complaint: AAA Primary Care Provider: Manny Tejada DO Mr. 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 He is was found to have an abdominal aortic aneurysm approximately 3 years ago. It has been stable at 4.3 cm for 2 years. This year's ultrasound showed up and grown to 5.1 cm in size. He is asymptomatic at this time from his aneurysm. He has no complaints of claudication and he has no complaints of cerebrovascular sufficiency. He does have a cardiac history with stents placed 5 years ago. He has been asymptomatic since then. He also has a history of hypertension. He was a smoker previously but quit in 2014. Allergies Allergy/AdvReac Type Severity Reaction Status Date / Time ticagrelor [From Brilinta] Allergy shortness Verified 04/13/24 13:00 of breath Home Medications Medication Instructions Recorded Confirmed Type Oxygen Home #1 ea 11/17/18 04/01/24 History albuterol sulfate 90 mcg/actuation 2 puffs inhalation Q4H PRN 11/17/18 04/13/24 Rx aerosol inhaler shortness of breath or wheezing #18 grams multivitamin 1 tab PO QAM 11/17/18 04/13/24 History echinacea 500 mg capsule 1,500 mg PO QAM 06/29/21 04/13/24 History sodium fluoride 1.1 %-potassium 1 applic PO HS 05/29/22 04/13/24 History nitrate 5 % dental paste miscellaneous medical supply See Rx Instructions miscellaneous 06/04/22 04/13/24 Rx .COMPLEX #1 ea fluticasone fur. 100 mcg-umeclid 1 inh inhalation QAM 06/20/22 04/13/24 History 62.5 mcg-vilant 25 mcg inhalat.powder (Trelegy Ellipta) furosemide 20 mg tablet 20 mg PO DAILY PRN edema #30 tabs 06/20/22 04/13/24 Rx Flutter Valve #2 ea 09/03/22 04/01/24 Rx aspirin 81 mg chewable tablet 81 mg PO QPM 10/21/22 04/13/24 History cetirizine 10 mg tablet 10 mg PO QAM 10/23/22 04/13/24 History montelukast 10 mg tablet 10 mg PO QPM 10/23/22 04/13/24 History potassium chloride 20 mEq 20 meq PO UD PRN WHEN USING LASIX 10/23/22 04/13/24 History tablet,extended release calcium 500 mg (as 1 tab PO DAILY 01/15/23 04/13/24 History carbonate)-vitamin D3 3.125 mcg (125 unit) tablet clopidogrel 75 mg tablet 75 mg PO QAM #90 tabs 05/29/23 04/13/24 Rx nitroglycerin 0.4 mg sublingual 0.4 mg sublingual Q5M PRN chest 07/22/23 Rx tablet pain #20 tabs metoprolol tartrate 50 mg tablet 75 mg (1.5 x 50 mg) PO BID #270 09/05/23 04/13/24 Rx tabs atorvastatin 80 mg tablet 80 mg PO QPM #90 tabs 10/28/23 04/13/24 Rx cholecalciferol (vitamin D3) 125 125 mcg PO DAILY 04/13/24 04/13/24 History mcg (5,000 unit) tablet (Vitamin D3) guaifenesin 1,200 mg tablet, 1,200 mg PO BID 04/13/24 04/13/24 History extended release 12 hr (Mucinex) [id number] 5 mg-zeaxanth 1 cap PO QAM 04/13/24 04/13/24 History 1 mg-bilberry 7.5 mg-herbal capsule (Macular Health Formula) tamsulosin 0.4 mg capsule 0.4 mg PO DAILY #90 caps 04/15/24 Rx Past Med/Surg History Problem List BPH (benign prostatic hyperplasia) Aortic aneurysm MONITORING>GETS CHECKED EVERY 6 MONTHS Inguinal hernia LEFT SIDE-MONITORING Abnormal chest CT pulm nodules being monitored Arrhythmia COPD (chronic obstructive pulmonary disease) (Acute) Left inguinal hernia Vitamin B12 deficiency Fatigue Trigger finger Vitamin D deficiency Impaired fasting glucose Peripheral edema Benign essential hypertension (Acute) CAD in red devil artery (Chronic) Hypercholesterolemia (Chronic) Left ventricular diastolic dysfunction, NYHA class 1 (Acute) Stage 4 very severe COPD by GOLD classification (Chronic) Medical History Pulmonary nodule monitored with chest CT Chronic hypoxemic respiratory failure follows with pulm; last seen 04/08/24; per note, stable and using O2 HS only Tobacco use 40 pack year hx; quit 2013 Peripheral vascular disease AAA, 5.1cm 12/2023 Left ventricular diastolic dysfunction Hypercholesteremia CAD in red devil artery NSTEMI, LAD ARIEL x 2, 05/2017 HTN (hypertension) Peripheral edema prn lasix Inguinal hernia left, monitoring Aortic aneurysm AAA, 5.1cm 12/2023 BPH (benign prostatic hyperplasia) History of cardiac arrhythmia frequent PVCs; follows w/ Dr Nuñez Chronic obstructive pulmonary disease severe; follows with pulm; per 02/13/24 note "chronic hypoxemic respiratory failure" On home oxygen therapy USES 2L O2 NIGHT; PRN DURING THE DAY History of pneumonia 10 YEARS AGO, [facility] TOLD PT TO USE O2 AT NIGHT Environmental allergies NSTEMI (non-ST elevated myocardial infarction) 05/2017 [facility]: NSTEMI: CARDIAC CATH, 2 ARIEL LAD; F/U DR. NUÑEZ, [facility] [place] Surgical History Hx of colonoscopy History of heart artery stent 05/2017 [facility], 2 ARIEL LAD; F/U DR. NUÑEZ History of cardiac cath 05/2017 [facility], 2 ARIEL LAD; F/U DR. NUÑEZ History of cholecystectomy Family History Other No pertinent family history Denies family history of Ovarian cancer Prostate cancer Myocardial infarction Breast cancer Colorectal cancer Social History Smoking Status: Former smoker Tobacco Type: Cigarettes Age Started Using Tobacco: 21; Age Quit Using Tobacco: 68; packs per day: 1; Smoking End Date: quit 10 yrs ago; Second Hand Exposure: Yes (HX GROWING UP); Do You Dip or Chew Tobacco: No; Tobacco Cessation Education Requested by Patient: No Hx Alcohol Use: No Hx Substance Use: No Preferred Language: Polish Communication Ability: Effective Visual Impairment: Limited Hearing Ability: Normal 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 Required: No Beliefs That Will Affect Care: None marital status: Current Living Situation: Spouse current occupational status: employed How many Children do You have: 2 Other Information That Helps Us Care for You: No Feels Safe at Home: Yes Safety Concerns: Feels Safe At This Time Childhood Exposure to Second-Hand Smoke: Yes Diet: regular caffeine: Yes during the past year weight has: decreased > 10 lbs Dental Care, Regularly: Yes Physical Activity Frequency: 3-4 Times per Week Seatbelt Use: always Sunscreen Use: Yes Do you think of yourself as: straight/heterosexual Gender Identity: Male Assistive Devices: Glasses and Oxygen - at Night Review of Systems All systems reviewed & are unremarkable except as noted in HPI & below Physical Exam Physical Exam: On exam he is awake alert and oriented x 3. He is in no apparent distress. His blood pressure is 104/70 on the left and 96/70 on the right. His radials and carotids are +2 bilaterally. He has no carotid bruits. Lungs are clear. Heart had a regular rate and rhythm. Abdominal exam is benign. There is a widened aortic pulse in the mid epigastrium. Femorals and pedal pulses are +2 bilaterally. There is mild bilateral lower extremity edema. Neuro exam is intact to motor and sensory function
[~2024-04-21 09:12] MED LIST changes: -ASPI81TA28 PO; -AZITTAB PO; -BRL90 PO; -CETI10TA84 PO; +DEXAMETHASONE SOD INJ 4 MG/ML VIAL ONE; -ECHI80CA PO; +HEPARIN SOD (PORCINE) 1000 UNIT/ML ONE; +LIDOCAINE 2% 2 ML VIAL/AMP(20MG/ML) INFIL ONE; -LOSA25TA18 PO; -LPT40 PO; -METO100T14 PO; -METO50TA16 PO; +MIDAZOLAM HCL 1 MG/ML 2ML VIAL ONE; -MONT1TAB3 PO; -MULT-506 PO; -NTRSLP4 SL; +ONDANSETRON INJ 2 MG/ML 2 ML VIAL ONE; -OXGN; -PRED10TA PO; +PROPOFOL IV EMULSION 10 MG/ML 20 ML VIAL IV ONE; +PROTAMINE SULFATE 10 MG/ML 5 ML VIAL IV ONE; +ROCURONIUM BROMIDE 10 MG/ML 5 ML VIAL IV ONE; +SODIUM CHLORIDE 0.9% 100 ML IV PRN; +SODIUM CHLORIDE 0.9% 50 ML IV PRN; -UMEC1AER INH; -VNTHFA/IN INH; +fentaNYL citrate PF 100 MCG/2 ML VIAL ONE
[2024-04-21] MEDS: LR 15ML/HR IV SCH (10:41)
--- NOTE | 2024-04-21 11:25 | History & Physical Bridge Note ---
Date of Service April 21, 2024 History & Physical Bridge Note I have examined the patient, reviewed the History & Physical and in the interval since the performance of the History & Physical I have noted the following changes of clinical significance: no changes noted
[2024-04-21] MEDS: CEFAZOLIN 2,000 MG/15 ML SYR IV SCH (11:30)
[2024-04-21] MEDS ORDERED: ROCURONIUM BROMIDE 10 MG/ML 5 ML VIAL IV ONE ×5 (11:50)
[2024-04-21] MEDS ORDERED: ePHEDrine sulfate 50 MG/5 ML SYR ONE (11:55)
[2024-04-21] MEDS ORDERED: PHENYLEPHRINE 100MCG/ML 5ML SYR ONE (11:55)
[2024-04-21] MEDS ORDERED: HEPARIN SOD (PORCINE) 1000 UNIT/ML ONE (11:58)
[2024-04-21] MEDS ORDERED: SUGAMMADEX SODIUM 200 MG/2 ML VIAL IV ONE (13:00)
[2024-04-21] MEDS: ARISTA ABSORBABLE HEMOSTAT 3GM TOP ONE (13:11)
[2024-04-21] MEDS: VISIPAQUE IV PRN (13:13)
[2024-04-21] MEDS ORDERED: METOPROLOL TARTRATE 1 MG/ML VIAL IV ONE (13:25)
--- NOTE | 2024-04-21 13:31 | Procedure Note ---
Angiogram Post Procedure Fluoroscopy Time (minutes): 19.6 Radiation (mGy): 247 Contrast: 119 Post Operative Report Pre & Post Diagnosis Operation Date: 04/21/24 10:50 Pre-Op Diagnosis: Abdominal Aortic Aneurysm Post-Op Diagnosis: Abdominal Aortic Aneurysm I identified the patient and participated in the time-out.: Yes Procedure Operation Date: 04/21/24 10:50 Actual Procedures p Endovascular Repair of Abdominal Aortic Aneurysm,Insertion of Endo Anchors,Mechanical Closure of Bilateral Femoral Arteries(Bilateral) - Kirill Jorgensen MD Surgeon Kirill Jorgensen MD Ict Sales Representative Brando,PAC Estimated Blood Loss 100 Findings Consistent with Post-Op Diagnosis Specimens none Anesthesia Type General Complications none Disposition Accompanied Patient To Recovery: No Disposition: Recovery Room Indications This is a 78-year-old gentleman with a large abdominal aortic aneurysm. Repair was recommended. He was a candidate for a endovascular approach. I have discussed the risks options and benefits of the procedure with the patient. The patient understands the risks options and benefits and agrees to the procedure. Description of Procedure The patient was brought to the OR and placed in supine position. Patient was intubated and general anesthesia was accomplished. A safety timeout was performed to identify patient's name, date of and the correct procedure. Abdomen and groins were prepped and draped in sterile fashion. Ultrasound guided percutaneous access of the right groin was performed. The right common femoral artery was patent. A percutaneous puncture was made in the right common femoral artery using ultrasound. The depth finder for the Manta device was used to measure the depth of the puncture. It was found to be 3 cm. The depth finder was removed and the 8 Turkish sheath inserted. We turned our attention to the right side and we similarly accessed the left common femoral artery. The left common femoral artery was patent. Using ultrasound left common femoral artery was punctured. The depth finder was used to measure the depth of the puncture of the left side and also found to be 2.5 cm from the skin edge. This was removed and 8 Turkish sheath was inserted. Patient was heparinized with 8000 of IV heparin. Through the right groin, we advanced a soft Glidewire followed by a Kumpe catheter. The wire then was exchanged for a Lunderquist wire. We then cannulated the aorta from the left side using 035 Glidewire and a Kumpe catheter. Once this was placed in the super renal aorta the wire was exchanged to a Lunderquist wire.. We then upsized our access on the right side with a 14 Turkish dilator and subsequently to 18 Turkish dry seal sheath. The left groin sheath was then exchanged to a 12 Turkish dry seal sheath. The sheaths were advanced all the way up in the aortic sac. A marker pig was inserted to the l t groin. Aortography was performed. The level of the renal arteries were marked on the screen. This showed patency of both renal arteries and a acceptable neck for deployment of the graft. We advanced the device (Beccaria excluder conformable 28.5 mm x 14.5 mm x 12 cm) through the right sheath. The shaft of the graft was then deployed. An aortogram was performed. Both renal arteries were visualized just above the top of the deployed graft. Aortogram confirmed good location of the proximal end of the graft. The hooks were then deployed. Cannulation of the gate was then accomplished using an 035 glidewire and a Kumpke catheter. The wire spun easily in the neck of the graft. The 035 Glidewire was removed and a Lunderquist wire was reinserted. A marker pigtail was then inserted over the Lunderquist wire. The 12 Turkish sheath was then pulled down into the external iliac and an arteriogram was performed of the left iliac system. This identified the origin of the hypogastric and the left side. We then removed the pigtail. We reinserted a 12 Turkish sheath dilator and advanced the sheath into the gate of the graft. Prior to inserting the contralateral limb we deployed the ipsilateral limb to complete the deployment of the graft. The device was then removed from the right groin. We then inserted an 16mm x 14.5 mm x 12 contralateral limb. The 12 Turkish sheath was th en pulled down to below the level of the contralateral limb. Contralateral limb was then deployed without difficulty. The 18 Turkish sheath on the right side was then pulled down into the pelvis. Hand-injection was then performed to ellis where the bifurcation of the common iliac artery was. We then chose a 16 x 14.5 x 12 contralateral limb to extend the right side limb. The graft was advanced to the 18 Turkish sheath. It was deployed with the distal end falling just above the iliac bifurcation. The MOB balloon was then inserted through the left sheath. The proximal attachment site, the gate and the distal attachment site were ballooned with the MOB balloon. The balloon was then removed. Was inserted through the right side 18 Turkish sheath and then dilated the overlap of the limbs and the distal attachment site of the right limb. The balloon was then removed. The pigtail was then inserted through the left side to above the renal arteries. This arteriogram showed the possibility of a small little type I endoleak at the upper portion of the graft. We then reinserted the mob balloon and we dilated this area. After this was completed we inserted the sheath for the Endo anchors. We then deployed 4 Endo anchors within the shaft of the graft at approximately 90 degrees angles to each other. The device was then removed. A final arteriogram was then performed which showed no evidence of a type I endoleak. Graft showed no evidence of narrowing throughout. An Lunderquist wire was then reinserted into the pigtail and the pigtail removed. The 12 Turkish sheath was then pulled and a 14 Turkish Manta device was inserted. This was deployed without difficulty. No bleeding was noted after deployment. The right groin sheath was then also pulled. An 18 Turkish Manta device was inserted and deployed. No evidence of bleeding was seen on the right side either. Sterile dressings were applied to the wounds.The patient left the operation room in satisfactory condition and tolerated the procedure well. All needle and sponge counts were correct at the end of the procedure. Ana Delvalle Pac assisted due to lack of resident availability and was necessary for positioning, draping, retraction, wound closure deep layers, subcutaneous tissue, and skin closure and was necessary for assisting with the case. I attest to the content of the Intraoperative Record and any orders documented therein. Any exceptions are noted below.
[2024-04-21 14:11] LABS: Hematocrit (blood only) 39.8 % (42.0-52.0); Hemoglobin 13.6 g/dl (14.0-18.0)
[2024-04-21] MEDS ORDERED: POTASSIUM CHLORIDE CRTAB 20 MEQ TABCR PO PRN (14:49)
[2024-04-21] MEDS ORDERED: NON-FORMULARY MEDICATION (Miscellaneous Medical Supply misc) MS SCH (14:49)
[2024-04-21] MEDS ORDERED: NITROGLYCERIN SL 0.4 MG/TAB TAB SL PRN (14:49)
[2024-04-21] MEDS ORDERED: FUROSEMIDE 20 MG TAB PO PRN (14:49)
--- NOTE | 2024-04-21 15:02 | Anesthesiology Progress Note ---
Date of Service April 21, 2024 Anesthesia Post Procedure Vital Signs Vital Signs: Temp Pulse Pulse Pulse Resp BP BP 04/21/24 14:52 71 04/21/24 14:30 76 18 114/60 04/21/24 14:20 36.4 C L 77 16 112/77 04/21/24 14:10 76 16 111/78 04/21/24 14:00 80 16 113/77 04/21/24 13:50 80 18 107/77 04/21/24 13:40 82 16 117/84 04/21/24 13:32 36.4 C L 81 16 130/88 04/21/24 09:53 36.5 C 64 18 139/97 BP Pulse Ox O2 Del Method O2 Flow Rate 04/21/24 14:52 04/21/24 14:30 112/59 L 97 Nasal Cannula 2 04/21/24 14:20 111/58 L 98 Nasal Cannula 2 04/21/24 14:10 118/62 96 Oxymask 4 04/21/24 14:00 115/60 96 Oxymask 4 04/21/24 13:50 116/60 97 Oxymask 4 04/21/24 13:40 113/60 98 Oxymask 4 04/21/24 13:32 114/59 L 96 Oxymask 6 04/21/24 09:53 94 Room Air Transfer of Care Handoff Completed per policy Notes Mental Status: alert / awake / arousable Patient Amnestic to Procedure: Yes Nausea / Vomiting: adequately controlled Pain: adequately controlled Airway Patency, RR, SpO2: stable & adequate BP & HR: stable & adequate Hydration State: stable & adequate Anesthetic Complications: no major complications apparent and Pt Satisfied with anesthetic care
[2024-04-21] MEDS: LACTATED RINGER'S 1,000 ML IV SCH (15:17)
--- OUTSIDE RECORDS SUMMARY | 2024-04-21 16:44 | External Medical Summary | Summary of Care ---
Author Name Unknown Organization [facility] Address [address] [facility] [place] [address] Phone [phone] Care Team Providers Care Curtain Inspector Name Role Phone Manny Tejada DO Primary Care Provi delmy Reason for Visit * Reason Comments Follow Up Encounter Details Date Type Department Care Team (Latest Contact Info) Description 04/08/2024 11:20 AM EDT Office Visit Pulmonary Medicine, [facility] [address] [facility] [place] [phone] Kwesi Thompson MD [address] [facility] [place] [id number] COPD, group D, by GOLD 2017 classification (FORMERLY [facility])* Allergies Active Allergy Reactions Criticality Noted Date Comments Ticagrelor Other (Please comment) High 02/17/2019 (Brilinta), Shortness of breath documented as of this encounter (statuses as of 04/08/2024) Medications Medication Sig Dispensed Refills Start Date End Date Status ZYRTEC 10 MG PO TABS one tab by mouth daily 34 5 10/05/2007 Active DAILY VALUE MULTIVITAMIN PO TABS None Entered Ac tive oxygen GAS 2 LPM via NC with exertion and during hours of sleep. 1 Each 10/03/2017 Active atorvaSTATin (LIPITOR) 80 MG Tablet Take 1 Tablet by mouth in the morning. Active Aspirin 81 MG Tablet Take 1 Tablet by mouth in the morning. Active metoprolol succinate XL (TOPROL XL) 50 MG TB24 Take 1 Tablet by mouth in the morning and 1 Tablet before bedtime. Active guaiFENesin ER 600 MG Oral Tablet Extended Release 12 Hour Take 1 Tablet by mouth in the morning and 1 Tablet before bedtime. Active clopidogrel (PLAVIX) 75 MG Tablet Take 1 Tablet by mouth in the morning. Active azithromycin (ZITHROMAX) 250 MG TabletIndications:BAND LEADER D, severe (HCC),COPD exacerbation (HCC) COPD, take when instructed by Pulm. TAKE TWO TABLETS BY MOUTH TODAY, AND THEN ONE TABLET DAILY 6 Tab 10/21/2018 Active Additional Information Patient taking differently: Rescue-COPD, take when instructed by Pulm. TAKE TWO TABLETS BY MOUTH TODAY, AND THEN ONE TABLET DAILY, Reported on 09/19/2020 Fluticasone Propionate 50 MCG/ACT Nasal Suspension Administer 2 Sprays into each nostril in the morning. 1 Bottle 5 08/18/2019 Active PreserVision AREDS 2+Multi Vit Oral Capsule Take by mouth daily. Active predniSONE 20 MG Oral Tablet (Deltasone) COPD RESCUE - TAKE 2 TABLETS BY MOUTH DAILY FOR 5 DAYS. TAKE WITH FOOD IN THE MORNING. 10 Tablet 10/24/2022 Active Additional Information Patient not taking.Reported on 04/08/2024 Montelukast Sodium 10 MG Oral Tablet (Singulair)Indication s:COPD, group D, by GOLD 2017 classification (FORM[facility]LY [facility]),Chronic hypoxemic respiratory failure (HCC) TAKE 1 TABLET BY MOUTH ONCE DAILY IN THE EVENING 90 Tablet 3 06/24/2023 Active Trelegy Ellipta 100-62.5-25 MCG/ACT Aerosol Powder Breath Activated (Fluticasone-Umeclidi nium-Vilanterol) INHALE 1 PUFF ONCE DAILY RINSE MOUTH AFTER USE 180 Each 3 01/27/2024 Active Albuterol Sulfate HFA 108 (90 Base) MCG/ACT Inhalation Aerosol SolutionIndications:C OPD, group D, by GOLD 2017 classification ([facility]ERLY [facility]) INHALE 2 PUFFS BY MOUTH EVERY 4 HOURS NEEDED FOR SHORTNESS OF BREATH, COUGH, OR WHEEZING 18 g 4 03/26/2024 Active Azelastine HCl 0.1 % Nasal Solution (Astelin) Administer 1 [place] into nostril in the morning and 1 [place] before bedtime. 30 mL 12 04/08/2024 Active Hospital, Clinic, or Other Facility Administered Medication Ordered Dose Route Frequency Start Date End Date Status albuterol sulfate (PROVENTIL) (2.5 MG/3ML) 0.083% inhalation solution 2.5 mgIndications:COPD, severe (HCC) 2.5 mg NEBULIZER Q4H PRN 08/15/2017 Active documented as of this encounter (statuses as of 04/08/2024) Active Problems Problem Noted Date Diagnosed Date AAA (abdominal aortic aneurysm) 07/10/2021 Overview: 4.[address] Chest 05/21/21 Hx of actinic keratosis 05/30/2020 Overview: actinic keratoses (face 05/2020) Chronic hypoxemic respiratory failure 02/13/2018 Pulmonary nodule 02/13/2018 NSTEMI (non-ST elevated myocardial infarction) 1 07/30/2016 History of tobacco use 09/08/2013 COPD, group D, by GOLD 2017 classification 10/04 Overview: PER COPD PROTOCOL #24. 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/2004 documented as of this encounter (statuses as of 04/08/2024) Resolved Problems Problem Noted Date Diagnosed Date Resolved Date COPD exacerbation 03/13/2012 04/28/2012 COPD with emphysema 10/05/2007 04/28/20 12 Bacterial pneumonia 10/05/2007 11/15/19 08 documented as of this encounter (statuses as of 04/08/2024) Immunizations Name Administration Dates Next Due COVID-19 mRNA, LNP-s, No Pre serve, 2-Dose Series (9GAG) 2021,03/14/2021,09/02/2020,08/12 COVID-19, LNP-s, No Preserve , Inocente-sucrose, Ages 12+ (9GAG) 2021 Covid-19, Mrna, Lnp-s, Pf, B ivalent, 30 Mcg, IM, 12 yrs and above (9GAG) 04/09/2022 Pneumococcal Conjugate Vacc, 13 Valent (Prevnar) 06/23/2014 Pneumococcal Conjugate Vacci ne, 20-valent ([id number]) 12/05/2022 Pneumococcal Conjugate Vacci ne, 7 Valent 06/23/2014 Pneumococcal Polysaccharide PPV23 (Pneumovax) 12/16/2012 RSV Vac., Recomb, Adjuvant, PF,0.5 Ml (Arexvy) 05/23/2023 Seasonal Influenza Vac., MDV , IM, 0.5 mL (Fluzone) 04/01/2023,03/28/2015,04/02/2014,04/22,04/16/2012 Seasonal Influenza Virus Vac cine, Unspecified Formulation 04/16/2019 Seasonal Influenza, High Dos e, Trivalent, PF, IM (Fluzone HD) 04/01/2019,02/27/2018 Seasonal Influenza, Quadriva lent Hd (Fluzone Hd) 04/01/2024 Seasonal Influenza, Quadriva lent, No Preserve, IM 02/26/2017 Seasonal Influenza, Trivalen t, Adjuvanted, 65+ YRS, PF, (Fluad) 03/16/2021,03/16/2020 TDAP (age 10 and older)(Boostrix) 07/17/2016 Varicella Zoster Vaccine (Adult) 08/26/2014 Zoster Vaccine Recombinant (Shingrix) 08/04/2019 ,02/11/2019 documented as of this encounter Social History Tobacco Use Types Packs/Day Years Used Date Smoking Tobacco: Former Cigarettes 1 40 0 09/24/1973 - 09/24/2013 Smokeless Tobacco: Never Alcohol Use Standard Drinks/Week Comments No 0 (1 standard drink = 0.6 oz pur e alcohol) Utilities Answer Date Recorded Do you have trouble paying y our heating, water, or electric bill? (Adult - for ages 18 years and over) Not on file 12/02/2023 Is your family able to pay t he heat, water, or electric bill? (Household - for ages 0-17 years) Not on file 12/02/2023 Does your family have access to good internet? (Household - for ages 0-17 years) Not on file 12/02/2023 Social Connections Answer Date Recorded How often do you feel lonely or isolated from those around you? (Adult - for ages 18 years and over) Not on file 12/02/2023 Sex and Gender Information Value Date Recorded Sex Assigned at Not on file Gender Identity Not on file Sexual Orientation Not on file Job Start Date Occupation Industry Not on file Not on file Not on file documented as of this encounter Last Filed Vital Signs Vital Sign Reading Time Taken Comments Blood Pressure 104/62 04/08/2024 11:17 AM EDT Pulse 109 04/08/2024 11:17 AM EDT Temperature 36.5 C (97.7 F) 04/08/2024 11:17 AM E DT Respiratory Rate 20 04/08/2024 11:17 AM EDT Oxygen Saturation 93% 04/08/2024 11:19 AM EDT ra, amb Inhaled Oxygen Concentration - - Weight 67.5 kg (148 lb 12 oz) 04/08/2024 11:17 A M EDT Height 170.2 cm (5' 7") 04/08/2024 11:17 AM EDT Body Mass Index 23.3 04/08/2024 11:17 AM EDT documented in this encounter Progress Notes * Kwesi Thompson MD - 04/08/2024 11:32 AM EDT Images from the original note were not included. 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 Cough: occasional, clear phlegm Hemoptysis: no Sinus Symptoms: congestion Hospitalizations: no ED Trips: no Triggers: cold weather, very hot weather Nocturnal: no problems CPAP/BiPAP/O2: O2 2LPM every night for 8-9 hrs Flu Vaccine: 2019 Pneumovax: 2013 Prevnar: 2015 COVID 19: 08/12/20, 09/02/20 Pulmonary Medications: Trelegy daily, rinsing after Ventolin as needed with benefit AYR saline Guaifenesin daily Flonase daily when needed (winter months) Montelukast daily Zyrtec daily Oxygen: ordered 2 LPM with exertion and qhs, used qhs Physical examination: Alert, awake, no distress Class 3 throat No JVD Adequate air entry, prolonged expiratory phase with minimal wheezing, no dullness S1, S2, no murmur Soft, nontender abdomen No lower extremity edema Nonlateralizing Neuro examination Assessment / Plan: Preop evaluation Vascular Surgical Repair of AAA (scheduled 04/21 2024) Pt is cleared for proposed endovascular intervention with Moderate to high risk for perioperative cardiopulmonary complication. Intended benefit outweighs the inherent risk. Perioperative Pulmonary evaluation is also recommended. Add Astelin Nasal [place] C/w Trelegy and Rescue Albuterol F/u 8 weeks Follow-up: Return in about 2 months (around 06/08/2024). | Check-out note: Preop Vascular Surgical Repair of AAA (scheduled 04/21 2024) Pt is cleared for proposed endovascular intervention with Moderate to high risk for perioperative cardiopulmonary complication. Intended benefit outweighs the inherent risk. Perioperative Pulmonary evaluation is also recommended. Add Astelin Nasal [place] C/w Trelegy and Rescue Albuterol F/u 8 weeks Kwesi Thompson MD Data review: Following reports, and data as outlined below was personally reviewed and interpreted by myself. LUNG SCREENING CT THORAX (LOW DOSE) WITHOUT CONTRAST HISTORY: Follow nodules TECHNIQUE: Noncontrast low-dose CT (LDCT) chest per standard departmental protocol. COMPARISON: 08/21/2023 FINDINGS: Chest: Lack of IV contrast and low-dose technique limit evaluation of the mediastinal structures and great vessels. The heart is normal in size. There are atherosclerotic calcifications of the thoracic aorta and coronary arteries. There are no enlarged mediastinal, hilar or axillary lymph nodes. Findings consistent with pulmonary emphysema are again noted. Bilateral peribronchial thickening isagain noted. There is an irregular subpleural nodule in the lateral left upper lobe measuring 0.6 x 1.3 cm, stable (series 10, image [id number]). There is a stable tiny juxtapleural nodule along the left major fissure (series 10, image 193). Resolution of prior new irregular nodule in the superior segment of the left lower lobe measuring 0.8 x 1.0 cm. There is a stable irregular nodule in the posterior right upper lobe measuring 0.8 cm (series 10, image 92). Resolution of prior new irregular nodule in the right middle lobe measuring 0.9 cm. Upper abdomen: Lack of IV contrast limits evaluation of the upper abdominal viscera. The liver is normal in size. The gallbladder is absent. The pancreas is partially seen. The spleen is normal in size. The right adrenal gland is unremarkable. There is a stable small left adrenal nodule, likely an adrenal adenoma. The right kidney is slightly smaller than the left kidney, similar to the prior exam. An abdominal aortic aneurysm is again noted measuring up to 4.8 cm on this exam, partially seen. Bones: The bones are osteopenic. There are moderate degenerative changes of the visualized spine. There is mild compression deformity of the superior endplate of L1 vertebral body, stable. IMPRESSION IMPRESSION: 1. LungRADS Category 3: Positive. Indeterminate, probably benign finding requiring CT chest imagingfollow-up. Resolution of the previous 2 new pulmonary nodules 2. LungRADS Category S: Negative. No new/unknown potentially significant incidental findings requiring urgent additional evaluation. 3. Other incidental findings as above. BMI 25. Flow loop obstructive. Spirometry is mixed with severe obstruction. There is no significant bronchodilator response. Lung volumes with evidence of hyperinflation ruling out true restriction. Additionally there is evidence of air trapping. DLCO uncorrected for hemoglobin is severely reduced. Compared to prior PFT from 09/2017 there has been no significant change.This interpretation has been electronically signed: Cameron Myles 02/05/2022 11:29:56 AM Subjective CC: Chief Complaint Patient presents with Follow Up HPI: Nursing Notes: Neela Garcia LPN 04/08/24 1124 Addendum Pt is here for f/u COPD. Interm History/Respiratory Symptoms Cough: rare, slight yellow phlegm Hemoptysis: no Sinus Symptoms: "constant congestion", uses Singulair and Zyrtec; his eye doctor advised him not touse nasal spray Hospitalizations: no ED Trips: no Triggers: exertion, dust Nocturnal: no problems CPAP/BiPAP/O2: O2 2LPM at night and as needed with exertion DME Supplier: [facility] Flu Vaccine: 2023 Pneumovax: 2012 Prevnar: 2014 COVID 19: x6 Mmrc Cat Question 04/02/2024 4:30 PM EDT - Filed by Patient When do you become breathless? (2) On level ground, I walk slower than people of the same age because of breathlessness or have to stop for breath when walking at my own pace How frequently do you cough? (1) Do you have phlegm in your chest? (1) Is your chest tight? (0) - My chest does not feel tight at all How breathless do you become when walking up a hill or steps? (4) How limited are you doing activities at home? (3) How confident are you leaving home with your lung condition? (0) - I am confident leaving my home despite my condition How soundly do you sleep? (0) - I sleep soundly How much energy do you have? (2) Total MMRC Score (range: 0 - 4) 2 Total CAT Score (range: 0 - 40) 11 Flu Vaccine Questionnaire Question 04/02/2024 4:30 PM EDT - Filed by Patient Get your flu shot at your upcoming appointment. Please select one of the options below. I already received my flu shot Copd Rescue Question 04/02/2024 4:32 PM EDT - Filed by Patient Have you used an antibiotic (e.g., azithromycin, doxycycline, augmentin) in the last 12 months because of your breathing or lung problem? No Have you added or increased the dose of a steroid (e.g., prednisone, solumedrol) in the last 12 months because of your breathing or lung problem? Yes, once Did you go to the ED, or were you hospitalized in the last 12 months because of your breathing or lung problem? No Objective Filed Vitals: 04/08/24 1117 04/08/24 1119 BP: 104/62 Pulse: 109 Resp: 20 Temp: 36.5 C (97.7 F) TempSrc: Tympanic SpO2: 93% 93% Weight: 67.5 kg (148 lb 12 oz) Height: 1.702 m (5' 7") Exam: Const: No signs of acute distress present. Head/Face: Normal on inspection. Eyes: Conjunctivae clear. Pupils equal round and reactive to light. ENMT: Oropharynx: No erythema, exudate or masses. Posterior pharynx is normal. Neck: Supple and symmetric. Resp: Respiratory examination as outlined above CV: Rate is regular. Rhythm is regular. No heart murmur appreciated. Extremities: No edema of the lower limbs bilaterally. Skin: Skin is warm and dry. Neuro: Coordination normal. No involuntary movement. Psych: Patient's attitude is cooperative. Mood is normal. Affect is normal. Tests reviewed with the patient: CT CHEST LUNG CANCER SCREEN 3 OR 6 MONTH FOLLOW UP Result Date: 11/27/2023 IMPRESSION: 1. LungRADS Category 3: Positive. Indeterminate, probably benign finding requiring CT chest imaging follow-up. Resolution of the previous 2 new pulmonary nodules 2. LungRADS Category S: Negative. No new/unknown potentially significant incidental findings requiring urgent additional evaluation. 3. Other incidental findings as above. RECOMMENDATIONS: Management of the significant lung nodule(s) will be done by the Lung Cancer Screening Program (Pulmonary/Thoracic Surgery review to determine next step). Available Radiologic data was reviewed by me in PACS. The images were shown to the patient and findings were discussed with the patient. HOME MEDICATIONS: Azelastine HCl 0.1 % Nasal Solution (Astelin) Albuterol Sulfate HFA 108 (90 Base) MCG/ACT Inhalation Aerosol Solution Trelegy Ellipta 100-62.5-25 MCG/ACT Aerosol Powder Breath Activated (Lnvvgcjbvfk-Jchnnhdtzavv-Lyocuabnze) Montelukast Sodium 10 MG Oral Tablet (Singulair) PreserVision AREDS 2+Multi Vit Oral Capsule clopidogrel (PLAVIX) 75 MG Tablet Aspirin 81 MG Tablet atorvaSTATin (LIPITOR) 80 MG Tablet guaiFENesin ER 600 MG Oral Tablet Extended Release 12 Hour metoprolol succinate XL (TOPROL XL) 50 MG TB24 oxygen GAS DAILY VALUE MULTIVITAMIN PO TABS ZYRTEC 10 MG PO TABS predniSONE 20 MG Oral Tablet (Deltasone) Fluticasone Propionate 50 MCG/ACT Nasal Suspension azithromycin (ZITHROMAX) 250 MG Tablet albuterol sulfate (PROVENTIL) (2.5 MG/3ML) 0.083% inhalation solution 2.5 mg ROS: No reported history of Hemoptysis, Hematemesis, Melena No reported history of Dysuria, Hematuria, Flank Pain No reported history of chronic headache, seizures No reported history of Fall or trauma . No reported history of recent change in weight or appetite. Past Medical History: Diagnosis Date COPD (chronic obstructive pulmonary disease) (HCC) Lung nodule NONE Past Surgical History: Procedure Laterality Date CARDIAC DRUG ELUTING STENT PLACE, SINGLE N/A 05/2017 LAD COLONOSCOPY, DIAGNOSTIC (RECTUM) 01/23/2017 adenomatous polyps, diverticulosis, repeat 3 yrs/[facility] COLONOSCOPY, DIAGNOSTIC (RECTUM) N/A 10/29/2022 severe diverticulosis/biopsies show adenomatous polyps/recall 5 years/Colonoscopy/[place] REMOVE GALLBLADDER 1989 Cholecystectomy, Open Social History Socioeconomic History Marital status: Tobacco Use Smoking status: Former Current packs/day: 0.00 Average packs/day: 1 pack/day for 40.0 years (40.0 ttl pk-yrs) Types: Cigarettes Start date: 09/24/1973 Quit date: 09/24/2013 Years since quittin.5 Smokeless tobacco: Never Vaping Use Vaping status: Never Used Substance and Sexual Activity Alcohol use: No Drug use: No Social History Narrative No pets. No mold. Social Determinants of Health Social Connections Family History Problem Relation Name Age of Onset Lung Disorder Mother ?COPD, smoker Hypertension Mother Other (none) Other pt unaware of family hx skin related ca or disease Other (Natural causes) Father age 92 Hypertension Brother Review of patient's allergies indicates: Allergen Reactions Ticagrelor Other (Please comment) (Brilinta), Shortness of breath documented in this encounter Nursing Notes * Neela Garcia LPN - 04/08/2024 11:14 AM EDT Pt is here for f/u COPD. Interm History/Respiratory Symptoms Cough: rare, slight yellow phlegm Hemoptysis: no Sinus Symptoms: "constant congestion", uses Singulair and Zyrtec; his eye doctor advised him not touse nasal spray Hospitalizations: no ED Trips: no Triggers: exertion, dust Nocturnal: no problems CPAP/BiPAP/O2: O2 2LPM at night and as needed with exertion DME Supplier: [facility] Flu Vaccine: 2023 Pneumovax: 2013 Prevnar: 2014 COVID 19: x6 Mmrc Cat Question 04/02/2024 4:30 PM EDT - Filed by Patient When do you become breathless? (2) On level ground, I walk slower than people of the same age because of breathlessness or have to stop for breath when walking at my own pace How frequently do you cough? (1) Do you have phlegm in your chest? (1) Is your chest tight? (0) - My chest does not feel tight at all How breathless do you become when walking up a hill or steps? (4) How limited are you doing activities at home? (3) How confident are you leaving home with your lung condition? (0) - I am confident leaving my home despite my condition How soundly do you sleep? (0) - I sleep soundly How much energy do you have? (2) Total MMRC Score (range: 0 - 4) 2 Total CAT Score (range: 0 - 40) 11 Flu Vaccine Questionnaire Question 04/02/2024 4:30 PM EDT - Filed by Patient Get your flu shot at your upcoming appointment. Please select one of the options below. I already received my flu shot Copd Rescue Question 04/02/2024 4:32 PM EDT - Filed by Patient Have you used an antibiotic (e.g., azithromycin, doxycycline, augmentin) in the last 12 months because of your breathing or lung problem? No Have you added or increased the dose of a steroid (e.g., prednisone, solumedrol) in the last 12 months because of your breathing or lung problem? Yes, once Did you go to the ED, or were you hospitalized in the last 12 months because of your breathing or lung problem? No documented in this encounter Plan of Treatment Upcoming Encounters Date Type Department Care Team (Late st Contact Info) Description 05/21/2024 10:00 AM EST Imaging Radiology [facility] [address] [facility] [address] [place] [id number] 02/15/2025 10:30 AM EDT Office Visit Sleep Disorders Ctr [facility] [address] [place] [phone] Jaylin Shah CRNP [address] [place] [id number] Scheduled Orders Name Type Priority Associated Diagnoses Orde r Schedule SPIROMETRY B/A BRONCHODILATOR Procedures Routine COPD, group D, by GOLD 2017 classification ([facility]) Expected: 04/15/2024, Expires: 05/09/2025 PULMONARY STRESS TESTING Procedures Routine COPD, group D, by GOLD 2017 classification ([facility]) Expected: 04/09/2024, Expires: 05/09/2025 Scheduled Procedures Name Priority Associated Diagnoses Date/Ti me COLONOSCOPY FLEXIBLE PROXIMA L DIAGNOSTIC Recall History of colonic polyps Health Maintenance Due Date Last Done Comments Depression Screening 1957 AAA Monitoring 11/01/1965 Alpha-1 Antitrypsin 11/01/1965 Hepatitis C Screening 11/01/1965 *ADVANCE DIRECTIVE NOT ON FILE 11/28/2018 COVID-19 Vaccine ( season) 2024 04/09/2022, 2021, 2021, Additional history exists O2 ASSESSMENT COMPLETED IN PAST YEAR FOR COPD 04/08/2025 04/08/2024 DTap/Tdap Vaccines (2 - Td or Tdap) 07/17/2026 07/17/2016 Colonoscopy 10/30/2027 10/29/2022, 01/23/2017 Zoster Vaccines Completed 08/04/2019, 01/15, 08/26/2014 RETIRED - COLONOSCOPY-EVERY 5 YRS AGES 18-100 Discontinued 10/29/2022, 01/23/2017 Pneumococcal Vaccine: 65+ Years Completed 12/05/2022, 06/23/2014, 12/16/2012 Influenza Vaccine (FLU shot) Completed 04/01/2024, 04/01/2023, 03/16/2021, Additional history exists HPV (Gardasil) Vaccine Aged Out No lo nger eligible based on patient's age to complete this topic Hepatitis B Vaccine Aged Out No longe r eligible based on patient's age to complete this topic MENINGOCOCCAL (MENACTRA/MENVEO) Aged Out No longer eligible based on patient's age to complete this topic documented as of this encounter Medical Devices Not on filedocumented as of this encounter Visit Diagnoses Diagnosis COPD, group D, by GOLD 2017 classification ([facility])- Primary documented in this encounter Care Teams Curtain Inspector Relationship Specialty [place] [address] [place] [address] [place] [id number] PCP - General Family Medicine 02/28/22 documented as of this encounter
--- OUTSIDE RECORDS SUMMARY | 2024-04-21 16:44 | External Medical Summary | Summary of Care ---
Author Name Unknown Organization [facility] Address [address] [place] [address] Phone [phone] Care Team Providers Care Ortho Assistant Name Role Phone Manny Tejada DO Primary Care Provi delmy Reason for Visit * Reason Onset Date Comments Fax 04/14/2024 Encounter Details Date Type Department Care Team (Late st Contact Info) Description 04/14/2024 Telephone Access Center, [place] [address] [facility] *DO NOT REMOVE THIS DEPARTMENT* [place] [address] Services, Scheduling [address] [place] [address] Fax Allergies Active Allergy Reactions Criticality Noted Date Comments Ticagrelor Other (Please comment) High 02/17/2019 (Brilinta), Shortness of breath documented as of this encounter (statuses as of 04/14/2024) Medications Medication Sig Dispensed Refills Start Date [...] the morning. Active azithromycin (ZITHROMAX) 250 MG TabletIndications:ATTENDANT LODGING FACILITIES D, severe (HCC),COPD exacerbation ([facility]) COPD, take when instructed by Pulm. TAKE [...] s:COPD, group D, by GOLD 2017 classification ([facility]),Chronic hypoxemic respiratory failure (HCC) TAKE 1 TABLET BY MOUTH ONCE DAILY IN THE EVENING 90 Tablet 3 06/24/2023 Active Trelegy Ellipta 100-62.5-25 MCG/ACT Aerosol Powder Breath Activated (Fluticasone-Umeclidi nium-Vilanterol) INHALE 1 PUFF ONCE DAILY RINSE MOUTH AFTER USE 180 Each 3 01/27/2024 Active Albuterol Sulfate HFA 108 (90 Base) MCG/ACT Inhalation Aerosol SolutionIndications:C OPD, group D, by GOLD 2017 classification ([facility]) INHALE 2 PUFFS BY MOUTH EVERY 4 HOURS NEEDED FOR SHORTNESS OF BREATH, COUGH, OR WHEEZING 18 g 4 03/26/2024 Active Azelastine HCl 0.1 % Nasal Solution (Astelin) Administer 1 [place] into nostril in the morning and 1 [place] before bedtime. 30 mL 12 04/08/2024 Active Hospital, Clinic, or Other Facility Administered Medication Ordered Dose Route Frequency Start Date End Date Status albuterol sulfate (PROVENTIL) (2.5 MG/3ML) 0.083% inhalation solution 2.5 mgIndications:COPD, severe (HCC) 2.5 mg NEBULIZER Q4H PRN 08/15/2017 Active documented as of this encounter (statuses as of 04/14/2024) Active Problems Problem Noted Date Diagnosed Date [...] as of this encounter (statuses as of 04/14/2024) Resolved Problems Problem Noted Date Diagnosed Date Resolved Date COPD exacerbation 03/13/2012 04/28/2012 COPD with emphysema 10/05/2007 04/28/20 12 Bacterial pneumonia 10/05/2007 11/15/19 08 documented as of this encounter (statuses as of 04/14/2024) Immunizations Name Administration Dates Next Due COVID-19 mRNA, LNP-s, No Pre serve, 2-Dose Series ([employer]) 2021,03/14/2021,09/02/2020,08/12 COVID-19, LNP-s, No Preserve , Inocente-sucrose, Ages 12+ ([employer]) 2021 Covid-19, Mrna, Lnp-s, Pf, B ivalent, 30 Mcg, IM, 12 yrs and above ([employer]) 04/09/2022 Pneumococcal Conjugate Vacc, 13 Valent (Prevnar) 06/23/2014 Pneumococcal Conjugate Vacci ne, 20-valent ([id number]) 12/05/2022 Pneumococcal Conjugate Vacci ne, 7 Valent [...] on file documented as of this encounter Miscellaneous Notes * Telephone Encounter - Nuria Lawler LPN - 04/14/2024 12:00 PM EDT Info has been faxed * Telephone Encounter - Dotty Moreno OSA - 04/14/2024 11:28 AM EDT Tammy From [facility] call in Requesting that the notes with Pre-op clearance be fax to them at [phone]. Please advice documented in this encounter Plan of Treatment Upcoming Encounters Date Type Department Care Team (Late st Contact Info) Description 05/21/2024 10:00 AM EST Imaging Radiology [address] [facility] [place] [address] 02/15/2025 10:30 AM EDT Office Visit Sleep Disorders Ctr [facility] [place] [phone] Jaylin Shah CRNP [address] [place] [address] Scheduled Procedures Name Priority Associated Diagnoses Date/Ti [...] Not on filedocumented as of this encounter Care Teams Ortho Assistant Relationship Specialty Start Date End Date Manny Tejada DO [address] [place] [address] [place] [id number] PCP - General Family Medicine 02/28/22 documented as of this encounter
--- OUTSIDE RECORDS SUMMARY | 2024-04-21 16:44 | External Medical Summary | Summary of Care ---
Author Name Unknown Organization [facility] Address [address] [place] [address] Phone [phone] Care Team Providers Care Boat And Plant Utility Supervisor Name Role Phone Manny Tejada DO Primary Care Provi delmy Reason for Visit * Reason Onset Date Comments Fax 04/14/2024 Encounter Details Date Type Department Care Team (Late st Contact Info) Description 04/14/2024 Telephone Access Center, [place] [address] [facility] *DO NOT REMOVE THIS DEPARTMENT* [place] [address] Services, Scheduling [address] [place] [address] Fax Allergies Active Allergy Reactions Criticality Noted [...] the morning. Active azithromycin (ZITHROMAX) 250 MG TabletIndications:HEARING THERAPIST D, severe (HCC),COPD exacerbation ([facility]) COPD, take when instructed by Pulm. TAKE [...] s:COPD, group D, by GOLD 2017 classification ([facility]),Chronic hypoxemic respiratory failure (HCC) TAKE 1 TABLET BY MOUTH ONCE DAILY IN THE EVENING 90 Tablet 3 06/24/2023 Active Trelegy Ellipta 100-62.5-25 MCG/ACT Aerosol Powder Breath Activated (Fluticasone-Umeclidi nium-Vilanterol) INHALE 1 PUFF ONCE DAILY RINSE MOUTH AFTER USE 180 Each 3 01/27/2024 Active Albuterol Sulfate HFA 108 (90 Base) MCG/ACT Inhalation Aerosol SolutionIndications:C OPD, group D, by GOLD 2017 classification ([facility]) INHALE 2 PUFFS BY MOUTH EVERY 4 HOURS NEEDED FOR SHORTNESS OF BREATH, COUGH, OR WHEEZING 18 g 4 03/26/2024 Active Azelastine HCl 0.1 % Nasal Solution (Astelin) Administer 1 [place] into nostril in the morning and 1 [place] before bedtime. 30 mL 12 04/08/2024 Active [...] mRNA, LNP-s, No Pre serve, 2-Dose Series ([employer]) 2021,03/14/2021,09/02/2020,08/12 COVID-19, LNP-s, No Preserve , Inocente-sucrose, Ages 12+ ([employer]) 2021 Covid-19, Mrna, Lnp-s, Pf, B ivalent, 30 Mcg, IM, 12 yrs and above ([employer]) 04/09/2022 Pneumococcal Conjugate Vacc, 13 Valent (Prevnar) 06/23/2014 Pneumococcal Conjugate Vacci ne, 20-valent ([id number]) 12/05/2022 Pneumococcal Conjugate Vacci ne, 7 Valent [...] encounter Miscellaneous Notes * Telephone Encounter - Dotty Moreno OSA - 04/14/2024 11:28 AM EDT [facility] call in Requesting that the notes with Pre-op clearance be fax to them at [phone]. Please advice documented in this encounter Plan of Treatment Upcoming Encounters Date Type Department Care Team (Late st Contact Info) Description 05/21/2024 10:00 AM EST Imaging Radiology [facility] [place] [address] [facility] [place] [address] 02/15/2025 10:30 AM EDT Office Visit Sleep Disorders Ctr [facility] [address] [facility] [place] [phone] Jaylin Shah CRNP [address] [place] [address] Scheduled Procedures Name Priority Associated Diagnoses Date/Ti [...] filedocumented as of this encounter Care Teams Boat And Plant Utility Supervisor Relationship Specialty Start Date End Date Manny Tejada DO [address] [place] [address] [place] [address] PCP - General Family Medicine 02/28/22 documented as of this encounter
--- OUTSIDE RECORDS SUMMARY | 2024-04-21 16:45 | External Medical Summary | Summary of Care ---
Author Name Unknown Organization [facility] Address [address] [place] [address] Phone [phone] Care Team Providers Care Hr Representative Name Role Phone Manny Tejada DO Primary Care Provi delmy Reason for Referral * Evaluate & Treat - Unlimited Visits (Within 10 days (routine)) - Authorized Specialty Diagnoses / Procedures Referred By Contac t Referred To Contact Vascular Surgery Diagnoses Abdominal aortic aneurysm, without rupture, unspecified (HCC) Kirill Jorgensen MD [address] [place] [id number] Referral ID Status Reason Start Date Expiration Date Visits Requested Visits Authorized [id number] Authorized Specialty Services Required [phone] Question Answer Referral Priority Within 10 Days (Routine) Reason for Referral Abdominal Aortic Aneurysm Comments Abdominal aortic aneurysm Encounter Details Date Type Department Care Team (Late st Contact Info) Description 04/02/2024 Orders Only Access Center, [place] [address] [facility] *DO NOT REMOVE THIS DEPARTMENT* [place] [address] Request, External Referral Abdominal aortic aneurysm, without rupture, unspecified (HCC)* Allergies Active Allergy Reactions Criticality Noted Date Comments Ticagrelor Other (Please comment) High 02/17/2019 (Brilinta), Shortness of breath documented as of this encounter (statuses as of 04/02/2024) Medications Medication Sig Dispensed Refills Start Date [...] the morning. Active azithromycin (ZITHROMAX) 250 MG TabletIndications:CAGE MAKER D, severe (HCC),COPD exacerbation ([facility]) COPD, take when instructed by Pulm. TAKE [...] IN THE MORNING. 10 Tablet 10/24/2022 Active Montelukast Sodium 10 MG Oral Tablet (Singulair)Indication s:COPD, group D, by GOLD 2017 classification ([facility]),Chronic hypoxemic respiratory failure (HCC) TAKE 1 TABLET BY MOUTH ONCE DAILY IN THE EVENING 90 Tablet 3 06/24/2023 Active Trelegy Ellipta 100-62.5-25 MCG/ACT Aerosol Powder Breath Activated (Fluticasone-Umeclidi nium-Vilanterol) INHALE 1 PUFF ONCE DAILY RINSE MOUTH AFTER USE 180 Each 3 01/27/2024 Active Albuterol Sulfate HFA 108 (90 Base) MCG/ACT Inhalation Aerosol SolutionIndications:C OPD, group D, by GOLD 2017 classification ([facility]) INHALE 2 PUFFS BY MOUTH EVERY 4 HOURS NEEDED FOR SHORTNESS OF BREATH, COUGH, OR WHEEZING 18 g 4 03/26/2024 Active Hospital, Clinic, or Other Facility Administered Medication Ordered Dose Route Frequency Start Date End Date Status albuterol sulfate (PROVENTIL) (2.5 MG/3ML) 0.083% inhalation solution 2.5 mgIndications:COPD, severe (HCC) 2.5 mg NEBULIZER Q4H PRN 08/15/2017 Active documented as of this encounter (statuses as of 04/02/2024) Active Problems Problem Noted Date Diagnosed Date [...] as of this encounter (statuses as of 04/02/2024) Resolved Problems Problem Noted Date Diagnosed Date Resolved Date COPD exacerbation 03/13/2012 04/28/2012 COPD with emphysema 10/05/2007 04/28/20 12 Bacterial pneumonia 10/05/2007 11/15/19 08 documented as of this encounter (statuses as of 04/02/2024) Immunizations Name Administration Dates Next Due COVID-19 mRNA, LNP-s, No Pre serve, 2-Dose Series ([employer]) 03/14/2021,09/02/2020,08/12/2020 Pneumococcal Conjugate Vacc, 13 Valent (Prevnar) 06/23/2014 Pneumococcal Polysaccharide PPV23 (Pneumovax) 12/16/2012 Seasonal Influenza Vac., MDV , IM, 0.5 mL (Fluzone) 03/28/2015,04/02/2014,04/22/2013,04/16 Seasonal Influenza Virus Vac cine, Unspecified Formulation 04/16/2019 Seasonal Influenza, High Dos e, Trivalent, PF, IM (Fluzone HD) 02/27/2018 Seasonal Influenza, Quadriva lent, No Preserve, IM [...] on file documented as of this encounter Plan of Treatment Upcoming Encounters Date Type Department Care Team (Late st Contact Info) Description 04/08/2024 11:20 AM EDT Office Visit Pulmonary Medicine, [facility] 132 [facility] [place] [address] Kwesi Thompson MD [address] [place] [phone] 05/21/2024 10:00 AM EST Imaging Radiology [address] 132 [facility] [place] [address] 02/15/2025 10:30 AM EDT Office Visit Sleep Disorders Ctr [facility] 132 [facility] [place] [phone] Jaylin Shah CRNP 132 [facility] [place] [address] Scheduled Procedures Name Priority Associated Diagnoses Date/Ti me COLONOSCOPY FLEXIBLE PROXIMA L DIAGNOSTIC Recall History of colonic polyps Scheduled Referrals Name Type Priority Associated Diagnoses Orde r Schedule STAIR ABDOMINAL AORTIC ANEURYSM REFERRAL OP (SYSTEM FOR TRACKING ABNORMALITIES OF IMPORTANCE RELIABLY) Referral Within 10 days (routine) Abdominal aortic aneurysm, without rupture, unspecified (HCC) Ordered: 04/02/2024 Health Maintenance Due Date Last Done Comments Depression Screening 1957 AAA Monitoring 11/01/1965 Alpha-1 Antitrypsin 11/01/1965 Hepatitis C Screening 11/01/1965 *ADVANCE DIRECTIVE NOT ON FILE 11/28/2018 COVID-19 Vaccine ( season) 2024 04/09/2022, 2021, 2021, Additional history exists Influenza Vaccine (FLU shot) (#1) 2024 04/01/2023, 03/16/2021, 03/16/2020, Additional history exists O2 ASSESSMENT COMPLETED IN PAST YEAR FOR COPD 02/12/2025 02/13/2024 DTap/Tdap Vaccines (2 - Td or Tdap) 07/17/2026 07/17/2016 Colonoscopy 10/30/2027 10/29/2022, 01/23/2017 Zoster Vaccines Completed 08/04/2019, 01/15, 08/26/2014 RETIRED - COLONOSCOPY-EVERY 5 YRS AGES 18-100 Discontinued 10/29/2022, 01/23/2017 Pneumococcal Vaccine: 65+ Years Completed 12/05/2022, 06/23/2014, 12/16/2012 HPV (Gardasil) Vaccine Aged Out No lo [...] as of this encounter Visit Diagnoses Diagnosis Abdominal aortic aneurysm, without rupture, unspecified (HCC)- Primary documented in this encounter Care Teams Hr Representative Relationship Specialty Start Date End Date Manny Tejada DO [address] [place] [address] [place] [phone] PCP - General Family Medicine 02/28/22 documented as of this encounter
--- OUTSIDE RECORDS SUMMARY | 2024-04-21 16:45 | External Medical Summary | Summary of Care ---
Author Name Unknown Organization [facility] Address [address] [place] [address] Phone [phone] Care Team Providers Care Inspector Casing Name Role Phone Manny Tejada DO Primary Care Provi delmy Reason for Visit * Reason Onset Date Comments STAIR AAA 07/04/2023 Encounter Details Date Type Department Care Team (Late st Contact Info) Description 07/04/2023 Telephone ST[facility]IR [facility] [address] [place], [place] [id number] Program, Stair [address] [place] [address] STAIR [facility] Allergies Active Allergy Reactions Criticality Noted Date Comments Ticagrelor Other (Please comment) High 02/17/2019 (Brilinta), Shortness of breath documented as of this encounter (statuses as of 04/02/2024) Medications Medication Sig Dispensed Refills Start Date End Date Status ZYRTEC 10 MG PO TABS one tab by mouth daily 34 5 8 Active DAILY VALUE MULTIVITAMIN PO TABS None Entered Active oxygen GAS 2 LPM via NC with exertion and during hours of sleep. 1 Each 8 Active atorvaSTATin (LIPITOR) 80 MG Tablet Take [...] the morning. Active azithromycin (ZITHROMAX) 250 MG TabletIndications:C OPD, severe (HCC),COPD exacerbation (HCC) COPD, take when instructed by Pulm. TAKE TWO TABLETS BY MOUTH TODAY, AND THEN ONE TABLET DAILY 6 Tab 9 Active Additional Information Patient taking differently: Rescue-COPD, take when instructed by Pulm. TAKE TWO TABLETS BY MOUTH TODAY, AND THEN ONE TABLET DAILY, Reported on 09/19/2020 Fluticasone Propionate 50 MCG/ACT Nasal Suspension Administer 2 Sprays into each nostril in the morning. 1 Bottle 5 0 Active PreserVision AREDS 2+Multi Vit Oral Capsule Take by mouth daily. Active predniSONE 20 MG Oral Tablet (Deltasone) COPD RESCUE - TAKE 2 TABLETS BY MOUTH DAILY FOR 5 DAYS. TAKE WITH FOOD IN THE MORNING. 10 Tablet 3 Active Montelukast Sodium 10 MG Oral Tablet (Singulair)Indicati ons:COPD, group D, by GOLD 2017 classification ([facility]),Chronic hypoxemic respiratory failure (HCC) TAKE 1 TABLET BY MOUTH ONCE DAILY IN THE EVENING 90 Tablet 3 4 Active Trelegy Ellipta 100-62.5-25 MCG/ACT Aerosol Powder Breath Activated (Fluticasone-Umecli dinium-Vilanterol) INHALE 1 PUFF ONCE DAILY RINSE MOUTH AFTER USE 180 Each 3 3 10/28/19 24 Discontinued Albuterol Sulfate HFA 108 (90 Base) MCG/ACT Inhalation Aerosol SolutionIndications :COPD, group D, by GOLD 2017 classification ([facility]) INHALE 2 PUFFS BY MOUTH EVERY 4 HOURS NEEDED FOR SHORTNESS OF BREATH , COUGH, OR WHEEZING. 18 g 5 3 01/06/20 24 Discontinued Hospital, Clinic, or Other Facility Administered Medication [...] mRNA, LNP-s, No Pre serve, 2-Dose Series ([employer]) 03/14/2021,09/02/2020,08/12/2020 Pneumococcal Conjugate Vacc, 13 Valent (Prevnar) [...] encounter Miscellaneous Notes * Telephone Encounter - Geeta Weiss LPN - 04/02/2024 10:59 AM EDT Received STAIR AAA referral in error. Patient needs pulmonary clearance for AAA repair from Dr Jorgensen. Patient already has appt scheduled with pulmonary for surgial clearance 04/08/24. Will not be enrolled in ST[facility]IR [facility] due to patient following outside of [facility]. * Telephone Encounter - Geeta Weiss LPN - 07/04/2023 9:47 AM EST AAA - Clinical Summary Name: Bowen Kent Age: [age] year old AAA Review: Initial Follow-up Encounter Provider: N/A Patient Identified by: Problem List Report Imaging Interpretation: CT Type of Result: AAA >= 4 cm AAA Care Plan Imaging Recommendation: Other - details below Details: None AAA Care Plan Visit Recommendation: New Routine Referral to Vascular Surgery Details: None Next steps: [facility]. Time spent: 10 minutes Geeta Weiss LPN Coordinator ALONZO (System to Track Abnormalities of Importance Reliably) Narrative & Impression EXAM: CT CHEST LOW DOSE SCAN LUNG CANCER SCREEN 1 YEAR FOLLOW UP - 05/21/2021 9:22 am HISTORY: Lung Cancer Screening TECHNIQUE: Noncontrast low-dose CT (LDCT) chest per standard departmental protocol COMPARISON: CT CHEST LOW DOSE SCAN LUNG CANCER SCREEN INITIAL dated 06/06/2020; CT CHEST LOW DOSE SCAN LUNG CANCER SCREEN dated 05/31/2019; CT CHEST WO CONTRAST dated 05/25/2018 FINDINGS: Lung Screening Specific (LungRADS): -new 8 x 12 mm noncalcified opacity right upper lobe image 132 series 10, 137 series 8, 126 series 6 -numerous stable calcified granulomas, largest right lower lobe 26 mm -stable noncalcified grouped nodules right lung apex, largest 4 mm image 41 series 10, unchanged from 05/25/2018 consistent with benign etiology. -punctate subpleural nodules left upper lobe image 109 series 10, unchanged -punctate right upper lobe subpleural nodule image 119 series 10, unchanged Potentially Significant Incidentals (LungRADS Category S): None. Pulmonary incidentals: Advanced panlobular pulmonary emphysema. Linear scarring in the lungs bilaterally. Bubbly secretions are present within the trachea. Other Incidentals: Calcified atherosclerotic changes in the aorta and coronary arteries partly visualized infrarenal abdominal aortic aneurysm measuring at least 42 x 42 mm (was 39 x 39 mm at same approximate level). This is incompletely seen. Punctate nonobstructing bilateral renal calculi or vascular calcificationsnoted. Cholecystectomy. Degenerative changes in the spine. Unchanged L1 superior vertebral endplatecompression. Unchanged left adrenal nodule, 16 x 17 mm, indeterminate density, consistent with adenoma given the lack of change since 07/26/17. IMPRESSION IMPRESSION: 1. LungRADS Category 4B: Positive - Suspicious finding requiring clinical evaluation. New 8 x 12 mm noncalcified right upper lobe opacity. A 1 month low-dose CT might be considered to address potentially infectious or inflammatory process. Alternatively, a PET-CT might be considered. 2. LungRADS Category S: Positive. 42 x 42 mm infrarenal abdominal aortic aneurysm, larger than 06/06/2020. 3. Incidental findings as above. RECOMMENDATIONS: 1. Management of the significant lung nodule(s) will be done by the Lung Cancer Screening Program (Pulmonary/Thoracic Surgery review to determine next step). 2. Management of the significant incidental finding is deferred to the primary care provider. documented in this encounter Plan of Treatment Upcoming Encounters Date Type Department Care Team (Late st Contact Info) Description 04/08/2024 11:20 AM EDT Office Visit Pulmonary Medicine, [facility] 132 [facility] [place] [address] Kwesi Thompson MD [address] [place] [address] 05/21/2024 10:00 AM EST Imaging Radiology [facility]st [facility] [place] 132 [facility] [place] [address] 02/15/2025 10:30 AM EDT Office Visit Sleep Disorders Ctr [facility] 132 [facility] [place] [phone] Jaylin Shah CRNP 132 [facility] [place] [address] Scheduled Procedures Name Priority Associated Diagnoses Date/Ti [...] filedocumented as of this encounter Care Teams Inspector Casing Relationship Specialty [place] [address] [place] [address] [place] [address] PCP - General Family Medicine 02/28/22 documented as of this encounter
--- OUTSIDE RECORDS SUMMARY | 2024-04-21 16:45 | External Medical Summary | Continuity of Care Document ---
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 Name Role Phone Manny Tejada Primary Care Physician [phone] [id number] Date(s): 03/31/24 - 03/31/24 [facility] [address], [address] [place] [address] [phone] Encounter Diagnosis AAA (abdominal aortic aneurysm)(Discharge Diagnosis) - 02/26/24 AAA (abdominal aortic aneurysm)(Discharge Diagnosis) - 03/31/24 Discharge Disposition: Home or Self Care Attending Physician: MD Jameel, Kirill Jaimes Referring Physician: MD Watts Jeffrey G Allergies, Adverse Reactions, Alerts Substance Criticality Severity Reaction Reaction Severity Status Brilinta (ticagrelor) Shortness of breath Active Medications Albuterol (Eqv-Ventolin HFA) 90 mcg/inh inhalation aerosol INHALE 2 PUFFS BY MOUTH EVERY 4 HOURS NEEDED FOR SHORTNESS OF BREATH, COUGH, OR WHEEZING Start Date: 02/26/24 Status: Ordered Aspir 81 oral delayed release tablet Start: 02/26/24 8:56:00 AM EDT, 1 tab, PO, Daily Start Date: 02/26/24 Status: Ordered atorvastatin 80 mg oral tablet TAKE 1 TABLET BY MOUTH ONCE DAILY IN THE EVENING Start Date: 02/26/24 Status: Ordered calcium-vitamin D 500 mg-5 mcg (200 intl units) oral tablet Start: 02/26/24 8:57:00 AM EDT, 1 tab, PO, Daily Start Date: 02/26/24 Status: Ordered cetirizine 10 mg oral tablet Start: 02/26/24 8:55:00 AM EDT, 1 tab, PO, Daily, PRN: as needed for allergy symptoms Start Date: 02/26/24 Status: Ordered cholecalciferol 125 mcg (5000 intl units) oral tablet Start: 02/26/24 8:57:00 AM EDT, 1 tab, PO, Daily Start Date: 02/26/24 Status: Ordered clopidogrel 75 mg oral tablet TAKE 1 TABLET BY MOUTH ONCE DAILY IN THE MORNING Start Date: 02/26/24 Status: Ordered Echinacea Start: 02/26/24 8:56:00 AM EDT, 1500 mg po daily Start Date: 02/26/24 Status: Ordered fluoride-potassium nitrate 1.1%-5% topical paste BRUSH ON TEETH AT BEDTIME AFTER NORMAL BRUSHING, DO NOT EAT, DRINK OR RINSE FOR 30 MINUTES Start Date: 02/26/24 Status: Ordered furosemide 20 mg oral tablet Start: 02/26/24 8:54:00 AM EDT, 1 tab, PO, Daily, PRN: shortness of breath, edema, wt gain Start Date: 02/26/24 Status: Ordered Metoprolol Tartrate 50 mg oral tablet TAKE 1 & 1/2 (ONE & ONE-HALF) TABLETS BY MOUTH TWICE DAILY Start Date: 02/26/24 Status: Ordered montelukast 10 mg oral tablet TAKE 1 TABLET BY MOUTH ONCE DAILY IN THE EVENING Start Date: 02/26/24 Status: Ordered multivitamin Start: 02/26/24 8:56:00 AM EDT, 1 tab, PO, Daily Start Date: 02/26/24 Status: Ordered nitroglycerin 0.4 mg sublingual tablet Start: 02/26/24 8:58:00 AM EDT, 1 tab, SL, q5min, Disp# 25 tab, PRN: as needed for chest pain Start Date: 02/26/24 Status: Ordered oxygen 2L/NC Start: 02/26/24 8:52:00 AM EDT, oxygen 2L/NC Start Date: 02/26/24 Status: Ordered potassium chloride 20 mEq oral tablet, extended release Start: 02/26/24 8:55:00 AM EDT, 1 tab, PO, Daily, to take when prn lasix is used Start Date: 02/26/24 Status: Ordered tamsulosin 0.4 mg oral capsule TAKE 1 CAPSULE BY MOUTH ONCE DAILY Start Date: 02/26/24 Status: Ordered Trelegy Ellipta 100 mcg-62.5 mcg-25 mcg/inh inhalation powder INHALE 1 PUFF BY MOUTH ONCE DAILY. RINSE MOUTH AFTER USE Start Date: 02/26/24 Status: Ordered Mental Status 03/31/24 Barriers to Learning one year None evide nt Mandatory Health Literacy Documentation Yes Health Literacy Communication Barriers N ever Primary Language [place] Problem List Condition Confirmation Course Effective Dates Status Health St atus Informant AAA (abdominal aortic aneurysm) Confirmed Active Diagnosis Diagnosis Type Effective Dates Health Status Cl inical Service Informant AAA (abdominal aortic aneurysm) Discharge Diagnosis 02/26/24 Non-Specified AAA (abdominal aortic aneurysm) Discharge Diagnosis 03/31/24 Vital Signs Most recent to oldest [Reference Range]: 1 Heart Rate 86 bpm (03/31/24 9:34 AM) Blood Pressure 100/58mmHg (03/31/24 9:34 AM) Cuff Pulse Pressure 42 mmHg (03/31/24 9:34 AM) BP Location # 1 Left Arm (03/31/24 9:34 AM) Social History Social History Type Response Smoking Status Former Smoker, quit > 1 yr Sex Male Sex Representation Male (finding) Patient Care team information Care Team Personnel Name: DO Tejada Jason M Position: Referring Member Role: Primary Care Provider Address: [facility] [address] [place] [address]
--- NOTE | 2024-04-21 18:14 | Critical Care Consultation ---
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 Jorgensen on 04/21/2024 Monitor neurological signs for lower extremities Monitor pulses Monitor H&H --Hypertension/dyslipidemia and peripheral vascular disease On metoprolol 75 mg twice daily, Plavix 75 as well as atorvastatin 80 mg on a daily basis -- COPD On Trelegy 100 at home Noted exacerbation --Multiple pulmonary nodules Most of them are calcified with largest calcified granuloma in the right lower lobe Some solid nodules measuring up to 8 mm Patient does follow-up with lung cancer screening -- Nocturnal hypoxia Uses 2 L at night -- BPH Continue with tamsulosin --Prophylaxis VTE: None GI: None Lines: Peripheral, right radial Diet: Cardiac Plan: Strict in and out Monitor neurological signs as well as urine output given the abdominal aortic aneurysm repair Keep O2 saturation between 90-92% Continue with inhalers Monitor for signs of bleed Please note the above document was generated using voice recognition software. It may contain grammatical, syntax or spelling errors.Any formal questions or concerns about the content, text or information contained within the body of this dictation should be directly addressed to the provider for clarification. History of Present Illness Attending Physician: Kirill Jorgensen MD History of Present Illness 78-year-old male present to the hospital for pEVAR Past medical history: COPD, hypertension, dyslipidemia, peripheral vascular disease Patient was sent to the ICU for postop care At the time of examination patient's blood pressure was in the 130s, heart rate in the high 70s to low 80s He was not in any respiratory distress. He was saturating 96-97% on 2 L nasal cannula Patient's was in the room at the time of examination. He complained of some soreness at the groin. Having the feeling of defecate on and off Denied any abdominal pain Complaining of some tenderness in the left chest which went away on subsequent breaths. Denied any shortness of breath No headache, no blurry vision No difficulty swallowing. Social history: Approximately 27-ymjd-cnuo smoking history, quit at the age of 68. 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 Allergies Allergy/AdvReac Type Severity Reaction Status Date / Time ticagrelor [From Brilinta] Allergy shortness Verified 04/21/24 09:42 of breath Home Medications Medication Instructions Recorded Confirmed Type Oxygen Home #1 ea 11/17/18 04/01/24 History albuterol sulfate 90 mcg/actuation 2 puffs inhalation Q4H PRN 11/17/18 04/21/24 Rx aerosol inhaler shortness of breath or wheezing #18 grams multivitamin 1 tab PO QAM 11/17/18 04/21/24 History echinacea 500 mg capsule 1,500 mg PO QAM 06/29/21 04/21/24 History sodium fluoride 1.1 %-potassium 1 applic PO HS 05/29/22 04/21/24 History nitrate 5 % dental paste (Denta 5000 Plus Sensitive) miscellaneous medical supply See Rx Instructions miscellaneous 06/04/22 04/21/24 Rx .COMPLEX #1 ea fluticasone fur. 100 mcg-umeclid 1 inh inhalation QAM 06/20/22 04/21/24 History 62.5 mcg-vilant 25 mcg inhalat.powder (Trelegy Ellipta) furosemide 20 mg tablet 20 mg PO DAILY PRN edema #30 tabs 06/20/22 04/21/24 Rx Flutter Valve #2 ea 09/03/22 04/01/24 Rx aspirin 81 mg chewable tablet 81 mg PO QPM 10/21/22 04/21/24 History cetirizine 10 mg tablet (Zyrtec) 10 mg PO QAM 10/23/22 04/21/24 History montelukast 10 mg tablet 10 mg PO QPM 10/23/22 04/21/24 History (Singulair) potassium chloride 20 mEq 20 meq PO UD PRN WHEN USING LASIX 10/23/22 04/21/24 History tablet,extended release calcium 500 mg (as 1 tab PO DAILY 01/15/23 04/21/24 History carbonate)-vitamin D3 3.125 mcg (125 unit) tablet nitroglycerin 0.4 mg sublingual 0.4 mg sublingual Q5M PRN chest 07/22/23 04/21/24 Rx tablet pain #20 tabs metoprolol tartrate 50 mg tablet 75 mg (1.5 x 50 mg) PO BID #270 03/22/24 11/06/24 Rx tabs atorvastatin 80 mg tablet 80 mg PO QPM #90 tabs 10/28/23 04/21/24 Rx cholecalciferol (vitamin D3) 125 125 mcg PO DAILY 04/13/24 04/21/24 History mcg (5,000 unit) tablet (Vitamin D3) guaifenesin 1,200 mg tablet, 1,200 mg PO BID 04/13/24 04/21/24 History extended release 12 hr (Mucinex) dsaipdsi-bfg-dxnjpr 5 mg-zeaxanth 1 cap PO QPM 04/13/24 04/21/24 History 1 mg-bilberry 7.5 mg-herbal capsule ([employer] Formula) azelastine 137 mcg (0.1 %) nasal intranasal nasal congestion 04/21/24 History spray clopidogrel 75 mg tablet (Plavix) 75 mg PO QAM 04/21/24 04/21/24 History tamsulosin 0.4 mg capsule (Flomax) 0.4 mg PO DAILY 04/21/24 04/21/24 History Patient History Medical History Pulmonary nodule monitored with chest CT Chronic hypoxemic respiratory failure follows with pulm; last seen 04/08/24; per note, stable and using O2 HS only Tobacco use 40 pack year hx; quit 2013 Peripheral vascular disease AAA, 5.1cm 12/2023 Left ventricular diastolic dysfunction Hypercholesteremia 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 NSTEMI, LAD ARIEL x 2, 05/2017 HTN (hypertension) Peripheral edema prn lasix Inguinal hernia left, monitoring Aortic aneurysm AAA, 5.1cm 12/2023 BPH (benign prostatic hyperplasia) History of cardiac arrhythmia frequent PVCs; follows w/ Dr Watts Chronic obstructive pulmonary disease severe; follows with pulm; per 02/13/24 note "chronic hypoxemic respiratory failure" On home oxygen therapy USES 2L O2 NIGHT; PRN DURING THE DAY History of pneumonia 10 YEARS AGO, [facility] TOLD PT TO USE O2 AT NIGHT Environmental allergies NSTEMI (non-ST elevated myocardial infarction) 05/2017 [facility]: NSTEMI: CARDIAC CATH, 2 ARIEL LAD; F/U DR. WATTS, [place] Surgical History Hx of colonoscopy History of heart artery stent 05/2017 [facility], 2 ARIEL LAD; F/U DR. WATTS History of cardiac cath 05/2017 [facility], 2 ARIEL LAD; F/U DR. WATTS History of cholecystectomy Family History Other No pertinent family history Denies family history of Ovarian cancer Prostate cancer Myocardial infarction Breast cancer Colorectal cancer Social History Smoking Status: Former smoker Tobacco Type: Cigarettes Age Started Using Tobacco: 21; Age Quit Using Tobacco: 68; packs per day: 1; Smoking End Date: quit 10 yrs ago; Second Hand Exposure: Yes (HX GROWING UP); Do You Dip or Chew Tobacco: No; Tobacco Cessation Education Requested by Patient: No Hx Alcohol Use: No Hx Substance Use: No Preferred Language: Cypriot Communication Ability: Effective Visual Impairment: Limited Hearing Ability: Normal 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 Required: No Beliefs That Will Affect Care: None marital status: Current Living Situation: Spouse current occupational status: employed How many Children do You have: 2 Other Information That Helps Us Care for You: No Feels Safe at Home: Yes Safety Concerns: Feels Safe At This Time Childhood Exposure to Second-Hand Smoke: Yes Diet: regular caffeine: Yes during the past year weight has: decreased > 10 lbs Dental Care, Regularly: Yes Physical Activity Frequency: 3-4 Times per Week Seatbelt Use: always Sunscreen Use: Yes Do you think of yourself as: straight/heterosexual Gender Identity: Male Assistive Devices: Glasses and Oxygen - at Night Review of Systems Review of Systems: All systems reviewed & are unremarkable except as noted in HPI & below Physical Exam Physical Exam: Constitutional: No acute distress HEENT: EOMI, PERRLA Respiratory system: Good air entry bilaterally, no wheeze, no rhonchi, mild crackles bilateral lower lobes CVS: S1-S2 positive, no murmurs or gallops Abdomen: Soft, nontender, nondistended, positive bowel sounds x4 Extremities: +2 pulses bilaterally radialis/+1 pulse bilateral dorsalis pedis, no cyanosis, no edema Neuro: Awake alert oriented x3 Psych: Normal mood and affect G/U: Positive Webb Right and left groin bandage in place. No surrounding hematoma appreciated Skin: no rashes, warm and dry Lymphatic: no cervical or axillary lymphadenopathy Results & Data Results & Data Vital Signs (Past 12 Hours) Vital Signs Temp Pulse Pulse Pulse Resp BP BP 04/21/24 16:30 81 21 119/66 04/21/24 16:18 79 23 04/21/24 16:06 71 20 04/21/24 16:00 69 04/21/24 16:00 79 04/21/24 15:31 36.8 C 74 19 113/80 04/21/24 15:30 69 22 04/21/24 15:18 71 15 04/21/24 14:54 71 19 101/75 04/21/24 14:52 71 04/21/24 14:49 04/21/24 14:48 36.5 C 04/21/24 14:30 76 18 114/60 04/21/24 14:20 36.4 C L 77 16 112/77 04/21/24 14:10 76 16 111/78 04/21/24 14:00 80 16 113/77 04/21/24 13:50 80 18 107/77 04/21/24 13:40 82 16 117/84 04/21/24 13:32 36.4 C L 81 16 130/88 04/21/24 09:53 36.5 C 64 18 BP BP Pulse Ox O2 Del Method O2 Flow Rate 04/21/24 16:30 96 04/21/24 16:18 97 04/21/24 16:06 100 04/21/24 16:00 04/21/24 16:00 04/21/24 15:31 122/66 97 Oxymask 2 04/21/24 15:30 97 Nasal Cannula 2 04/21/24 15:18 97 2 04/21/24 14:54 95 04/21/24 14:52 04/21/24 14:49 Nasal Cannula 2 04/21/24 14:48 04/21/24 14:30 112/59 L 97 Nasal Cannula 2 04/21/24 14:20 111/58 L 98 Nasal Cannula 2 04/21/24 14:10 118/62 96 Oxymask 4 04/21/24 14:00 115/60 96 Oxymask 4 04/21/24 13:50 116/60 97 Oxymask 4 04/21/24 13:40 113/60 98 Oxymask 4 04/21/24 13:32 114/59 L 96 Oxymask 6 04/21/24 09:53 139/97 94 Room Air Coding Level of Care Code 65729 IN/OBS CONSULT LVL 4,60M Diagnoses Aortic aneurysm I71.9 BPH (benign prostatic hyperplasia) N40.0 COPD (chronic obstructive pulmonary disease) J44.9 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
[2024-04-21] MEDS: oxyCODONE/ACETAMINOPHEN 5mg/325mg TAB PO PRN (18:43)
[2024-04-21] MEDS: MONTELUKAST SODIUM 10 MG TABLET PO SCH (20:13)
[2024-04-21] MEDS: METOPROLOL TARTRATE 25 MG TAB PO SCH (20:13)
[2024-04-21] MEDS: guaiFENesin 600 MG TABCR PO SCH (20:13)
[2024-04-21] MEDS: ceFAZolin 2000MG 2,000 MG/15 ML SYR IV SCH (20:14)
[2024-04-21] MEDS: ASPIRIN 81 MG CHEW PO SCH (20:14)
[2024-04-21] MEDS: ATORVASTATIN 40 MG TAB PO SCH (20:14)
[2024-04-21] MEDS ORDERED: NON-FORMULARY MEDICATION (Mv-Mn-Lutein-Zeax-Bilber-Hb277 [Macular Health Formula] 5-1-7.5 PO SCH (21:00)
[2024-04-21] MEDS: ONDANSETRON INJ 2 MG/ML 2 ML VIAL IV PRN (21:31)
[2024-04-21] MEDS: MoRPHine SULFATE 4 MG/ML 1 ML CARP\\VIAL IV PRN (22:20)
[2024-04-22 05:22] LABS: Basophils # (auto) 0.02 K/uL (0.00-0.20); Basophils % (auto) 0.2 %; Eosinophils # (auto) 0.02 K/uL (0.00-0.50); Eosinophils % (auto) 0.2 %; Hematocrit (blood only) 38.8 % (42.0-52.0); Hemoglobin 13.2 g/dl (14.0-18.0); Immature Granulocytes # (auto) 0.04 K/uL (0.01-0.20); Immature Granulocytes % (auto) 0.4 %; Lymphocytes # (auto) 0.63 K/uL (1.20-3.40); Lymphocytes % (auto) 6.3 %; Mean Corpuscular Hemoglobin 31.9 pg (25.0-34.0); Mean Corpuscular Volume 93.7 fL (80.0-100.0); Mean Platelet Volume 9.6 fL (9.4-12.4); Monocytes # (auto) 1.23 K/uL (0.11-0.59); Monocytes % (auto) 12.2 %; Neutrophils # (auto) 8.14 K/uL (1.40-6.50); Neutrophils % (auto) 80.7 %; Platelet Count 143 K/uL (130-400); RDW Coefficient of Variation 12.5 % (11.5-14.5); RDW Standard Deviation 43.1 fL (36.4-46.3); Red Blood Count 4.14 M/uL (4.70-6.10); White Blood Count 10.08 K/ul (4.8-10.8)
[2024-04-22 05:38] LABS: BUN Creatinine Ratio 20.5 (10-20); Calcium 8.6 mg/dl (8.6-10.3); Creatinine Clr Calc Pharmacy 75.3 ml/min; Potassium 4.1 mmol/L (3.5-5.1)
--- NOTE | 2024-04-22 08:31 | Critical Care Progress Note ---
Date of Service April 22, 2024 Assessment & Plan (1) Aortic aneurysm: (2) BPH (benign prostatic hyperplasia): (3) COPD (chronic obstructive pulmonary disease): (4) CAD in [place] artery: (5) Hypercholesterolemia: (6) Left ventricular diastolic dysfunction, NYHA class 1: (7) Arrhythmia: Plan -- Abdominal aortic aneurysm S/p pEVAR by Dr. Jorgensen on 04/21/2024 Monitor neurological signs for lower extremities Monitor pulses Monitor H&H --Hypertension/dyslipidemia and peripheral vascular disease On metoprolol 75 mg twice daily, Plavix 75 as well as atorvastatin 80 mg on a daily basis -- COPD On Trelegy 100 at home Noted exacerbation --Multiple pulmonary nodules Most of them are calcified with largest calcified granuloma in the right lower lobe Some solid nodules measuring up to 8 mm Patient does follow-up with lung cancer screening -- Nocturnal hypoxia Uses 2 L at night -- BPH Continue with tamsulosin --Prophylaxis VTE: None GI: None Lines: Peripheral, right radial Diet: Cardiac Plan: In/out: +910, urine output 1090 Still having some oozing from the right groin site. H&H is stable, continue to monitor H&H Recommend using the radial line Continue with O2 supplementation to keep oxygen saturation between 90-92% Incentive spirometry Disposition as per vascular surgeon Please note the above document was generated using voice recognition software. It may contain grammatical, syntax or spelling errors.Any formal questions or concerns about the content, text or information contained within the body of this dictation should be directly addressed to the provider for clarification. Admission and Anticipated Discharge Date Admission Date: April 21, 2024 Subjective Patient seen and examined at bedside. No acute distress Overnight he did have some bleeding from the right groin site. It was again pressure addressed. Hemoglobin is still stable Was saturating 85% on room air. I put him on 2 L Systolic blood pressure was in the 140s. Denied any chest pain, no shortness of breath Denied any abdominal pain Fair appetite, no nausea or vomiting Review of Systems 2 Review of Systems: All systems reviewed & are unremarkable except as noted in Subjective Physical Exam 2 Physical Exam: Constitutional: No acute distress HEENT: EOMI, PERRLA Respiratory system: Good air entry bilaterally, no wheeze, no rhonchi, minimal crackles bilateral lower lobes CVS: S1-S2 positive, no murmurs or gallops Abdomen: Soft, nontender, nondistended, positive bowel sounds x4 Extremities: +2 pulses bilaterally radialis/+1 pulse bilateral dorsalis pedis, no cyanosis, no edema Neuro: Awake alert oriented x3 Psych: Normal mood and affect G/U: Positive Webb Right and left groin bandage in place. No surrounding hematoma appreciated Skin: no rashes, warm and dry Lymphatic: no cervical or axillary lymphadenopathy Results & Data Results & Data Vital Signs (Past 12 Hours) Vital Signs Temp Pulse Pulse Resp BP BP BP 04/22/24 08:00 04/22/24 08:00 76 130/88 04/22/24 08:00 76 04/22/24 07:35 36.5 C 77 20 124/80 144/85 H 04/22/24 07:24 04/22/24 06:18 76 16 130/88 04/22/24 05:03 94 H 20 126/77 04/22/24 04:03 93 H 20 137/83 04/22/24 04:00 36.6 C 04/22/24 04:00 86 04/22/24 03:12 90 17 129/77 04/22/24 02:15 90 18 113/76 04/22/24 01:54 86 04/22/24 01:03 91 H 18 120/71 04/22/24 00:00 36.6 C 04/22/24 00:00 95 H 17 106/71 04/22/24 00:00 81 119/66 04/21/24 23:03 97 H 19 106/72 04/21/24 22:06 87 15 130/83 04/21/24 21:15 97 H 18 131/83 Pulse Ox O2 Del Method O2 Flow Rate 04/22/24 08:00 Nasal Cannula 2 04/22/24 08:00 04/22/24 08:00 04/22/24 07:35 94 Nasal Cannula 2 04/22/24 07:24 92 Nasal Cannula 2 04/22/24 06:18 99 04/22/24 05:03 94 04/22/24 04:03 97 04/22/24 04:00 04/22/24 04:00 04/22/24 03:12 96 04/22/24 02:15 94 04/22/24 01:54 04/22/24 01:03 93 04/22/24 00:00 04/22/24 00:00 92 04/22/24 00:00 04/21/24 23:03 92 04/21/24 22:06 95 04/21/24 21:15 98 Laboratory Results 04/22/24 05:02 04/22/24 05:02 Coding Level of Care Code 92692 SUB INP/OBS CARE 2/35MIN Diagnoses Aortic aneurysm I71.9 BPH (benign prostatic hyperplasia) N40.0 COPD (chronic obstructive pulmonary disease) J44.9 CAD in [place] artery I25.10 Hypercholesterolemia E78.00 Left ventricular diastolic dysfunction, NYHA class 1 I51.9 Arrhythmia I49.9
[2024-04-22] MEDS: UMECLIDINIUM/VILANTEROL 62.5/25MCG 7 PUFFS/INHALER INH SCH (08:44)
[2024-04-22] MEDS: FLUTICASONE FUROATE 100MCG 14 PUFFS/INHALER INH SCH (08:44)
[2024-04-22] MEDS: MULTIVITAMIN TAB PO SCH (08:45)
[2024-04-22] MEDS: CETIRIZINE HCL 10 MG TABLET PO SCH (08:45)
[2024-04-22] MEDS: CHOLECALCIFEROL 125 MCG (5,000 UNITS) TAB PO SCH (08:45)
[2024-04-22] MEDS: CALCIUM 600MG + VIT D 400 IU TAB PO SCH (08:45)
[2024-04-22] MEDS: CLOPIDOGREL BISULFATE 75 MG TAB PO SCH (08:45)
[2024-04-22] MEDS: TAMSULOSIN HCL 0.4 MG CAP PO SCH (08:45)
[2024-04-22] MEDS ORDERED: NON-FORMULARY MEDICATION (Fluticasone-Umeclidin-Vilanter [Trelegy Ellipta] 100-62.5-25 mcg INH SCH (09:00)
[2024-04-22] MEDS ORDERED: ECHINACEA 500 MG PO SCH (09:00)
[2024-04-22] MEDS: ALBUTEROL HFA 8 GM INHALER INH PRN (09:31)
--- NOTE | 2024-04-22 14:58 | Surgery Progress Note ---
Date of Service April 22, 2024 Assessment & Plan (1) Aortic aneurysm: Plan: Patient POD #1 from a PEVAR with endoanchors. There was some bleeding from the right groin post op. Dressing removed today. No active bleeding seen. Pressure was applied and new pressure dressing applied. We will keep him one more day due to the bleeding. If no further bleeding will be D\C'd tomorrow Admission and Anticipated Discharge Date Admission Date: April 21, 2024 Subjective Patient without complaint. He did have sanguinous oozing from the right groin during the night. Pressure dressing was applied. Still has blood on this dressing. Physical Exam Constitutional: WD/WN, vitals as above Respiratory: normal respiratory effort; no respiratory distress Cardiovascular: RRR, no murmur, no edema Extremities: normal capillary refill Gastrointestinal (Abdomen): Inspection/Auscultation: abdomen normal to inspection; abdomen not distended Percussion/Palpation: abdomen soft; abdomen nontender Skin: + incision (puncture sites clean) Pressure dressings were removed. There was a large clot present under the dressing on the right side. No active bleeding seen. Neurologic: CN's II-XI intact bilaterally and moves all extremities Psychiatric: A+Ox3, euthymic affect Results & Data Vital Signs (Past 12 Hours) Vital Signs Temp Pulse Pulse Resp BP BP BP 04/22/24 12:00 64 04/22/24 11:06 64 18 04/22/24 10:54 36.6 C 71 18 105/71 114/67 04/22/24 10:27 64 16 04/22/24 09:12 78 19 148/95 H 04/22/24 08:00 66 19 04/22/24 08:00 04/22/24 08:00 76 130/88 04/22/24 08:00 76 04/22/24 07:35 36.5 C 77 20 124/80 144/85 H 04/22/24 07:24 04/22/24 07:15 80 16 04/22/24 06:18 76 16 130/88 04/22/24 05:03 94 H 20 126/77 04/22/24 04:03 93 H 20 137/83 04/22/24 04:00 36.6 C 04/22/24 04:00 86 04/22/24 03:12 90 17 129/77 Pulse Ox O2 Del Method O2 Flow Rate 04/22/24 12:00 04/22/24 11:06 95 04/22/24 10:54 93 Nasal Cannula 2 04/22/24 10:27 96 04/22/24 09:12 85 L 04/22/24 08:00 95 04/22/24 08:00 Nasal Cannula 2 04/22/24 08:00 04/22/24 08:00 04/22/24 07:35 94 Nasal Cannula 2 04/22/24 07:24 92 Nasal Cannula 2 04/22/24 07:15 88 L 04/22/24 06:18 99 04/22/24 05:03 94 04/22/24 04:03 97 04/22/24 04:00 04/22/24 04:00 04/22/24 03:12 96
[2024-04-23 04:57] LABS: Basophils # (auto) 0.03 K/uL (0.00-0.20); Basophils % (auto) 0.3 %; Eosinophils # (auto) 0.18 K/uL (0.00-0.50); Hematocrit (blood only) 36.7 % (42.0-52.0); Hemoglobin 12.2 g/dl (14.0-18.0); Immature Granulocytes # (auto) 0.05 K/uL (0.01-0.20); Immature Granulocytes % (auto) 0.6 %; Lymphocytes # (auto) 1.13 K/uL (1.20-3.40); Lymphocytes % (auto) 12.6 %; Mean Corpuscular Hemoglobin 31.1 pg (25.0-34.0); Mean Corpuscular Hgb Conc 33.2 g/dL (32.0-36.0); Mean Corpuscular Volume 93.6 fL (80.0-100.0); Mean Platelet Volume 9.6 fL (9.4-12.4); Monocytes # (auto) 1.51 K/uL (0.11-0.59); Monocytes % (auto) 16.8 %; Neutrophils % (auto) 67.7 %; Platelet Count 142 K/uL (130-400); RDW Coefficient of Variation 12.6 % (11.5-14.5); RDW Standard Deviation 43.5 fL (36.4-46.3); Red Blood Count 3.92 M/uL (4.70-6.10)
[2024-04-23 05:12] LABS: BUN Creatinine Ratio 20.3 (10-20); Calcium 8.6 mg/dl (8.6-10.3); Creatinine Clr Calc Pharmacy 85.2 ml/min; Magnesium 1.8 mg/dl (1.7-2.4); Potassium 4.1 mmol/L (3.5-5.1)
[2024-04-23 06:02] VITALS: BP 130/84
[2024-04-23] MEDS: MAGNESIUM SULFATE / D5W 1 GM/100 ML BAG IV ONE (06:37)
[2024-04-23 07:48] VITALS: TEMP 98.1
--- NOTE | 2024-04-23 08:01 | Critical Care Progress Note ---
Date of Service April 23, 2024 Assessment & Plan (1) Aortic aneurysm: (2) BPH (benign prostatic hyperplasia): (3) COPD (chronic obstructive pulmonary disease): (4) CAD in [place] artery: (5) Hypercholesterolemia: (6) Left ventricular diastolic dysfunction, NYHA class 1: (7) Arrhythmia: Plan -- Abdominal aortic aneurysm S/p pEVAR by Dr. Jorgensen on 04/21/2024 Monitor neurological signs for lower extremities Monitor pulses Monitor H&H --Hypertension/dyslipidemia and peripheral vascular disease On metoprolol 75 mg twice daily, Plavix 75 as well as atorvastatin 80 mg on a daily basis -- COPD On Trelegy 100 at home Noted exacerbation --Multiple pulmonary nodules Most of them are calcified with largest calcified granuloma in the right lower lobe Some solid nodules measuring up to 8 mm Patient does follow-up with lung cancer screening -- Nocturnal hypoxia Uses 2 L at night -- BPH Continue with tamsulosin --Prophylaxis VTE: None GI: None Lines: Peripheral, right radial Diet: Cardiac Plan: In/out: +395, urine output 1725 H&H is stable Right groin bandage dressing has been removed Magnesium has been replaced Disposition as per vascular surgery Please note the above document was generated using voice recognition software. It may contain grammatical, syntax or spelling errors.Any formal questions or concerns about the content, text or information contained within the body of this dictation should be directly addressed to the provider for clarification. Admission and Anticipated Discharge Date Admission Date: April 21, 2024 Subjective Patient seen and examined at bedside. No acute distress, no adverse events overnight Was saturating 94-95% on 2 L nasal cannula The dressing from the right groin was removed. No bleeding was appreciated. Fair appetite No nausea vomiting Denied any chest pain Review of Systems 2 Review of Systems: All systems reviewed & are unremarkable except as noted in Subjective Physical Exam 2 Physical Exam: Constitutional: No acute distress HEENT: EOMI, PERRLA Respiratory system: Good air entry bilaterally, no wheeze, no rhonchi, minimal crackles bilateral lower lobes CVS: S1-S2 positive, no murmurs or gallops Abdomen: Soft, nontender, nondistended, positive bowel sounds x4 Extremities: +2 pulses bilaterally radialis/+1 pulse bilateral dorsalis pedis, no cyanosis, no edema Neuro: Awake alert oriented x3 Psych: Normal mood and affect G/U: Positive Webb Skin: no rashes, warm and dry Lymphatic: no cervical or axillary lymphadenopathy Results & Data Results & Data Vital Signs (Past 12 Hours) Vital Signs Temp Pulse Pulse Resp BP BP BP 04/23/24 07:47 36.7 C 04/23/24 07:30 95 H 22 04/23/24 07:18 79 19 04/23/24 07:00 80 23 04/23/24 06:00 79 20 130/84 133/75 04/23/24 05:09 75 19 140/91 04/23/24 04:00 130/70 04/23/24 03:57 36.6 C 75 20 133/84 04/23/24 03:00 85 19 134/84 04/23/24 02:03 36.6 C 76 23 112/71 04/23/24 01:03 78 23 121/84 04/23/24 00:00 36.8 C 72 21 117/78 04/22/24 23:46 72 122/68 04/22/24 23:42 72 04/22/24 23:09 71 23 125/68 04/22/24 22:00 36.6 C 72 21 105/76 04/22/24 21:00 94 H 20 118/78 04/22/24 20:03 37 C 89 21 126/86 Pulse Ox O2 Del Method O2 Flow Rate 04/23/24 07:47 04/23/24 07:30 94 Room Air 04/23/24 07:18 97 04/23/24 07:00 95 04/23/24 06:00 95 Nasal Cannula 2 04/23/24 05:09 96 04/23/24 04:00 04/23/24 03:57 97 04/23/24 03:00 98 04/23/24 02:03 97 04/23/24 01:03 96 04/23/24 00:00 96 04/22/24 23:46 04/22/24 23:42 04/22/24 23:09 97 04/22/24 22:00 99 04/22/24 21:00 97 04/22/24 20:03 96 Laboratory Results 04/23/24 04:10 04/23/24 04:10 Coding Level of Care Code 67273 SUB INP/OBS CARE 07/10MIN Diagnoses Aortic aneurysm I71.9 BPH (benign prostatic hyperplasia) N40.0 COPD (chronic obstructive pulmonary disease) J44.9 CAD in [place] artery I25.10 Hypercholesterolemia E78.00 Left ventricular diastolic dysfunction, NYHA class 1 I51.9 Arrhythmia I49.9
--- NOTE | 2024-04-23 08:39 | Surgery Progress Note ---
Date of Service April 23, 2024 Assessment & Plan (1) Aortic aneurysm: Plan: Patient POD #2 from a PEVAR with endoanchors. No bleeding noted after dressing removal today. OK for d/c home. Admission and Anticipated Discharge Date Admission Date: April 21, 2024 Subjective 78 yo m POD #2 after uncomplicated PEVAR with endoanchors, seen in f/u today. Mild bleeding from punctures yesterday, so kept overnight to monitor. Per pt, no further bleeding since dressing change. Denies any complaints presently. Review of Systems Review of Systems: All systems reviewed & are unremarkable except as noted in HPI & below Physical Exam Constitutional: WD/WN, vitals as above Respiratory: normal respiratory effort; no respiratory distress Cardiovascular: RRR, no murmur, no edema Extremities: normal capillary refill Gastrointestinal (Abdomen): Inspection/Auscultation: abdomen normal to inspection; abdomen not distended Percussion/Palpation: abdomen soft; abdomen nontender Skin: + incision (puncture sites clean) Neurologic: CN's II-XI intact bilaterally and moves all extremities Psychiatric: A+Ox3, euthymic affect Results & Data Vital Signs (Past 12 Hours) Vital Signs Temp Pulse Pulse Resp BP BP BP 04/23/24 07:47 36.7 C 04/23/24 07:30 95 H 22 04/23/24 07:18 79 19 04/23/24 07:00 80 23 04/23/24 06:00 79 20 130/84 133/75 04/23/24 05:09 75 19 140/91 04/23/24 04:00 130/70 04/23/24 03:57 36.6 C 75 20 133/84 04/23/24 03:00 85 19 134/84 04/23/24 02:03 36.6 C 76 23 112/71 04/23/24 01:03 78 23 121/84 04/23/24 00:00 36.8 C 72 21 117/78 04/22/24 23:46 72 122/68 04/22/24 23:42 72 04/22/24 23:09 71 23 125/68 04/22/24 22:00 36.6 C 72 21 105/76 04/22/24 21:00 94 H 20 118/78 Pulse Ox O2 Del Method O2 Flow Rate 04/23/24 07:47 04/23/24 07:30 94 Room Air 04/23/24 07:18 97 04/23/24 07:00 95 04/23/24 06:00 95 Nasal Cannula 2 04/23/24 05:09 96 04/23/24 04:00 04/23/24 03:57 97 04/23/24 03:00 98 04/23/24 02:03 97 04/23/24 01:03 96 04/23/24 00:00 96 04/22/24 23:46 04/22/24 23:42 04/22/24 23:09 97 04/22/24 22:00 99 04/22/24 21:00 97
--- NOTE | 2024-04-23 08:40 | Discharge Summary ---
Date of Service April 23, 2024 Admission HPI Per Admitting Provider Mr. 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 He is was found to have an abdominal aortic aneurysm approximately 3 years ago. It has been stable at 4.3 cm for 2 years. This year's ultrasound showed up and grown to 5.1 cm in size. He is asymptomatic at this time from his aneurysm. He has no complaints of claudication and he has no complaints of cerebrovascular sufficiency. He does have a cardiac history with stents placed 5 years ago. He has been asymptomatic since then. He also has a history of hypertension. He was a smoker previously but quit in 2015. Admission Exam Per Admitting Provider On exam he is awake alert and oriented x 3. He is in no apparent distress. His blood pressure is 104/70 on the left and 96/70 on the right. His radials and carotids are +2 bilaterally. He has no carotid bruits. Lungs are clear. Heart had a regular rate and rhythm. Abdominal exam is benign. There is a widened aortic pulse in the mid epigastrium. Femorals and pedal pulses are +2 bilaterally. There is mild bilateral lower extremity edema. Neuro exam is intact to motor and sensory function Principal Diagnosis 1. s/p PEVAR with endoanchors 2. AAA Discharge Exam Constitutional WD/WN, vitals as above Respiratory normal respiratory effort; no respiratory distress Cardiovascular RRR, no murmur, no edema Extremities: normal capillary refill Gastrointestinal (Abdomen) Inspection/Auscultation: abdomen normal to inspection; abdomen not distended Percussion/Palpation: abdomen soft; abdomen nontender Skin + incision (puncture sites clean) Neurologic CN's II-XI intact bilaterally and moves all extremities Psychiatric A+Ox3, euthymic affect Discharge Data Allergies Allergy/AdvReac Type Severity Reaction Status Date / Time ticagrelor [From Brilinta] Allergy shortness Verified 04/21/24 09:42 of breath Consultations 04/21/24 14:49 Consult Survey Director Routine Procedures Performed Operation Date: 04/21/24 10:50 Actual Procedures p Endovascular Repair of Abdominal Aortic Aneurysm,Insertion of Endo Anchors,Mechanical Closure of Bilateral Femoral Arteries(Bilateral) - Kirill Jorgensen MD Ordered Studies 04/21/24 07:12 EV AAA repair aorta only Routine US EV guide vascular access Routine Hospital Course (1) Aortic aneurysm: Patient POD #2 from a PEVAR with endoanchors. No bleeding noted after dressing removal today. OK for d/c home. Total Time Total Time Spent Total Time Spent (In Minutes): 0 Discharge Plan Discharge Items Patient Disposition: Home - Self-Care Reason For Visit: Abdominal Aortic Aneurysm Discharge Diagnosis: 1. s/p PEVAR with endoanchors 2. AAA Activity: Per Instructions section Non-emergency contact: Primary Care Provider and Surgeon Call non-emergency contact if: your symptoms worsen, your pain is not controlled, your pain is concerning for you, you have a fever, your wound has increased redness and your wound has increased drainage Follow-up/Referrals: Manny Tejada DO [Primary Care Provider] - (Follow up with your PCP within 2 weeks) Kirill Jorgensen MD [Physician] - (Follow up with Dr Jorgensen or Ana Delvalle PA-C in 2 weeks) Diet: Heart Healthy Addtl Attending Provider Instructions: SPECIAL CARE INSTRUCTIONS: Diet: * You may return to previous diet. Medications: * Continue to take your medications as directed. Incision/Puncture Site Care: * You will have an incision or puncture in each of your groins. Liquid glue will be used to seal your incisions/puncture site. This will lift off as the incisions/puncture sites heal. * If Liquid glue is not used, there will be small dressings covering your incisions. After you get home, you may remove the dressings and shower - allowing the warm soapy water to run over it. * Be sure to dry the sites well and keep them dry. * DO NOT SOAK IN A TUB/POOL/etc. UNTIL ALL SURGICAL SITES ARE HEALED. DO NOT REMOVE THE GLUE UNTIL THE INCISIONS HEAL. Restrictions: * Limit yourself to principal engineer activity for the first week. * You may walk and go up and down steps. * Avoid excessive bending or movement at the level of the incisions or punctures. Risks and Possible Complications: * Infection/Drainage/Bleeding - Drainage or bleeding from the incisions/puncture site should be minimal. If you have excessive bleeding or drainage, call our office ([phone]) right away. * Pain/Numbness - You may experience some mild pain or soreness at your incision sites. You may also have some numbness around the incisions or into the insides of your thighs. Bruising is normal and should resolve within 2 weeks. * Changes in Appetite or Bowel Habits - Mostly related to anesthesia and pain medication, some patients have reported decreased appetite and/or problems with constipation. These symptoms usually improve over a few weeks. Remembering to take an [id number] stool softener, as directed, will help you to avoid constipation. Call our office and seek emergent treatment if you develop: * Fever or chills * Have a temperature greater than 101 degrees F * Any redness or purulent drainage from your incisions or punctures * Severe abdominal, chest or back pain SKIN IRRITATION: * You may experience some redness and/or swelling in the area where radiation was administered. If any skin irritation occurs, please contact your family physician. You will be receiving a call from the Vascular Surgery Nurse after you are discharged. FOLLOW UP VISIT: It is important for you to keep your follow up appointments with your medical provider. Keep any scheduled doctor appointments. Pending Studies at Discharge: No Stand-Alone Forms: My [employer], Smoking Cessation Medications and DC Order Prescriptions: Continued miscellaneous medical supply Misc See Rx Instructions miscellaneous .COMPLEX Qty: 1 0RF Rx Instructions: mini portable oxygen concentrator. Use as directed aspirin 81 mg tablet,chewable 81 mg PO QPM metoprolol tartrate 50 mg tablet 75 mg PO BID Qty: 270 3RF atorvastatin 80 mg tablet 80 mg PO QPM Qty: 90 3RF (DME) Oxygen Home Liters Per Minute See Dose Instructions .ROUTE .MEDSUPPLY Qty: 1 Rx Instructions: 2 l/m VIA NASAL CANULA AT BEDTIME multivitamin tablet 1 tab PO QAM albuterol sulfate 90 mcg/actuation HFA aerosol inhaler 2 puffs inhalation Q4H PRN (Reason: shortness of breath or wheezing) Qty: 18 0RF echinacea 500 mg capsule 1,500 mg PO QAM Patient Comments: Pt taking 2 760 mg tablets once daily (DME) Flutter Valve Device See Rx Instructions .Route Qty: 2 0RF Rx Instructions: As directed calcium carbonate-vitamin D3 500 mg-3.125 mcg (125 unit) tablet 1 tab PO DAILY nitroglycerin 0.4 mg tablet, sublingual 0.4 mg SL Q5M PRN (Reason: chest pain) Qty: 20 3RF Trelegy Ellipta 100-62.5-25 mcg blister with device 1 inh inhalation QAM furosemide 20 mg tablet 20 mg PO DAILY PRN (Reason: edema) Qty: 30 2RF Rx Instructions: Take for the next 3 days and then as needed. Do not take with hydrochlorothiazide sodium fluoride-pot nitrate [Denta 5000 Plus Sensitive] 1.1-5 % paste 1 applic PO HS Rx Instructions: USE AFTER REGULAR BRUSHING, THEN DO NOT RINSE, DRINK OR EAT AFTER. cetirizine [Zyrtec] 10 mg tablet 10 mg PO QAM montelukast [Singulair] 10 mg tablet 10 mg PO QPM potassium chloride 20 mEq tablet extended release 20 meq PO UD PRN (Reason: WHEN USING LASIX) Rx Instructions: 20 mEq orally take 1 tablet daily when needing to use Lasix.; guaifenesin [Mucinex] 1,200 mg Tablet Extended Release 12hr 1,200 mg PO BID cholecalciferol (vitamin D3) [Vitamin D3] 125 mcg (5,000 unit) Tablet 125 mcg PO DAILY Macular Health Formula 5-1-7.5 mg Capsule 1 cap PO QPM clopidogrel [Plavix] 75 mg tablet 75 mg PO QAM tamsulosin [Flomax] 0.4 mg capsule 0.4 mg PO DAILY azelastine 137 mcg (0.1 %) spray,non-aerosol INTRANASAL Discharge Orders: Discharge Order (Routine); Ordered 04/23/24 Ordered By: Ana Delvalle Admission Data Admit Date/Time: 04/21/24 11:25 Attending Provider: Kirill Jorgensen Admit Provider: Kirill Jorgensen Primary Care Provider: Manny Tejada Other Providers: Ash Magallon; Boo Tafoya; Gray Sandhu; Nnamdi Posada; Wilbert Mitchell; Janet Soliman; Bryan Cruz; Kamille Gary; Opal Murray; Aime García; Jordi Batres; Enriqueta Ramírez
[2024-04-23 10:51] VITALS: PULSE 68; RESP 12; O2SAT 98
== END 2024-04-23 11:10 | disposition home or self-care (01) | DRG 269 ==
LOC: ASU 09:12 → 1E 11:25